=== PATIENT | female | born 1950 | race Caucasian/White ===

== ENCOUNTER → 2016-06-27 | Outpatient (CLI) | payer OTHER ==
[~2016-06-27] MED LIST: ACET1TAB84 PO; ALBU1AER9 INH; ALPR-411 PO; ASPITAB44 PO; BCTROWC TOP; BENA20TA14 PO; CHOL20005 PO; CLOB1OIN2 TOP; FLUT0.15 NAE; GLC/500 PO; GLUC1CAP35 PO; LEVO200T PO; LEVO200T6 PO; LEVO75TA5 PO; LORA5TAB3 PO; MENT4GEL TOP; NAPR1TAB9 PO; OXYC1TAB PO; OXYC20TA50 PO; SALI0.6517 NAE; TRAZ100T29 PO; [UNRECOGNIZED DRUG - REMARK] TOP
--- NOTE | 2016-06-27 09:12 | DIAGNOSTIC IMAGING REPORT ---
RIGHT FOOT MIN 3 VIEWS ROUTINE CLINICAL HISTORY: M76.61,F41.1, right foot and Achilles pain COMPARISON: None. DISCUSSION: No acute fractures are visualized. There is a tiny Achilles insertional spur and tiny plantar calcaneal spur. There is dorsal soft tissue swelling. There are minor degenerative changes present. IMPRESSION: Ankle and dorsal soft tissue swelling. No fractures identified. No evidence of erosive disease. Electronically signed by: Washington Aponte M.D. 06/27/2016 9:11 AM Dictated Date/Time: 06/27/2016 9:10 AM
--- NOTE | 2016-06-27 09:13 | DIAGNOSTIC IMAGING REPORT ---
RIGHT ANKLE 3 VIEWS HISTORY: Right ankle and foot pain. COMPARISON: None. FINDINGS: There is no fracture or dislocation. Thickening of the distal Achilles tendon. Small plantar and posterior calcaneal spurs. Diffuse soft tissue swelling. No radiopaque foreign bodies. IMPRESSION: 1. No fracture or dislocation within the right ankle. 2. Distal thickening of the Achilles tendon suggestive of tendinosis. Electronically signed by: Vinod Toro M.D. 06/27/2016 9:12 AM Dictated Date/Time: 06/27/2016 9:10 AM
== END | disposition home or self-care (01) ==
LOC: C.RAD1850 08:34 → MERGE 08:34
PROVIDERS: ATTEND Family Medicine
DX: M76.61 Achilles tendinitis, right leg (principal); F41.1 Generalized anxiety disorder

== ENCOUNTER → 2016-07-09 | Outpatient (CLI) | payer OTHER ==
[~2016-07-09] MED LIST changes: +ALBU18002 INH; +BCTROWC EXT; +SALI0.6510 NAE; +[UNRECOGNIZED DRUG - CODE] TOP
--- NOTE | 2016-07-09 10:44 | DIAGNOSTIC IMAGING REPORT ---
RIGHT LOWER EXT JOINT WITHOUT HISTORY: Right LEG ACHILLES TENDONITIS, RT ANKLE PAIN Right TECHNIQUE: Multiplanar multisequence MRI of the right ankle was performed without contrast. COMPARISON STUDY: Right ankle 06/27/2016. FINDINGS: Abnormal signal and thickening within the Achilles tendon most pronounced distally. This is consistent with acute tendinosis. Trace fluid within the retrocalcaneal bursa consistent with a bursitis. No acute fracture or dislocation. There is subcutaneous trace edema within the ankle. Cartilage spaces are maintained. The medial and lateral stabilizing ligaments are intact. The flexor and extensor tendons are normal in course, caliber, and signal intensity. Abnormal focal thickening and increased signal within the peroneus longus tendon as it crosses the lateral malleolus. This is consistent with a tendinopathy. There is also thinning of the peroneus brevis tendon consistent with a partial tear/tendinopathy. The plantar fascia appears intact. However, there is a focal area of susceptibility artifact at the proximal attachment of the plantar fascia best seen on sagittal image 13. This could represent a metallic foreign body. Mild degenerative changes within the midfoot. IMPRESSION: 1. Acute Achilles tendinosis with associated retrocalcaneal bursitis. 2. Tendinopathy/partial tear of the peroneus longus and brevis tendons. 3. Focal metallic artifact at the proximal attachment of the plantar fascia. This could represent a foreign body. Dedicated CT is recommended for further evaluation. 4. Subcutaneous edema within the ankle. Electronically signed by: Vinod Toor M.D. 07/09/2016 10:43 AM Dictated Date/Time: 07/09/2016 10:35 AM
== END | disposition home or self-care (01) ==
LOC: C.OPENMRI 08:50 → MERGE 08:50
PROVIDERS: ATTEND Physical Medicine & Rehabilitation
DX: M76.61 Achilles tendinitis, right leg (principal); M77.51 Other enthesopathy of right foot and ankle; R60.9 Edema, unspecified

== ENCOUNTER → 2016-07-25 | Outpatient (CLI) | payer OTHER ==
--- NOTE | 2016-07-25 14:17 | DIAGNOSTIC IMAGING REPORT ---
THYROID ULTRASOUND HISTORY: FATIGUE COMPARISON: None. FINDINGS: Right lobe: 5.9 x 2.6 x 2.0 cm. Diffusely hypoechoic. No nodules. Left lobe: 6.7 x 3.0 x 2.6 cm. Diffusely hypoechoic. No nodules. Isthmus: 1.2 cm. No nodules. Right cervical lymph node demonstrating a slightly thickened cortex measuring 1.6 x 1.0 x 0.9 cm. IMPRESSION: Mildly enlarged and diffusely hypoechoic thyroid gland. No nodules identified. A single borderline enlarged right cervical lymph node. Electronically signed by: Vinod Toro M.D. 07/25/2016 2:15 PM Dictated Date/Time: 07/25/2016 2:12 PM
== END | disposition home or self-care (01) ==
LOC: C.ULTR 13:04
PROVIDERS: ATTEND Family Medicine
DX: E07.9 Disorder of thyroid, unspecified (principal); R53.83 Other fatigue; R59.0 Localized enlarged lymph nodes

== ENCOUNTER → 2016-08-15 | Day surgery (SDC) | payer OTHER ==
[2016-07-30 09:46] VITALS: Ht 154.9 cm; Wt 131.8 kg
[~2016-08-15] VITALS: Ht 154.9 cm; Wt 131.8 kg
[~2016-08-15] MED LIST changes: +BUPIVACAINE 0.25% 2.5MG/ML PF 10 ML VIAL INFIL ONE; +IOPAMIDOL INJ 61% 15 ML VIAL ONE; +LIDOCAINE HCL 1% MPF 5 ML VIAL ONE; -OXYC1TAB PO
--- NOTE | 2016-08-15 11:56 | History & Physical Bridge - [place] ---
H&P Re-Evaluation Bridge Note: I have examined the patient, reviewed the History & Physical and in the interval since the performance of the History & Physical I have noted the following changes of clinical significance: No changes noted
--- NOTE | 2016-08-15 12:26 | Discharge Instructions ---
Discharge Instructions Date of Service August 15, 2016. Visit Reason for Visit: Saroiliitis Discharge Discharge Diagnosis / Problem: low back pain Discharge Goals Goal(s): Decrease discomfort, Improve function Medications Stopped Medications Name(s): Patient reports taking one aleve last evening Activity Recommendations Activity Limitations: resume your previous activity Anesthesia . Post Anesthesia Instructions: If you have had General Anesthesia or IV Sedation: * Do not drive today. * Resume driving when surgeon permits. * Do not make important decisions or sign legal documents today. * Call surgeon for: 1. Temperature elevations greater than 101 degrees F. 2. Uncontrollable pain. 3. Excessive bleeding. 4. Persistent nausea and vomiting. 5. Medication intolerance (nausea, vomiting or rash). * For nausea and vomiting use only clear liquids such as: tea, soda, bouillon until nausea subsides, then gradually increase diet as tolerated. * If you have any concerns or questions, call your surgeon's office. If physician is unavailable and it is an emergency, call 911 or go to the nearest emergency room. . Diet Recommendations Recommended Home Diet: resume previous diet Procedures Procedures Performed: Right Sacroiliac Joint Injection Pending Studies Studies pending at discharge: no Medical Emergencies . Who to Call and When: Medical Emergencies: If at any time you feel your situation is an emergency, please call 911 immediately. . Non-Emergent Contact Non-Emergency issues call your: Specialist . . "Provider Documentation" section prepared by Shakir Ogden. .
[2016-08-15 12:36] VITALS: BP 125/80; PULSE 79; O2SAT 96
--- NOTE | 2016-08-15 13:08 | OPERATIVE REPORT ---
DATE OF OPERATION: 08/15/2016 PREOPERATIVE DIAGNOSIS: Right sacroiliitis. POSTOPERATIVE DIAGNOSIS: Same. PROCEDURE: Right sacroiliac joint injection under fluoroscopic guidance. SURGEON: Dr. Shakir Ogden. INDICATIONS: The patient is a 66-year-old white female that presents today for a right SI joint injection for chronic longstanding right SI pain that has not responded to conservative measures. She is doing a little bit better now that she has been off of her walker boot for issues of peroneal and Achilles tendinopathy of the right lower extremity. PHYSICAL EXAMINATION: Pleasant female seated comfortably in no apparent distress. She has point tenderness to palpation of the right SI joint. It is exquisitely tender. This is worse with extension. She has no focal proximal weakness. CONSENT: Verbal and written consent was obtained from the patient. Risks and benefits were reviewed. Risks include but are not limited to abscess and allergic reaction. She wishes to proceed. PROCEDURE: The patient was taken back to the special procedures room of [facility]. She was unable to maintain a prone position, was maintained at a 30 degree angle. The fluoroscope was adjusted to try to capture the edge of the hip and sacral area. Overlying skin was anesthetized using 5 mL of Lidocaine 1% 25 gauge 1.5-inch needle a 22 gauge 5 inch needle was then used to contact bone at the junction between the hip and the sacrum which was presumed to be the joint. She then underwent injection after negative aspiration of 40 mg of Depo-Medrol, 1.5 mL of bupivacaine 0.25%. Injection was well tolerated. DISPOSITION: The patient is taken out into the discharge recovery area where she will be discharged home once discharge criteria have been met. Follow up in the [facility] office in 2-4 weeks. I attest to the content of the Intraoperative Record and any orders documented therein. Any exceptions are noted below. ONELIA
== END | disposition home or self-care (01) ==
LOC: X.SURG 11:13
PROVIDERS: ATTEND Physical Medicine & Rehabilitation
DX: M46.1 Sacroiliitis, not elsewhere classified (principal)

== ENCOUNTER → 2016-09-16 | Outpatient (CLI) | payer OTHER ==
[~2016-09-16] MED LIST changes: -BUPIVACAINE 0.25% 2.5MG/ML PF 10 ML VIAL INFIL ONE; -IOPAMIDOL INJ 61% 15 ML VIAL ONE; -LIDOCAINE HCL 1% MPF 5 ML VIAL ONE
--- NOTE | 2016-09-16 17:03 | DIAGNOSTIC IMAGING REPORT ---
ULTRASOUND RIGHT VENOUS DOPP LOWER EXT UNILAT CLINICAL HISTORY: Right leg pain and swelling COMPARISON STUDY: 10/17/2015 FINDINGS: Real-time and color flow Doppler imaging were performed. Flow was seen within the femoral, popliteal and calf veins with no intraluminal thrombus demonstrated. The saphenous vein is patent. The study was moderately limited from technical standpoint, as the patient would not allow optimal compression due to pain. IMPRESSION: No evidence of right lower extremity DVT. Electronically signed by: Washington Aponte M.D. 09/16/2016 5:02 PM Dictated Date/Time: 09/16/2016 5:01 PM
--- NOTE | 2016-09-22 13:07 | CODING QUERY MEDICAL NECESSITY ---
SUPPORTING DIAGNOSIS NEEDED Dr. Ogden, A supporting diagnosis is required for the test/procedure performed on this patient in order for us to be reimbursed by the patient's insurance. Please provide a supporting diagnosis for the following test/procedure listed below next to the test name along with your signature. *If there is no additional diagnosis for this patient that would support the following test/procedure please document that below next to the test/procedure. Test(s)/Procedure(s) that require a supporting diagnosis: * ([id number]) VENOUS DOPPLER LOWER EXT UNILA DIAGNOSIS: DATE OF SERVICE: 09/16/16 Provider Signature: Date: Thank you Earnest Nguyen [facility] Information Management Once completed, please kindly fax back to [phone] For questions please call [phone]
== END | disposition home or self-care (01) ==
LOC: C.ULTR 16:09
PROVIDERS: ATTEND Physical Medicine & Rehabilitation
DX: M79.89 Other specified soft tissue disorders (principal); M79.604 Pain in right leg

== ENCOUNTER → 2016-10-17 | Day surgery (SDC) | payer OTHER ==
[2016-09-24 08:35] VITALS: Ht 154.9 cm; Wt 131.8 kg
[~2016-10-17] VITALS: Ht 154.9 cm; Wt 131.8 kg
[~2016-10-17] MED LIST changes: -ALBU18002 INH; -BCTROWC EXT; +BUPIVACAINE 0.25% 2.5MG/ML PF 10 ML VIAL ONE; +IOPAMIDOL INJ 61% 15 ML VIAL ONE; +LACTATED RINGER'S 1000ML 1,000 ML IV SCH; -LEVO200T PO; +LIDOCAINE HCL 1% MPF 5 ML VIAL ONE; -SALI0.6510 NAE; -[UNRECOGNIZED DRUG - CODE] TOP
[2016-10-17 09:53] VITALS: BP 150/88; PULSE 88; TEMP 36.9; O2SAT 97
== END | disposition home or self-care (01) ==
LOC: X.SURG 09:35
PROVIDERS: ATTEND Physical Medicine & Rehabilitation
DX: M46.1 Sacroiliitis, not elsewhere classified (principal); Z53.9 Procedure and treatment not carried out, unspecified reason

== ENCOUNTER → 2016-12-17 | Day surgery (SDC) | payer OTHER ==
[2016-11-18 10:30] VITALS: BMI 55.0
[~2016-12-17] VITALS: Ht 154.9 cm; Wt 126.0 kg
[~2016-12-17] MED LIST changes: +ALBU18002 INH; +ATROPINE SULFATE 0.1 MG/ML 5ML SYR IV PRN; +BCTROWC EXT; +DEXTROSE 5% 100ML 100 ML IV ONE; +EpHEDrine SULFATE INJ 50 MG/ML AMP IV PRN; +FENTANYL CITRATE INJ 50 MCG/1 ML 2 ML VIAL IV PRN; +FENTANYL CITRATE INJ 50 MCG/1 ML 2 ML VIAL ONE; +FLUMAZENIL 0.1 MG/1 ML 10 ML VIAL IV PRN; +HYDROmorphone INJ 2 MG/ML SYR/VIAL IV PRN; -IOPAMIDOL INJ 61% 15 ML VIAL ONE; +LABETALOL HCL IV 5 MG/ML 20ML IV PRN; +LEVO200T PO; +LIDOCAINE 2% 20 MG/ML 5ML SYR ONE; +LIDOCAINE HCL 1% 20 ML VIAL ONE; -LIDOCAINE HCL 1% MPF 5 ML VIAL ONE; +NALOXONE HCL 0.4 MG/1 ML VIAL/CARP IV PRN; +NURSING VERBAL MED ORDER ONE; +ONDANSETRON INJ 2 MG/ML 2 ML VIAL IV PRN; +ONDANSETRON INJ 2 MG/ML 2 ML VIAL ONE; +PHENYLEPHRINE 100MCG/ML 5ML SYR IV PRN; +PROPOFOL IV EMULSION 10 MG/ML 20 ML VIAL IV ONE; +SALI0.6510 NAE
[2016-12-17 07:58] VITALS: Ht 154.9 cm; Wt 126.0 kg
--- NOTE | 2016-12-17 09:33 | Discharge Instructions ---
Discharge Instructions Date of Service Dec 17, 2016. Visit Reason for Visit: Sacroiliitis Discharge Discharge Diagnosis / Problem: low back pain Discharge Goals Goal(s): Decrease discomfort, Improve function Activity Recommendations Activity Limitations: resume your previous activity Anesthesia . Post Anesthesia Instructions: If you have had General Anesthesia or IV Sedation: * Do not drive today. * Resume driving when surgeon permits. * Do not make important decisions or sign legal documents today. * Call surgeon for: 1. Temperature elevations greater than 101 degrees F. 2. Uncontrollable pain. 3. Excessive bleeding. 4. Persistent nausea and vomiting. 5. Medication intolerance (nausea, vomiting or rash). * For nausea and vomiting use only clear liquids such as: tea, soda, bouillon until nausea subsides, then gradually increase diet as tolerated. * If you have any concerns or questions, call your surgeon's office. If physician is unavailable and it is an emergency, call 911 or go to the nearest emergency room. . Diet Recommendations Recommended Home Diet: no limitations Procedures Procedures Performed: Right Cooled SI Joint Denervation Pending Studies Studies pending at discharge: no Medical Emergencies . Who to Call and When: Medical Emergencies: If at any time you feel your situation is an emergency, please call 911 immediately. . Non-Emergent Contact Non-Emergency issues call your: Specialist . . "Provider Documentation" section prepared by Shakir Ogden. .
[2016-12-17 09:47] VITALS: TEMP 36.5
[2016-12-17 10:14] VITALS: BP 130/91; PULSE 79; O2SAT 96
--- NOTE | 2016-12-17 10:21 | Anesthesia Progress Nt - [facility] ---
Anesthesia Post Op Note Date & Time Dec 17, 2016 at 10:21 Vital Signs Pain Intensity: 10 Vital Signs Past 12 Hours Date Time Temp Pulse Resp B/P (MAP) Pulse Ox O2 Delivery O2 Flow Rate FiO2 12/17/16 10:14 79 18 130/91 (104) 96 Room Air 12/17/16 09:47 36.5 86 20 175/66 (102) 96 Room Air 12/17/16 07:38 36.5 84 16 139/68 (91) 96 Room Air Notes Mental Status: alert / awake / arousable, participated in evaluation Pt Amnestic to Procedure: Yes Nausea / Vomiting: adequately controlled Pain: adequately controlled Airway Patency, RR, SpO2: stable & adequate BP & HR: stable & adequate Hydration State: stable & adequate Anesthetic Complications: no major complications apparent
--- NOTE | 2016-12-17 10:26 | OPERATIVE REPORT ---
DATE OF OPERATION: 12/17/2016 PREOPERATIVE DIAGNOSIS: Chronic right sacroiliitis pain. POSTOPERATIVE DIAGNOSIS: Same. PROCEDURE: Right radiofrequency cooled SI joint denervation. INDICATIONS: The patient is a 66-year-old white female who has chronic right sacroiliac joint pain. She responded favorably to an SI joint injection for a diagnostic purposes. She presents today for a right SI joint denervation procedure as she is continuing to have problems of the right SI joint. PHYSICAL EXAMINATION: Pleasant female. She has point tenderness to palpation of her right SI joint. It is worse with extension. She has no focal weakness of lower extremities and has some chronic venous stasis changes of the right lower extremity. CONSENT: Verbal and written consent was obtained from the patient. Risks and benefits were reviewed. Risks include, but are not limited to abscess, allergic reaction and nerve denervation. The patient wishes to proceed. DESCRIPTION OF PROCEDURE: The patient was taken back into OR #4 of the [facility]. She was maintained in a prone position, which was slightly uncomfortable for her. Backside was cleansed with Betadine x3 and a dry sterile dressing was applied. Fluoroscope was used to identify the right sacroiliac joint. The overlying skin at S1 was anesthetized with total of 6 mL of lidocaine 1%. Initially with 1.5-inch needle and then with a 3-inch needle to get lower depth. She then underwent placement of the denervation needle. It was placed in 8 separate spots and after placement and confirmation fluoroscopically and contact of the sacrum, she underwent denervation for 2 minutes and 30 seconds at each of the 8 spots. The 8 spots that were done where the right sacral ala, the right superior lateral S1 foramen area, the right lateral S1 foramen area, the right inferior lateral S1 foramen area, the right S2 superior foramen area, the right lateral S2 foramen area, the right lateral inferior S2 foramen area and then lastly the right lateral S3 superior foramen region. Procedure was well tolerated. DISPOSITION: 1. She was taken to the discharge recovery area, where she will be discharged home once discharge criteria have been met. 2. Follow up in the [facility] office in 2-4 weeks. I attest to the content of the Intraoperative Record and any orders documented therein. Any exception s are noted below.
== END | disposition home or self-care (01) ==
LOC: X.SURG 06:35
PROVIDERS: ATTEND Physical Medicine & Rehabilitation
DX: M46.1 Sacroiliitis, not elsewhere classified (principal); M79.7 Fibromyalgia; G47.33 Obstructive sleep apnea (adult) (pediatric)

== ENCOUNTER → 2017-01-21 | Outpatient (CLI) | payer OTHER ==
[~2017-01-21] MED LIST changes: -ALBU1AER9 INH; -ATROPINE SULFATE 0.1 MG/ML 5ML SYR IV PRN; -BCTROWC TOP; -BUPIVACAINE 0.25% 2.5MG/ML PF 10 ML VIAL ONE; -DEXTROSE 5% 100ML 100 ML IV ONE; -EpHEDrine SULFATE INJ 50 MG/ML AMP IV PRN; -FENTANYL CITRATE INJ 50 MCG/1 ML 2 ML VIAL IV PRN; -FENTANYL CITRATE INJ 50 MCG/1 ML 2 ML VIAL ONE; -FLUMAZENIL 0.1 MG/1 ML 10 ML VIAL IV PRN; -GLC/500 PO; -HYDROmorphone INJ 2 MG/ML SYR/VIAL IV PRN; -LABETALOL HCL IV 5 MG/ML 20ML IV PRN; -LACTATED RINGER'S 1000ML 1,000 ML IV SCH; -LEVO200T6 PO; -LEVO75TA5 PO; -LIDOCAINE 2% 20 MG/ML 5ML SYR ONE; -LIDOCAINE HCL 1% 20 ML VIAL ONE; -NALOXONE HCL 0.4 MG/1 ML VIAL/CARP IV PRN; -NURSING VERBAL MED ORDER ONE; -ONDANSETRON INJ 2 MG/ML 2 ML VIAL IV PRN; -ONDANSETRON INJ 2 MG/ML 2 ML VIAL ONE; -PHENYLEPHRINE 100MCG/ML 5ML SYR IV PRN; -PROPOFOL IV EMULSION 10 MG/ML 20 ML VIAL IV ONE; -SALI0.6517 NAE
== END | disposition home or self-care (01) ==
LOC: C.RDSM 12:00
PROVIDERS: ATTEND Physical Medicine & Rehabilitation Sports Medicine
DX: G56.01 Carpal tunnel syndrome, right upper limb (principal)

== ENCOUNTER → 2017-01-29 | Day surgery (SDC) | payer OTHER ==
[2017-01-15 08:51] VITALS: Ht 154.9 cm; Wt 125.9 kg
[~2017-01-29] VITALS: Ht 154.9 cm; Wt 125.9 kg
[~2017-01-29] MED LIST changes: -BCTROWC EXT; +BUPIVACAINE 0.25% 2.5MG/ML PF 10 ML VIAL ONE; +IOPAMIDOL INJ 61% 15 ML VIAL ONE; +LIDOCAINE HCL 1% MPF 5 ML VIAL ONE; +[UNRECOGNIZED DRUG - CODE] TOP; -[UNRECOGNIZED DRUG - REMARK] TOP
[2017-01-29 13:10] VITALS: TEMP 36.6
--- NOTE | 2017-01-29 13:15 | Discharge Instructions ---
Discharge Instructions Date of Service Jan 29, 2017. Visit Reason for Visit: Sacroiliitis Discharge Discharge Diagnosis / Problem: low back pain Discharge Goals Goal(s): Decrease discomfort, Improve function Activity Recommendations Activity Limitations: resume your previous activity Anesthesia . Post Anesthesia Instructions: If you have had General Anesthesia or IV Sedation: * Do not drive today. * Resume driving when surgeon permits. * Do not make important decisions or sign legal documents today. * Call surgeon for: 1. Temperature elevations greater than 101 degrees F. 2. Uncontrollable pain. 3. Excessive bleeding. 4. Persistent nausea and vomiting. 5. Medication intolerance (nausea, vomiting or rash). * For nausea and vomiting use only clear liquids such as: tea, soda, bouillon until nausea subsides, then gradually increase diet as tolerated. * If you have any concerns or questions, call your surgeon's office. If physician is unavailable and it is an emergency, call 911 or go to the nearest emergency room. . Diet Recommendations Recommended Home Diet: resume previous diet Procedures Procedures Performed: LEFT SACROILIAC JOINT INJECTION Pending Studies Studies pending at discharge: no Medical Emergencies . Who to Call and When: Medical Emergencies: If at any time you feel your situation is an emergency, please call 911 immediately. . Non-Emergent Contact Non-Emergency issues call your: Specialist . . "Provider Documentation" section prepared by Shakir Ogden. .
[2017-01-29 13:24] VITALS: BP 119/79; PULSE 85; O2SAT 95
--- NOTE | 2017-01-29 13:25 | OPERATIVE REPORT ---
DATE OF OPERATION: 01/29/2017 PREOPERATIVE DIAGNOSIS: Left sacroiliitis. POSTOPERATIVE DIAGNOSIS: Left sacroiliitis. PROCEDURE: Left sacroiliac joint injection under fluoroscopic guidance. INDICATIONS: This patient is a 67-year-old white female who has done very well with denervation on the right sacroiliac joint. She reports that now she has a similar symptom or pain that fills and it is increased on the left SI joint and she presents today for an SI joint injection to provide her with relief. PHYSICAL EXAMINATION: Pleasant female seated comfortably. She has tenderness to palpation of her left SI joint. She has normal lower extremity strength with negative seated straight leg raises. She has some worsening with extension on the left SI region. CONSENT: Verbal and written consent was obtained from the patient. Risks and benefits were reviewed. Risks include but are not limited to abscess and allergic reaction. The patient wishes to proceed. DESCRIPTION OF PROCEDURE: The patient was taken back in the special procedures room of the [facility] where she was maintained in a prone position. Backside was cleansed with Betadine x3 and a dry sterile dressing was applied. Fluoroscope was used to identify the left SI joint. The overlying skin was anesthetized with 4 mL of lidocaine 1% with a 25 gauge 1.5-inch needle. A 22 gauge 5 inch spinal needle was then directed under fluoroscopic guidance into the joint. Isovue 300 contrast was avoided given her allergy and she was injected after negative aspiration of 40 mg of Depo-Medrol and 1.5 mL of bupivacaine 0.25%. Injection was well tolerated. DISPOSITION: 1. The patient was taken out into the discharge recovery area where she will be discharged home once discharge criteria have been met. 2. Follow up in the [facility] office in 2-4 weeks. I attest to the content of the Intraoperative Record and any orders documented therein. Any exception s are noted below.
== END | disposition home or self-care (01) ==
LOC: X.SURG 12:16
PROVIDERS: ATTEND Physical Medicine & Rehabilitation
DX: M46.1 Sacroiliitis, not elsewhere classified (principal)

== ENCOUNTER → 2017-08-14 | Day surgery (SDC) | payer OTHER ==
[2017-06-30 15:04] VITALS: BMI 53.0
[~2017-08-14] VITALS: Ht 154.9 cm; Wt 127.3 kg
[~2017-08-14] MED LIST changes: -BUPIVACAINE 0.25% 2.5MG/ML PF 10 ML VIAL ONE; +DexMEDEtomidine HCL IV 100 MCG/ML VIAL IV ONE; +FENTANYL CITRATE INJ 50 MCG/1 ML 2 ML VIAL ONE; -GLUC1CAP35 PO; -IOPAMIDOL INJ 61% 15 ML VIAL ONE; +KETAMINE HCL INJ 50 MG/ML 10 ML VIAL ONE; +LACTATED RINGER'S 1000ML 1,000 ML IV SCH; -LIDOCAINE HCL 1% MPF 5 ML VIAL ONE; -MENT4GEL TOP; +MIDAZOLAM HCL 1 MG/ML 2ML VIAL ONE; +SODIUM CHLORIDE 0.9% INJ 10 ML VIAL ONE; -TRAZ100T29 PO
[2017-08-14 10:57] VITALS: BP 146/89; PULSE 84; TEMP 36.6; O2SAT 95; Ht 154.9 cm; Wt 127.3 kg
--- NOTE | 2017-08-14 12:23 | Anesthesiology Progress Note ---
Anesthesia Progress Note Date of Service August 14, 2017. Progress Notes The patient is a 67 with a h/o multiple multiple medical problems including HTN , DVT, GERD, DM, hypothyroidism, anxiety, depression, chronic pain, fibromyalgia and morbid obesity scheduled for MRI of the lumbar spine. The patient has been quite argumentative with the staff preoperatively and has stated that her doctor is the past "are idiots" and that her PCP " doesn't do anything for me" and that "everyone is driving me crazy." She also stated that "Dr. Okeefe screwed up my hand." Several times I tried to reassure the patient that we would do our best to make sure she was as comfortable and as safe as possible during the procedure. At one point during the preoperative evaluation, the patient also mentioned that she was worried about having a DVT. She stated that at one point last night after walking around her L leg was red and she thought more swollen, but that today the redness was gone. She has chronic pain in both legs and complains of pain when either leg is touched. There is no erythema or swelling visible. The patient stated that since her leg is better that she doesn't think she has a DVT but is just always worried about one. I told the patient that if she was worried that she could go to the ED and get it evaluated first. She then reiterated that she does not believe she has one as she is better now but that she is always paranoid about it due to her prior history. I called Dr. Betts who stated that if it seems unlikely that the patient had a DVT, but if she was still worried about it that she could go to the ED for further evaluation after the procedure. I told this to the patient who then stated that she wasn't worried about it as her leg is now better and really wants her MRI done today.
[2017-08-14 13:19] VITALS: BP 136/83; PULSE 85; TEMP 36.6; O2SAT 99
--- NOTE | 2017-08-14 13:32 | DIAGNOSTIC IMAGING REPORT ---
LUMBAR SPINE W/O CONTRAST CLINICAL HISTORY: 67 years-old Female presenting with LUMBAR RADICULOPATHY with severe spinal pain, falls, right hip pain. TECHNIQUE: Multisequence, multiplanar MR imaging of the lumbar spine was performed without the use of intravenous contrast. IV contrast: None. COMPARISON: CT from 03/07/2016. FINDINGS: Diagnostic sensitivity is significantly limited by motion artifact and limited sequences acquired due to patient intolerance. 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 Allowing for severe scoliosis, normal lumbar lordosis. Minimal edema versus fatty change eccentrically at the L5-S1 endplates. Remaining vertebral bodies maintain normal signal intensity, height, and alignment. Diffuse intervertebral disc desiccation. Anterior osteophytosis noted at several levels. No significant disc bulges. Fluid noted in the L1-2 disc space. Allowing for active fat saturated T2-weighted imaging, no gross evidence of bony edema in the L1 or L2 vertebral bodies. Asymmetric facet arthropathy noted. This results in neural foraminal narrowing to varying degrees most significant at L3-4 and L4-5. IMPRESSION: 1. Limited acquisition with motion artifact degradation of the acquired sequences. This significantly limits diagnostic sensitivity the exam. Allowing for this, severe levoscoliotic curvature of the lumbar spine with facet arthropathy resulting in neural foraminal narrowing most significantly at L3-4 and L4-5. 2. Fluid in the L1-2 disc space without convincing evidence of bony edema. This may be degenerative in etiology. Correlate clinically to exclude infectious symptoms. Electronically signed by: Jose Combs M.D. 08/14/2017 1:31 PM Dictated Date/Time: 08/14/2017 1:25 PM
[2017-08-14 13:49] VITALS: BP 100/63; PULSE 90; O2SAT 99
[2017-08-14 14:19] VITALS: BP 111/82; PULSE 82; O2SAT 100
--- NOTE | 2017-08-14 14:19 | Discharge Instructions ---
Discharge Instructions Date of Service August 14, 2017. Visit Reason for Visit: Lumbar Radiculopathy Discharge Discharge Diagnosis / Problem: Lumbar Radiculopathy Discharge Goals Goal(s): Diagnostic testing Activity Recommendations Activity Limitations: per Instructions/Follow-up section Anesthesia . Post Anesthesia Instructions: If you have had General Anesthesia or IV Sedation: * Do not drive today. * Do not drink alcohol today. * Resume driving when surgeon permits. * Do not make important decisions or sign legal documents today. * Call surgeon for: 1. Temperature elevations greater than 101 degrees F. 2. Uncontrollable pain. 3. Excessive bleeding. 4. Persistent nausea and vomiting. 5. Medication intolerance (nausea, vomiting or rash). * For nausea and vomiting use only clear liquids such as: tea, soda, bouillon until nausea subsides, then gradually increase diet as tolerated. * If you have any concerns or questions, call your surgeon's office. If physician is unavailable and it is an emergency, call 911 or go to the nearest emergency room. . Diet Recommendations Recommended Home Diet: resume previous diet Pending Studies Studies pending at discharge: yes List of pending studies: MRI Results. Follow up with your ordering physician. Medical Emergencies . Who to Call and When: Medical Emergencies: If at any time you feel your situation is an emergency, please call 911 immediately. If you have any chest pain, shortness of breath, lightheaded or dizziness, or with any other concerns please call 911 or go to the ED. . Non-Emergent Contact Non-Emergency issues call your: Primary Care Provider Call Non-Emergent contact if: you have a fever, your pain is unusual for you, your pain is concerning you, you have any medication questions . . "Provider Documentation" section prepared by Eva Liu. .
--- NOTE | 2017-08-14 14:24 | Anesthesiology Progress Note ---
Anesthesia Post Op Note Date & Time August 14, 2017 at 14:23 Vital Signs Pain Intensity: 0 Vital Signs Past 12 Hours Date Time Temp Pulse Resp B/P (MAP) Pulse Ox O2 Delivery O2 Flow Rate FiO2 08/14/17 13:49 90 18 100/63 99 Room Air 08/14/17 13:19 36.6 85 18 136/83 99 Room Air 08/14/17 10:57 36.6 84 16 146/89 (108) 95 Room Air Notes Mental Status: alert / awake / arousable, participated in evaluation Pt Amnestic to Procedure: Yes Nausea / Vomiting: adequately controlled Pain: adequately controlled Airway Patency, RR, SpO2: stable & adequate BP & HR: stable & adequate Hydration State: stable & adequate Anesthetic Complications: no major complications apparent The patient was comfortable in Phase II recovery, sitting up in bed and eating a snack. She stated she felt well with no complaints.
== END ==
LOC: C.ACU 10:08
PROVIDERS: ATTEND Physical Medicine & Rehabilitation
DX: M46.1 Sacroiliitis, not elsewhere classified (principal); M54.16 Radiculopathy, lumbar region; F41.9 Anxiety disorder, unspecified; E03.9 Hypothyroidism, unspecified; E66.01 Morbid (severe) obesity due to excess calories; E11.9 Type 2 diabetes mellitus without complications; G47.33 Obstructive sleep apnea (adult) (pediatric); M19.90 Unspecified osteoarthritis, unspecified site; Z86.711 Personal history of pulmonary embolism; Z82.49 Family history of ischemic heart disease and other diseases of the circulatory system; Z82.3 Family history of stroke; Z83.3 Family history of diabetes mellitus; Z88.1 Allergy status to other antibiotic agents; Z91.040 Latex allergy status; Z91.041 Radiographic dye allergy status; Z88.5 Allergy status to narcotic agent; Z86.73 Personal history of transient ischemic attack (TIA), and cerebral infarction without residual deficits; Z79.899 Other long term (current) drug therapy; Z87.442 Personal history of urinary calculi; Z85.41 Personal history of malignant neoplasm of cervix uteri

== ENCOUNTER 2017-11-30 21:46 | Emergency (ER) | payer OTHER ==
[~2017-11-30 21:46] MED LIST changes: +BENA10TA10 PO; -DexMEDEtomidine HCL IV 100 MCG/ML VIAL IV ONE; -FENTANYL CITRATE INJ 50 MCG/1 ML 2 ML VIAL ONE; -FLUT0.15 NAE; -KETAMINE HCL INJ 50 MG/ML 10 ML VIAL ONE; -LACTATED RINGER'S 1000ML 1,000 ML IV SCH; +LEVO75TA PO; -MIDAZOLAM HCL 1 MG/ML 2ML VIAL ONE; +NYSCR30 EXT; -SODIUM CHLORIDE 0.9% INJ 10 ML VIAL ONE
[2017-11-30 22:02] VITALS: TEMP 36.9; Ht 154.9 cm
[2017-11-30] MEDS ORDERED: SODIUM CHLORIDE 0.9% 500ML 500 ML IV STA (22:21)
[2017-11-30] MEDS ORDERED: DiphenhydrAMINE HCL 50 MG/ML VIAL IV STA (22:21)
[2017-11-30] MEDS ORDERED: METHYLPREDNISOLONE 125 MG VIAL IV STA (22:21)
[2017-11-30] MEDS ORDERED: MoRPHine SULFATE 4 MG/ML 1 ML CARP\\VIAL IV STA (22:44)
[2017-11-30 22:47] LABS: ISTAT CREATININE 0.9 mg/dl (0.6-1.3); ISTAT IONIZED CALCIUM 1.18 mmol/l (1.12-1.32)
[2017-11-30] MEDS ORDERED: FENTANYL CITRATE INJ 50 MCG/1 ML 2 ML VIAL ONE (22:47)
[2017-11-30 22:50] LABS: BASO % 0.2 %; BASO ABS # 0.02 K/uL (0-0.2); EOS % 2.5 %; EOS ABS # 0.31 K/uL (0-0.5); IG# 0.02 K/uL (0.00-0.02); LYMPH % 24.6 %; MEAN CELL VOLUME 92.5 fL (80-100); MEAN CORPUSCULAR HEMOGLOBIN 29.5 pg (25-34); MEAN CORPUSCULAR HGB CONC 31.9 g/dl (32-36); MONO % 7.2 %; MONO ABS # 0.88 K/uL (0.11-0.59); NEUT % 65.3 %; NEUT ABS # 7.98 K/uL (1.4-6.5); PLATELET COUNT 300 K/uL (130-400); RED CELL DISTRIBUTION WIDTH CV 14.2 % (11.5-14.5); RED CELL DISTRIBUTION WIDTH SD 48.4 fL (36.4-46.3); WHITE BLOOD COUNT 12.21 K/uL (4.8-10.8)
--- NOTE | 2017-11-30 23:12 | EMERGENCY ROOM VISIT NOTE ---
History Report prepared by Fawn: Zoey Garcia Under the Supervision of: Dr. Caesar Bush M.D. First contact with patient: 22:18 Chief Complaint: ABNORMAL LABS Stated Complaint: REFERRED FOR ABNORMAL TESTING, R/O BLOOD CLOT History of Present Illness The patient is a 67 year old female who presents to the Emergency Room with complaints of constant chest pain and shortness of breath beginning a few weeks ago. She notes her PCP sent her for blood work due to SOB beginning a few months ago, and CP that has been worsening the past few weeks. The patient states she was referred to the ED for a positive D-dimer. She notes she has pain radiating from her R lung into her back. The patient states she is also extremely weak and shaky. Source of History: patient Onset: few weeks ago Position: chest Quality: other (SOB, chest pain) Timing: constant Associated Symptoms: + weakness Note: Associated symptom: pain radiating from R lung into back, shakiness Review of Systems See HPI for pertinent positives and negatives. A total of ten systems were reviewed and were otherwise negative. Past Medical & Surgical Medical Problems: (1) Anxiety (2) CPAP (continuous positive airway pressure) dependence (3) DVT (deep venous thrombosis) (4) Elevated d-dimer (5) Personal history of PE (pulmonary embolism) Family History Patient reports no known family medical history. Social History Smoking Status: Never Smoker Alcohol Use: none Drug Use: none Marital Status: Housing Status: lives alone Occupation Status: unemployed Current/Historical Medications Scheduled Acetaminophen (Tylenol Arthritis Ext Rel), 1,300 MG PO BID Benazepril (Lotensin), 20 MG PO QAM Benazepril (Lotensin), 10 MG PO QPM Cholecalciferol (Vitamin D3), 2,000 INTER.UNIT PO QPM Histamine Dihydrochloride-Ment (Activon Arthritis Ultra S 0.028-4.574 %), 1 DOSE TOP PRN Levothyroxine Sodium (Synthroid), 200 MCG PO QAM Levothyroxine Sodium (Synthroid), 75 MCG PO QAM Loratadine & Pseudoephedrine (Claritin-D 12 Hour), 1 TAB PO HS Naproxen (Aleve), 0.5 TAB PO PRN Nystatin (Nystatin Cream), 0 EXT DAILY Oxycodone Hcl (Oxycontin), 20 MG PO Q4H Scheduled PRN Albuterol Sulfate (Proair Respiclick), 2 PUFF INH Q4H PRN for Shortness of Breath Alprazolam (Xanax), 0.5 MG PO DAILY PRN for Anxiety Tefmess-Utnbspolhsmir-Uubrgylg (Migraine Relief), 1 TAB PO UD PRN for Headache Clobetasol Propionate (Temovate), 1 APPLN TOP BID PRN for Lichen Sclerosis Saline ([place] Nasal Almond), 1 SPRAY LIAM DAILY PRN for PRN Allergies Coded Allergies: Adhesives (Verified Allergy, Severe, SKIN BLISTERS/RED-AND WITH EKG STICKERS, 10/26/17) Latex1 -Allergic Contact Dermititis (Verified Allergy, Severe, BLISTERS/ RED SKIN, 10/26/17) Meperidine (Verified Allergy, Severe, CAN NOT FUNCTION, 10/26/17) Ciprofloxacin (Verified Allergy, Unknown, UNKNOWN REACTION, 10/26/17) PER RECORDS Iodinated Diagnostic Agents (Verified Allergy, Unknown, REDNESS AND SWELLING, 10/26/17) Iodine (Verified Allergy, Unknown, Swelling/Red Skin-TOPICAL OK, 10/26/17) Sulfamethoxazole w/Trimethoprim (Verified Allergy, Unknown, THROAT AND TONGUE SWELL, 10/26/17) Unclassified Drugs (Verified Allergy, Unknown, ANY MYCINS-ITCHY THROAT SWELLING, 10/26/17) Diazepam (Verified Adverse Reaction, Severe, CAN NOT FUNCTION, 10/26/17) Physical Exam Vital Signs Date Time Temp Pulse Resp B/P (MAP) Pulse Ox O2 Delivery O2 Flow Rate FiO2 11/30/17 23:39 81 16 110/55 97 Room Air 11/30/17 23:39 Room Air 11/30/17 22:02 36.9 103 18 111/70 95 Room Air Physical Exam GENERAL: Awake, alert, anxious-appearing, in no distress HENT: Normocephalic, atraumatic. Oropharynx unremarkable. Mucous membranes are dry. EYES: Normal conjunctiva. Sclera non-icteric. NECK: Supple. No nuchal rigidity. FROM. No JVD. RESPIRATORY: Clear to auscultation. CARDIAC: Regular rate, normal rhythm. Extremities warm and well perfused. Pulses equal. CHEST: Mild reproducible right anterior chest wall tenderness. ABDOMEN: Soft, non-distended. No tenderness to palpation. No rebound or guarding. No masses. RECTAL: Deferred. MUSCULOSKELETAL: Chest examination reveals no tenderness. The back is symmetrical on inspection without obvious abnormality. There is no CVA tenderness to palpation. No joint edema. LOWER EXTREMITIES: Calves are equal size bilaterally and non-tender. 3+ bilateral edema. No discoloration. NEURO: Normal sensorium. No sensory or motor deficits noted. SKIN: No rash or jaundice noted. Medical Decision & Procedures ER Provider Diagnostic Interpretation: Radiology results as stated below per my review and radiologist interpretation: CT CHEST With Contrast: FINDINGS: No mass lesion are seen. No adenopathy or effusions. The aorta is within normal limits, no aneurysm or dissection. The cardiomediastinal structures are normal. The lungs are clear. The osseous structures are unremarkable. IMPRESSION: No evidence for pulmonary embolus. No evidence for aortic abnormality. No evidence for infiltrates or effusions Radiologist: Marcial Morales MD Study ready at 23:21 and initial results transmitted at 23:29 Laboratory Results 11/30/17 22:30 Red Blood Count 5.08, Mean Corpuscular Volume 92.5, Mean Corpuscular Hemoglobin 29.5, Mean Corpuscular Hemoglobin Concent 31.9, Mean Platelet Volume 9.0, Neutrophils (%) (Auto) 65.3, Lymphocytes (%) (Auto) 24.6, Monocytes (%) (Auto) 7.2, Eosinophils (%) (Auto) 2.5, Basophils (%) (Auto) 0.2, Neutrophils # (Auto) 7.98, Lymphocytes # (Auto) 3.00, Monocytes # (Auto) 0.88, Eosinophils # (Auto) 0.31, Basophils # (Auto) 0.02 11/30/17 22:30 Test 11/30/17 22:30 11/30/17 22:34 White Blood Count 12.21 K/uL (4.8-10.8) Red Blood Count 5.08 M/uL (4.2-5.4) Hemoglobin 15.0 g/dL (12.0-16.0) Hematocrit 47.0 % (37-47) Mean Corpuscular Volume 92.5 fL (80-100) Mean Corpuscular Hemoglobin 29.5 pg (25-34) Mean Corpuscular Hemoglobin Concent 31.9 g/dl (32-36) Platelet Count 300 K/uL (130-400) Mean Platelet Volume 9.0 fL (7.4-10.4) Neutrophils (%) (Auto) 65.3 % Lymphocytes (%) (Auto) 24.6 % Monocytes (%) (Auto) 7.2 % Eosinophils (%) (Auto) 2.5 % Basophils (%) (Auto) 0.2 % Neutrophils # (Auto) 7.98 K/uL (1.4-6.5) Lymphocytes # (Auto) 3.00 K/uL (1.2-3.4) Monocytes # (Auto) 0.88 K/uL (0.11-0.59) Eosinophils # (Auto) 0.31 K/uL (0-0.5) Basophils # (Auto) 0.02 K/uL (0-0.2) RDW Standard Deviation 48.4 fL (36.4-46.3) RDW Coefficient of Variation 14.2 % (11.5-14.5) Immature Granulocyte % (Auto) 0.2 % Immature Granulocyte # (Auto) 0.02 K/uL (0.00-0.02) Prothrombin Time 10.0 SECONDS (9.0-12.0) Prothromb Time International Ratio 1.0 (0.9-1.1) Estimated GFR () 61.9 Estimated GFR (Non- 53.5 BUN/Creatinine Ratio 15.9 (10-20) Calcium Level 9.2 mg/dl (8.5-10.1) Magnesium Level 2.1 mg/dl (1.8-2.4) Total Bilirubin 0.3 mg/dl (0.2-1) Direct Bilirubin 0.1 mg/dl (0-0.2) Aspartate Amino Transf (AST/SGOT) 17 U/L (15-37) Alanine Aminotransferase (ALT/SGPT) 29 U/L (12-78) Alkaline Phosphatase 147 U/L (45-117) Troponin I < 0.015 ng/ml (0-0.045) Pro-B-Type Natriuretic Peptide 19 pg/ml (0-900) Total Protein 8.5 gm/dl (6.4-8.2) Albumin 3.0 gm/dl (3.4-5.0) Lipase 36 U/L (73-393) Bedside Hemoglobin 16.3 g/dl (12.0-16.0) Bedside Hematocrit 48 % (37-47) Bedside Sodium 140 mEq/L (135-144) Bedside Potassium 4.0 mEq/L (3.3-5.0) Bedside Chloride 100 mEq/L (101-112) Bedside Total CO2 29 mEq/l (24-31) Anion Gap 16.0 mmol/L (16-25) Bedside Blood Urea Nitrogen 19 mg/dl (7-18) Bedside Creatinine 0.9 mg/dl (0.6-1.3) Bedside Glucose (other) 122 mg/dl (70-99) Bedside Ionized Calcium (Dora) 1.18 mmol/l (1.12-1.32) Laboratory results reviewed by me Medications Administered Medications (Trade) Dose Ordered Sig/Miguel Route Start Time Stop Time Status Last Admin Dose Admin Sodium Chloride 500 ml @ 999 mls/hr Q31M STAT IV 11/30/17 22:21 11/30/17 22:51 DC 11/30/17 22:49 999 MLS/HR Methylprednisolone Sodium Succinate (Solu-Medrol IV) 125 mg NOW STAT IV 11/30/17 22:21 11/30/17 22:26 DC 11/30/17 22:48 125 MG Diphenhydramine HCl (Benadryl Inj) 25 mg NOW STAT IV 11/30/17 22:21 11/30/17 22:26 DC 11/30/17 22:48 25 MG Morphine Sulfate (MoRPHine SULFATE INJ) 2 mg NOW STAT IV 11/30/17 22:44 11/30/17 22:46 DC 11/30/17 22:55 2 MG ECG Per My Interpretation Indication: chest pain Rate (beats per minute): 89 Rhythm: normal sinus Findings: no acute ischemic change, other (normal axis) ED Course 2219: The patient was evaluated in room B6. A complete history and physical exam was performed. 2348: I reevaluated the patient. Discussed results and discharge instructions: she verbalized understanding and agreement. The patient is ready for discharge. Medical Decision I reviewed the patient's past medical history, medications, and the nursing notes as described above. Differential diagnosis: Etiologies such as infections, reactive airway disease, pneumonia, pneumothorax , COPD, CHF, cardiac ischemia, pulmonary embolism, musculoskeletal, gastrointestinal, as well as others were entertained. The patient is a 67 y/o woman with a pmhx of KEILY noncompliant with CPAP, DM2, Hypothyroidism, h/o PE, Fibromyalgia who presents to the emergency department for evaluation of elevated D-dimer that was performed 2/2 patient's complain of months of CP and SOB per HPI. On arrival the patient is in NAD, AFVSS. EKG unremarkable. Labs unremarkable including WBC 12, nonspecific. Troponin negative. CT-PE negative for PE per preliminary STATRAD read. Patient denies any new leg pain or swelling and prefers to defer Duplex at this time. Unclear etiology of the patient's longstanding sx however the patient reports she has KEILY and is supposed to wear a CPAP but cannot tolerate it. This certainly may contribute. Plan for pcp and pulm f/u. Findings and plan for follow-up reviewed with patient. Patient agreeable and d/c'd per discharge instructions. Medication Reconcilliation Current Medication List: was personally reviewed by me Blood Pressure Screening Patient's blood pressure: Normal blood pressure Blood pressure disposition: Did not require urgent referral Impression Primary Impression: Shortness of breath Scribe Attestation The scribe's documentation has been prepared under my direction and personally reviewed by me in its entirety. I confirm that the note above accurately reflects all work, treatment, procedures, and medical decision making performed by me. Departure Information Dispostion Home / Self-Care Referrals Aidan Ledbetter M.D. (PCP) Forms HOME CARE DOCUMENTATION FORM, IMPORTANT VISIT INFORMATION, WORK / SCHOOL INSTRUCTIONS Patient Instructions ED Chest Pain Atypical Unkn Cause, ED Dyspnea Shortness of Breath, My [facility] Additional Instructions Please follow up with your primary care physician in the next 1-3 days and your orthotics technician as scheduled for re-evaluation. The cause of your symptoms is unclear a this time, however, your sleep apnea may be contributing given that you have not been using a CPAP. Otherwise, your exam, EKG, chest xray, lab results, and CT scan with contrast did not show signs of an emergent condition at this time. Continue your current medications as prescribed. Return to the emergency department for worsening symptoms as described in the accompanying instructions.
[2017-11-30 23:13] LABS: ALKALINE PHOSPHATASE 147 U/L (45-117); ALT/SGPT 29 U/L (12-78); AST/SGOT 17 U/L (15-37); BLOOD UREA NITROGEN 17 mg/dl (7-18); CALCIUM 9.2 mg/dl (8.5-10.1); CARBON DIOXIDE 30 mmol/L (21-32); CREATININE 1.08 mg/dl (0.60-1.20); GLUCOSE 117 mg/dl (70-99); LIPASE 36 U/L (73-393); POTASSIUM 3.9 mmol/L (3.5-5.1); SODIUM 138 mmol/L (136-145); TOTAL PROTEIN 8.5 gm/dl (6.4-8.2)
[2017-11-30] MEDS ORDERED: OPTIRAY 320 IV PRN (23:30)
[2017-11-30 23:39] VITALS: BP 110/55; PULSE 81; O2SAT 97
--- NOTE | 2017-12-01 07:26 | DIAGNOSTIC IMAGING REPORT ---
(CHEST FOR PE) ANGIO WITH CT DOSE: 719.23 mGy.cm HISTORY: 67 years-old Female with . Presents with acute chest pain and shortness of breath TECHNIQUE: Multiple CTA images of the chest were obtained after the intravenous administration of 105 ml Optiray 320. Coronal and sagittal MIPS were obtained from the axial data set and were submitted for review. A dose lowering technique was utilized adhering to the principles of ALARA. COMPARISON: Chest radiograph of same day, CT chest 10/13/2017 FINDINGS: CTA: Heart is normal in size without pericardial effusion. The thoracic aorta is normal in both course and caliber without aneurysm or dissection. The imaged great vessels appear patent. The pulmonary arterial tree is opacified to the level of the segmental branches. The majority of the contrast bolus is still present within the SVC and brachiocephalic vein on the left at time of imaging. No filling defects are identified to suggest pulmonary thromboembolic disease. CT CHEST: Thyroid goiter without discrete nodule identified. Bilateral nonenlarged mildly prominent indeterminate axillary lymph nodes. No pathologically enlarged lymph nodes of the mediastinum or qing identified. No pneumothorax, pleural effusion or pulmonary edema identified. 2 mm solid nodule the lingula, image 161 series 4 appears unchanged and is likely benign. 4 mm solid nodule of the inferior segment lingula on image 146 series 4 is also unchanged. There are several solid nodule left lower lobe measuring up to 4 mm which are unchanged. Additionally, there are a few unchanged solid nodules about the right lung measuring up to 4 mm. Central airways appear patent. Mild marginal nodularity of the liver may reflect cirrhotic liver disease. No acute process of the imaged upper abdomen. Soft tissues are within normal limits. The bones appear to be intact. Degenerative changes of the shoulders and spine with dextroscoliosis of the thoracic spine. IMPRESSION: 1. No acute aortic pathology or evidence of pulmonary thromboembolic disease. 2. No lobar airspace consolidation to suggest pneumonia. No adenopathy. 3. Multiple solid nodules of the bilateral lungs measuring up to 4 mm appear unchanged from comparison suggesting benign etiology. 4. Thyroid goiter. The above report was generated using voice recognition software. It may contain grammatical, syntax or spelling errors. Electronically signed by: Steve Kendall M.D. 12/01/2017 7:24 AM Dictated Date/Time: 12/01/2017 7:09 AM
== END 2017-11-30 23:57 | disposition home or self-care (01) ==
LOC: C.EDB 21:47
DX: R06.02 Shortness of breath (principal); R07.9 Chest pain, unspecified; R53.1 Weakness; Z79.899 Other long term (current) drug therapy; Z88.1 Allergy status to other antibiotic agents; Z88.8 Allergy status to other drugs, medicaments and biological substances; Z91.040 Latex allergy status; Z91.041 Radiographic dye allergy status; Z86.711 Personal history of pulmonary embolism; Z86.718 Personal history of other venous thrombosis and embolism

== ENCOUNTER 2018-12-05 03:19 | Inpatient (IN) ==
[2018-12-05] MEDS ORDERED: ONDANSETRON 8MG OD TAB PO STA (04:00)
[2018-12-05] MEDS ORDERED: ONDANSETRON 4 MG OD TAB ONE (04:02)
[2018-12-05 04:28] LABS: Basophils # (auto) 0.02 K/uL (0-0.2); Basophils % (auto) 0.1 %; Eosinophils # (auto) 0.16 K/uL (0-0.5); Eosinophils % (auto) 1.1 %; Hematocrit (blood only) 45.9 % (37-47); Hemoglobin 15.2 g/dL (12.0-16.0); Immature Granulocytes # (auto) 0.03 K/uL (0.00-0.02); Immature Granulocytes % (auto) 0.2 %; Lymphocytes # (auto) 3.88 K/uL (1.2-3.4); Lymphocytes % (auto) 27.8 %; Mean Corpuscular Hemoglobin 30.7 pg (25-34); Mean Corpuscular Hgb Conc 33.1 g/dL (32-36); Mean Corpuscular Volume 92.7 fL (80-100); Mean Platelet Volume 8.9 fL (7.4-10.4); Monocytes # (auto) 0.74 K/uL (0.11-0.59); Monocytes % (auto) 5.3 %; Neutrophils # (auto) 9.13 K/uL (1.4-6.5); Neutrophils % (auto) 65.5 %; Platelet Count 250 K/uL (130-400); RDW Coefficient of Variation 14.8 % (11.5-14.5); RDW Standard Deviation 50.1 fL (36.4-46.3); Red Blood Count 4.95 M/uL (4.2-5.4); White Blood Count 13.96 K/uL (4.8-10.8)
[2018-12-05 04:47] LABS: Albumin Level 3.1 gm/dl (3.4-5.0); BUN Creatinine Ratio 17.7 (10-20); Calcium 9.1 mg/dl (8.5-10.1); Creatinine Clr Calc Pharmacy 79.4 ml/min; Est GFR (African American) 79.9; Est GFR (Non-African American) 68.9
[2018-12-05 04:50] LABS: Albumin Globulin Ratio 0.6 (0.9-2); Bilirubin,Total 0.3 mg/dl (0.2-1); Total Protein 8.1 gm/dl (6.4-8.2)
[2018-12-05] MEDS ORDERED: MoRPHine SULFATE 4 MG/ML 1 ML CARP\\VIAL IV STA (05:37)
[2018-12-05] MEDS ORDERED: ONDANSETRON INJ 2 MG/ML 2 ML VIAL IV STA (05:37)
--- NOTE | 2018-12-05 06:43 | History & Physical Report ---
Date of Service December 05, 2018 Assessment & Plan (1) Vomiting: Etiology uncertain. -Zofran as needed for nausea -CT abdomen ordered. Patient reports that she will have a difficult time obtaining this study due to inability to lay flat. We will try to medicate with pain medicines prior to study -KUB Present on Admission?: Yes (2) Abdominal pain, LLQ: CT abdomen as above. KUB. -Check lactate -Continue home morphine 30 mg p.o. every 12 hours -Morphine 1 mg IV every 4 hours as needed -Bentyl and simethicone as needed for abdominal/gas pain Present on Admission?: Yes (3) Palpitations: Patient reports frequent palpitations. EKG normal, electrolytes within normal limits -Continue to monitor -Patient may benefit from outpatient Holter monitor Present on Admission?: Yes (4) CAD (coronary artery disease): Chronic. Patient reports occasional chest pain -Check troponin -Uncertain why she is not on a daily aspirin or beta-hardik -Initiate aspirin 81 mg daily Present on Admission?: Yes (5) Hypertension: Blood pressure well controlled of 129/48 -Continue benazepril -Continue to monitor (6) Hypothyroid: Chronic. -Check TSH -Continue home Synthroid Present on Admission?: Yes (7) Anxiety: Chronic. Patient appears quite anxious presently -Continue home Xanax as needed Present on Admission?: Yes (8) Diabetes: Blood sugar elevated. I do not see any diabetes medications on her home list -Blood sugar checks and sliding scale insulin -Check A1c -Consistent carb diet as tolerated FENLR at 125 mL/h x 2 L, monitor electrolytes and replete as needed, check mag en face x1, heart healthy/consistent carb diet as tolerated Prophylaxis-heparin for DVT Code-full Disposition-admit to medical floor. PT/OT assessment with possible facility placement on discharge Present on Admission?: Yes History of Present Illness Chief Complaint: Abdominal pain, nausea Primary Care Provider: Aidan Ledbetter MD Patient is a 68-year-old female presenting with abdominal pain and vomiting. When asked when symptoms began patient states "I do not know". When asked how many episodes of vomiting she experienced patient states "I do not know". When asked about presence of blood, hematemesis/coffee-ground emesis patient responds "I have no idea". She is complaining of severe cramping abdominal pain. Had one episode of diarrhea prior to coming to the ER. Patient lives at home alone and has a mushroom laborer who is currently unavailable as she is taking care of her family emergency. ER course: Morphine, Zofran Allergies Allergy/AdvReac Type Severity Reaction Status Date / Time adhesive Allergy Severe SKIN Verified 12/05/18 03:54 BLISTERS/RED-AND WITH EKG STICKERS latex Allergy Severe BLISTERS/RED Verified 12/05/18 03:54 SKIN meperidine Allergy Severe CAN NOT Verified 12/05/18 03:54 FUNCTION Bactrim Allergy Unknown THROAT AND Verified 10/26/17 13:37 TONGUE SWELL Cipro Allergy Unknown UNKNOWN Verified 10/26/17 13:37 REACTION ciprofloxacin Allergy Unknown UNKNOWN Verified 12/05/18 03:54 REACTION Iodinated Contrast- Oral and Allergy Unknown REDNESS Verified 12/05/18 03:54 IV Dye AND SWELLING iodine Allergy Unknown Swelling/Red Verified 12/05/18 03:54 Skin-TOPICAL OK sulfamethoxazole Allergy Unknown THROAT AND Verified 10/04/18 18:20 TONGUE SWELL trimethoprim Allergy Unknown THROAT AND Verified 12/05/18 03:54 TONGUE SWELL diazepam AdvReac Severe CAN NOT Verified 10/04/18 18:20 FUNCTION Unclassified Drugs Allergy Unknown ANY Uncoded 10/04/18 18:20 MYCINS-ITCHY THROAT SWELLING Home Medications Home Medications Medication Instructions Recorded Confirmed Type albuterol sulfate [ProAir HFA] 1 puff INHALATION Q6H PRN 02/17/18 12/05/18 History alprazolam [Xanax] 0.5 mg PO DAILY PRN 02/17/18 12/05/18 History benazepril 20 mg PO QAM 02/17/18 12/05/18 History cholecalciferol (vitamin D3) 1,000 unit PO DAILY 02/17/18 12/05/18 History [Vitamin D3] fluticasone propionate [Flonase 1 spray INTRANASAL HS 02/17/18 12/05/18 History Allergy Relief] levothyroxine 200 mcg PO QAM 02/17/18 12/05/18 History acetaminophen [Tylenol 8 Hour] 1,300 mg PO BID 10/04/18 12/05/18 History benazepril 10 mg PO HS PRN 10/04/18 12/05/18 History loratadine-pseudoephedrine 1 tab PO HS 10/04/18 12/05/18 History [Claritin-D 24 Hour] morphine 30 mg PO Q12H 10/04/18 12/05/18 History levothyroxine 50 mcg PO DAILY 12/05/18 12/05/18 History turmeric 0 mg PO DAILY 12/05/18 12/05/18 History Past Med/Surg History Medical History Palpitations (Chronic) Anxiety Bronchitis CPAP (continuous positive airway pressure) dependence Diabetes mellitus, type 2 Elevated d-dimer Hepatitis C Hx of blood clots Hx of cancer of uterus Hx of hysterectomy Hx of sleep apnea Hypertension Hypothyroidism Lump/cyst? 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) don't know if the right twiested kideny functions Social History Preferred Language: Hungarian Communication Ability: Effective Bread Icer Required: No Beliefs That Will Affect Care: Latter-Day L[employer]-Day Beliefs: Mormon marital status: Single Current Living Situation: Alone Feels Safe at Home: Yes Smoking Status: Never smoker Second Hand Exposure: No ; Hx Substance Use: No Review of Systems Review of Systems: Other Patient reports abdominal cramping, diarrhea Also reports increase in palpitations, chest pain and shortness of breath Physical Exam Physical Exam: General: Morbidly obese female in moderate distress secondary to abdominal pain, somewhat uncooperative with questioning and exam Skin: warm, dry, intact, no rashes or lesions, ecchymotic area on posterior thigh HEENT: NC/AT, PERRL, EOMI, anicteric sclera, conjunctiva without injection, external ear normal to inspection and nontender, nares patent, dry mucus membranes, dentition intact, no oropharyngeal lesions, neck supple, trachea midline, no LAD, no thyromegaly, no JVD Heart: +S1/S2, regular, no m/r/g, exam limited secondary to body habitus Lungs: equal air entry bilaterally, no rales/rhonchi/wheezes, exam limited secondary to body habitus Abd: +BS, diminished, soft, diffusely tender with voluntary guarding, nondistended, no masses/organomegaly/ascites, exam limited secondary to body habitus Ext: warm, 2+ pulses in UE/LE bilaterally, no clubbing/cyanosis or edema, chronic venous stasis changes in bilateral lower extremities Neuro: Grossly nonfocal, patient moving all extremities, diffusely weak- requiring quite a bit of assistance to roll onto bedpan Results & Data Vital Signs (Past 12 Hours) Vital Signs Temp Pulse Pulse Resp BP BP Pulse Ox 12/05/18 06:27 78 18 129/48 L 97 12/05/18 04:52 71 18 160/83 H 98 12/05/18 04:08 95 12/05/18 03:28 36.5 C 78 16 149/82 H 96 Laboratory Results Lab Results 12/05/18 12/05/18 Range/Units 04:14 04:14 WBC 13.96 H (4.8-10.8) K/uL RBC 4.95 (4.2-5.4) M/uL Hgb 15.2 (12.0-16.0) g/dL Hct 45.9 (37-47) % MCV 92.7 (80-100) fL MCH 30.7 (25-34) pg MCHC 33.1 (32-36) g/dL RDW Std Deviation 50.1 H (36.4-46.3) fL RDW Coeff of Elizabeth 14.8 H (11.5-14.5) % Plt Count 250 (130-400) K/uL MPV 8.9 (7.4-10.4) fL Immature Gran % (Auto) 0.2 % Neut % (Auto) 65.5 % Lymph % (Auto) 27.8 % [place] % (Auto) 5.3 % Eos % (Auto) 1.1 % Baso % (Auto) 0.1 % Immature Gran # (Auto) 0.03 H (0.00-0.02) K/uL Neut # (Auto) 9.13 H (1.4-6.5) K/uL Lymph # (Auto) 3.88 H (1.2-3.4) K/uL [place] # (Auto) 0.74 H (0.11-0.59) K/uL Eos # (Auto) 0.16 (0-0.5) K/uL Baso # (Auto) 0.02 (0-0.2) K/uL Sodium 138 (136-145) mmol/L Potassium 4.0 (3.5-5.1) mmol/L Chloride 105 (98-107) mmol/L Carbon Dioxide 26 (21-32) mmol/L Anion Gap 7.0 (3-11) BUN 15 (7-18) mg/dl Creatinine 0.87 (0.6-1.2) mg/dl Est Cr Clr Drug Dosing 79.4 ml/min Est GFR ( Amer) 79.9 Est GFR (Non-Af Amer) 68.9 BUN/Creatinine Ratio 17.7 (10-20) Glucose 222 H (70-99) mg/dl Calcium 9.1 (8.5-10.1) mg/dl Total Bilirubin 0.3 (0.2-1) mg/dl AST 16 (15-37) U/L ALT 18 (12-78) U/L Alkaline Phosphatase 137 H (45-117) U/L Total Protein 8.1 (6.4-8.2) gm/dl Albumin 3.1 L (3.4-5.0) gm/dl Globulin 5.0 H (2.5-4.0) gm/dl Albumin/Globulin Ratio 0.6 L (0.9-2) Lipase 23 L (73-393) U/L ECG Additional Comments: Study shows normal sinus rhythm at 79 bpm leftward axis, RI = 168, QRS = 80, QTC = 479. No evidence of acute ischemia. QT lengthened from prior study Code Status & VTE Plan Code Status Full VTE Prophylaxis Plan VTE Prophylaxis will be ordered: Yes PG Care Time/CCT Total # of Minutes Spent Total Time Spent with Patient: Total time spent is greater than 50% in coordination of care (as documented) at patient's floor/unit and/or counseling patient: (1) Vomiting Nausea presence: with nausea Vomiting Intractability: intractable Vomiting type: unspecified Qualified Code(s): R11.2 - Nausea with vomiting, unspecified (2) CAD (coronary artery disease) Coronary Disease-Associated Artery/Lesion type: [place] artery [place] vs. transplanted heart: [place] heart Associated angina: without angina Qualified Code(s): I25.10 - Atherosclerotic heart disease of [place] coronary artery without angina pectoris (3) Hypertension Hypertension type: essential hypertension Qualified Code(s): I10 - Essential (primary) hypertension (4) Hypothyroid Hypothyroidism type: unspecified Qualified Code(s): E03.9 - Hypothyroidism, unspecified (5) Diabetes Diabetes mellitus type: type 2 Diabetes mellitus fpc insulin use: without fpc use Diabetes mellitus complication status: without complication Qualified Code(s): E11.9 - Type 2 diabetes mellitus without complications
[2018-12-05] MEDS ORDERED: GLUCOSE 40% GEL 15 GM TUBE PO PRN (08:11)
[2018-12-05] MEDS ORDERED: GLUCOSE 10 TABS/TUBE PO PRN (08:11)
[2018-12-05] MEDS ORDERED: CARBOHYDRATES FOR HYPOGLYCEMIA PO PRN (08:11)
[2018-12-05] MEDS ORDERED: GLUCAGON FOR INJ 1 MG VIAL SQ PRN (08:11)
[2018-12-05] MEDS ORDERED: DEXTROSE 50% 50 ML SYRINGE IV PRN (08:11)
[2018-12-05] MEDS ORDERED: DOCUSATE SODIUM 100 MG CAP PO PRN (08:11)
[2018-12-05] MEDS ORDERED: ALBUTEROL HFA 8 GM INHALER INH PRN (08:11)
[2018-12-05] MEDS: LACTATED RINGER'S 1,000 ML IV SCH ×2 (08:50→15:55)
[2018-12-05] MEDS: MoRPHine SULFATE CR 15 MG TABCR PO SCH ×2 (09:04→21:05)
[2018-12-05] MEDS: ACETAMINOPHEN 325 MG TAB PO PRN (09:07)
[2018-12-05 09:17] LABS: Magnesium 2.5 mg/dl (1.8-2.4); Phosphorus 3.9 mg/dl (2.5-4.9); Thyroid Stimulating Hormone 0.224 uIu/ml (0.300-4.500); Troponin I < 0.015 ng/ml (0-0.045)
[2018-12-05 09:27] LABS: Prothrombin Time 10.1 Seconds (9.0-12.0)
[2018-12-05] MEDS: ASPIRIN 81 MG ECTAB PO SCH (09:47)
[2018-12-05] MEDS: SIMETHICONE 80 MG CHEW PO PRN (09:47)
[2018-12-05] MEDS: DICYCLOMINE HCL 10 MG CAP PO SCH ×4 (09:48→21:10)
[2018-12-05] MEDS: LEVOTHYROXINE SODIUM 200 MCG TABLET PO SCH (09:48)
[2018-12-05] MEDS: ENALAPRIL MALEATE 10 MG TAB PO SCH (09:49)
[2018-12-05] MEDS: CHOLECALCIFEROL 1,000 UNITS TAB PO SCH (09:49)
[2018-12-05] MEDS: LEVOTHYROXINE SODIUM 50 MCG TABLET PO SCH (09:49)
[2018-12-05] MEDS: INSULIN ASPART 100 UNITS/ML 3 ML PEN SC SCH ×4 (09:50→21:40)
[2018-12-05] MEDS ORDERED: ACETAMINOPHEN 500 MG TAB PO SCH (11:00)
[2018-12-05] MEDS: MoRPHine SULFATE 2 MG/ML CARP IV PRN ×2 (11:56→16:02)
[2018-12-05] MEDS: HEPARIN SOD 5,000 UNIT/0.5 ML VIAL SQ SCH ×2 (13:09→21:12)
[2018-12-05] MEDS: ONDANSETRON INJ 2 MG/ML 2 ML VIAL IV PRN (15:48)
--- NOTE | 2018-12-05 15:52 | Emergency Department Note ---
Entered by Shell Person acting as a scribe for Corinne Mckeon DO History of Present Illness General Chief complaint: Illness Stated complaint: pain all over, nauseated Time Seen by Provider: 12/05/18 03:42 Source: patient History of Present Illness Onset (ago): hour(s) 2 Location: abdomen (illness) Severity: similar to prior episodes (food poisoning) Pain Consistency: + other (worsening) Maximum Pain Intensity: 7 Associated symptoms: + denies other symptoms (diarrhea), + chest pain, + nausea/vomiting (positive nausea, dry heaving), + weakness and + other (cold sweats, abdominal pain, back pain) The patient is a 68 year old F who presents to the Emergency Room with complai nts of a worsening illness that occurred 2 hours ago. The patient states that she had some chicken to eat tonight. She adds that the chicken was in the freezer and she cooked it in the microwave. She notes that the chicken may have given her food poisoning. She adds that she has had food poisoning in the past and her current symptoms feel similar to her prior episodes. She states that she is currently experiencing cold sweats, dry heaving, nausea, dizziness, abdominal pain, weakness, and back pain. She denies that she is currently experiencing diarrhea. She also denies a history of abdominal surgeries. She notes that she has a history of fibromyalgia, borderline diabetes, palpitations and HTN. She adds that she lives by herself and uses a walker to get around. She notes that she normally takes morphine for pain but today decided to take less than her prescribed dosage of 30 mg. She typically has a coal trimmer that works with her but states that that coal trimmer is not available at this time due to the of her own grandmother. She explains that the back pain is a chronic issue for her and that is which she takes the morphine for. Home Medications Home Medications Medication Instructions Recorded Confirmed Type albuterol sulfate [ProAir HFA] 1 puff INHALATION Q6H PRN 02/17/18 12/05/18 History alprazolam [Xanax] 0.5 mg PO DAILY PRN 02/17/18 12/05/18 History benazepril 20 mg PO QAM 02/17/18 12/05/18 History cholecalciferol (vitamin D3) 1,000 unit PO DAILY 02/17/18 12/05/18 History [Vitamin D3] fluticasone propionate [Flonase 1 spray INTRANASAL HS 02/17/18 12/05/18 History Allergy Relief] levothyroxine 200 mcg PO QAM 02/17/18 12/05/18 History acetaminophen [Tylenol 8 Hour] 1,300 mg PO BID 10/04/18 12/05/18 History benazepril 10 mg PO HS PRN 10/04/18 12/05/18 History loratadine-pseudoephedrine 1 tab PO HS 10/04/18 12/05/18 History [Claritin-D 24 Hour] morphine 30 mg PO Q12H 10/04/18 12/05/18 History levothyroxine 50 mcg PO DAILY 12/05/18 12/05/18 History turmeric 0 mg PO DAILY 12/05/18 12/05/18 History Allergies Allergy/AdvReac Type Severity Reaction Status Date / Time adhesive Allergy Severe SKIN Verified 12/05/18 03:54 BLISTERS/RED-AND WITH EKG STICKERS latex Allergy Severe BLISTERS/RED Verified 12/05/18 03:54 SKIN meperidine Allergy Severe CAN NOT Verified 12/05/18 03:54 FUNCTION Bactrim Allergy Unknown THROAT AND Verified 10/26/17 13:37 TONGUE SWELL Cipro Allergy Unknown UNKNOWN Verified 10/26/17 13:37 REACTION ciprofloxacin Allergy Unknown UNKNOWN Verified 12/05/18 03:54 REACTION Iodinated Contrast- Oral and Allergy Unknown REDNESS Verified 12/05/18 03:54 IV Dye AND SWELLING iodine Allergy Unknown Swelling/Red Verified 12/05/18 03:54 Skin-TOPICAL OK sulfamethoxazole Allergy Unknown THROAT AND Verified 10/04/18 18:20 TONGUE SWELL trimethoprim Allergy Unknown THROAT AND Verified 12/05/18 03:54 TONGUE SWELL diazepam AdvReac Severe CAN NOT Verified 10/04/18 18:20 FUNCTION Unclassified Drugs Allergy Unknown ANY Uncoded 10/04/18 18:20 MYCINS-ITCHY THROAT SWELLING Past Med/Surg History Medical History Palpitations (Chronic) Anxiety Bronchitis CPAP (continuous positive airway pressure) dependence Diabetes mellitus, type 2 Elevated d-dimer Hepatitis C Hx of blood clots Hx of cancer of uterus Hx of hysterectomy Hx of sleep apnea Hypertension Hypothyroidism Lump/cyst? 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 and A total of 10 systems reviewed and were otherwise negative Physical Exam Vital Signs Vital Signs - 24 hr 12/05/18 03:28 12/05/18 04:08 12/05/18 04:52 Temperature 36.5 C Temperature Source Oral Sepsis Recent Fever Within 48 Hours No Sepsis Action Taken by Nursing No Action Required Pulse Rate 78 Pulse Rate [Right Finger] 71 Pulse Rhythm Regular Pulse Rhythm [Right Finger] Regular Pulse Strength Normal Pulse Strength [Right Finger] Normal Respiratory Rate 16 18 Respiratory Effort / Characteristics Non-Labored Spontaneous Non-Labored Spontaneous Respiratory Depth Normal Normal Respiratory Pattern Regular Blood Pressure 149/82 H Blood Pressure [Right Arm] 160/83 H Blood Pressure Mean 104 Blood Pressure Mean [Right Arm] 108 Blood Pressure Position Sitting Pulse Oximetry 96 95 98 Oxygen Delivery Method Room Air Room Air Room Air 12/05/18 06:27 Temperature Temperature Source Sepsis Recent Fever Within 48 Hours Sepsis Action Taken by Nursing Pulse Rate Pulse Rate [Right Finger] 78 Pulse Rhythm Pulse Rhythm [Right Finger] Regular Pulse Strength Pulse Strength [Right Finger] Normal Respiratory Rate 18 Respiratory Effort / Characteristics Non-Labored Spontaneous Respiratory Depth Normal Respiratory Pattern Blood Pressure Blood Pressure [Right Arm] 129/48 L Blood Pressure Mean Blood Pressure Mean [Right Arm] 75 Blood Pressure Position Pulse Oximetry 97 Oxygen Delivery Method General: The patient is obese, appears uncomfortable, weak at times and unable to answer simple questions. HEENT: Head - normocephalic and atraumatic Pupils are equal, round, and reactive to light. Extraocular eye muscles are intact, and sclera are anicteric. Nose - moist nasal mucosa without discharge. Mouth - moist buccal mucosa. Oropharynx is nonerythematous and there is no tonsillar exudate or edema noted. Neck: Supple; no cervical lymphadenopathy Heart: Regular rate and rhythm. There is a normal S1 and S2 with no murmurs, clicks, or gallops appreciated. Lungs: Clear to auscultation bilaterally with no wheezes, rales, or rhonchi. Abdomen: Soft, pain with palpation of the LLQ, nondistended, with good bowel sounds. There are no palpable pulsatile masses or hepatosplenomegaly. There is no guarding, rigidity, or rebound noted. Extremities: No evidence of cyanosis, clubbing, or edema. There are easily palpable peripheral pulses. Skin: warm and dry with good turgor and no rashes. Course 0350: The patient was evaluated in room B4B. A complete history and physical exam was performed. This history taking and physical exam were quite difficult to perform as the patient was not willing to answer many questions because she described feeling so weak. Up to the point of my evaluation, the patient had only had dry heaving and nausea. After labs were obtained and IV was initiated, the patient did develop vomiting but never did have diarrhea. 0401: Ondansetron HCl (Zofran Odt) 8 mg PO administered until an IV could be obtained. 0530: I spent a great deal of time with the patient. I offered to give the patient pain medications to facilitate laying down for a CT scan of her abdomen and to get catheterized urine sample which the patient refuses. The patient states that there is no way that she can go home, because her caregiver is not available. The patient told me about an area of ecchymosis on the back of her left leg. The back of the patients left leg in appears engorged varicose veins, blanchable, and non-tender to palpation. The patient states that she has seen 4 different physicians about the black and blue stephanie on her leg but nobody could tell her what it was. The patient notes that she plans to drive herself to the ER located in [place], [place] and have it checked out by a vascular surgeon. The patient describes being cold, weak, dizzy, and unable to go home. She adds that she had further vomiting in the ED. The patient is requesting pain medication for her back and belly. When I asked the patient why she took half the dose of her morphine earlier today, she stated that she does not always have severe pain and will at times regulate her dosage. 0538: Morphine-4 mg IV and Zofran 4 mg IV 0548: The porter sample case and charge nurse were made aware of the situation and are going to talk with the patient to recommend and encourage her to comply with the recommended testing. Patient is still refusing a CT scan stating that she cannot lie flat even after having the IV morphine and that she will not have a catheterized urine specimen. The patient is willing to go to a detention for assistance. However because of her Medicare insurance, she cannot go directly there. I will talk to the inpatient doctors 0620: I reviewed the patient's case with Dr. Nikki Arevalo, [facility] Hospitalist. She will evaluate the patient for further management. Consultations Consultation #1: 0620: I reviewed the patient's case with Dr. Nikki Arevalo, [facility] Hospitalist. She will evaluate the patient for further management. Time: 06:20 Administered Medications Acetaminophen (Tylenol) 1,000 mg PO BID@1100,2200 [facility] Stop: 01/04/19 10:59 Last Admin: 12/05/18 11:57 Dose: 1,000 mg Documented by: [id number] Acetaminophen (Tylenol) 650 mg PO Q4H PRN PRN Reason: pain/fever Stop: 01/04/19 08:10 Last Admin: 12/05/18 09:07 Dose: 650 mg Documented by: [id number] Aspirin (Ecotrin Ectab) 81 mg PO DAILY [facility] Stop: 01/04/19 08:59 Last Admin: 12/05/18 09:47 Dose: 81 mg Documented by: [id number] Dicyclomine HCl (Bentyl) 10 mg PO QID [facility] Stop: 01/04/19 08:59 Last Admin: 12/05/18 13:00 Dose: Not Given Documented by: [id number] Admin: 12/05/18 09:48 Dose: 10 mg Documented by: [id number] Enalapril Maleate (Vasotec) 20 mg PO QAM [facility] Stop: 01/04/19 08:59 Last Admin: 12/05/18 09:49 Dose: 20 mg Documented by: [id number] Heparin Sodium (Porcine) (Heparin Sodium (Porcine)) 5,000 units SQ Q8 [facility] Stop: 01/04/19 13:59 Last Admin: 12/05/18 13:09 Dose: 5,000 units Documented by: [id number] Cosigned by: [id number] Lactated Ringer's (Lr) 1,000 mls @ 125 mls/hr IV .Q8H [facility] Stop: 12/06/18 00:44 Last Admin: 12/05/18 08:50 Dose: 125 mls/hr Documented by: [id number] Insulin Aspart (Novolog Flexpen) 0 units SC ACHS [facility] Stop: 01/04/19 08:10 Last Admin: 12/05/18 13:08 Dose: Not Given Documented by: [id number] Cosigned by: [id number] Admin: 12/05/18 09:50 Dose: Not Given Documented by: [id number] Cosigned by: [id number] Levothyroxine Sodium (Synthroid) 200 mcg PO DAILYBB [facility] Stop: 01/04/19 08:59 Last Admin: 12/05/18 09:48 Dose: 200 mcg Documented by: [id number] Levothyroxine Sodium (Synthroid) 50 mcg PO DAILYBB [facility] Stop: 01/04/19 08:59 Last Admin: 12/05/18 09:49 Dose: 50 mcg Documented by: [id number] Morphine Sulfate (Morphine Sulfate) 1 mg IV Q4H PRN PRN Reason: Pain Stop: 12/19/18 08:10 Last Admin: 12/05/18 11:56 Dose: 1 mg Documented by: [id number] Morphine Sulfate (Ms Contin) 30 mg PO Q12 [facility] Stop: 12/19/18 08:10 Last Admin: 12/05/18 09:04 Dose: 30 mg Documented by: [id number] Ondansetron HCl (Zofran) 4 mg IV Q6H PRN PRN Reason: Nausea Stop: 01/04/19 08:10 Last Admin: 12/05/18 15:48 Dose: 4 mg Documented by: [id number] Simethicone (Mylicon) 80 mg PO Q6H PRN PRN Reason: gas pain Stop: 01/04/19 08:10 Last Admin: 12/05/18 09:47 Dose: 80 mg Documented by: [id number] Vitamin D (Vitamin D3) 1,000 units PO DAILY [facility] Stop: 01/04/19 08:59 Last Admin: 12/05/18 09:49 Dose: 1,000 units Documented by: [id number] Discontinued Medications Morphine Sulfate (Morphine Sulfate) 4 mg IV NOW STA Stop: 12/05/18 05:38 Last Admin: 12/05/18 05:48 Dose: 4 mg Documented by: [id number] Ondansetron HCl (Zofran Odt) 8 mg PO NOW STA Stop: 12/05/18 04:01 Last Admin: 12/05/18 04:07 Dose: 8 mg Documented by: [id number] Ondansetron HCl (Zofran Odt) Confirm Administered Dose 8 mg .ROUTE .STK-MED ONE Stop: 12/05/18 04:03 Last Admin: 12/05/18 04:07 Dose: Not Given Documented by: [id number] Ondansetron HCl (Zofran) 4 mg IV NOW STA Stop: 12/05/18 05:38 Last Admin: 12/05/18 05:49 Dose: 4 mg Documented by: [id number] Medical Decision Making Differential Diagnosis Differential diagnosis includes: food borne illness, viral illness, diverticulitis, anxiety, opioid withdrawal Medical Records Attestation: I reviewed the patient's medical records. Home Medications Current Medication List: was personally reviewed by me Laboratory Data Attestation: I reviewed the patient's lab results. Result diagrams: 12/05/18 04:14 12/05/18 04:14 Lab Results 12/05/18 12/05/18 12/05/18 Range/Units 04:14 04:14 04:19 WBC 13.96 H (4.8-10.8) K/uL RBC 4.95 (4.2-5.4) M/uL Hgb 15.2 (12.0-16.0) g/dL Hct 45.9 (37-47) % MCV 92.7 (80-100) fL MCH 30.7 (25-34) pg MCHC 33.1 (32-36) g/dL RDW Std Deviation 50.1 H (36.4-46.3) fL RDW Coeff of Elizabeth 14.8 H (11.5-14.5) % Plt Count 250 (130-400) K/uL MPV 8.9 (7.4-10.4) fL Immature Gran % (Auto) 0.2 % Neut % (Auto) 65.5 % Lymph % (Auto) 27.8 % [place] % (Auto) 5.3 % Eos % (Auto) 1.1 % Baso % (Auto) 0.1 % Immature Gran # (Auto) 0.03 H (0.00-0.02) K/uL Neut # (Auto) 9.13 H (1.4-6.5) K/uL Lymph # (Auto) 3.88 H (1.2-3.4) K/uL [place] # (Auto) 0.74 H (0.11-0.59) K/uL Eos # (Auto) 0.16 (0-0.5) K/uL Baso # (Auto) 0.02 (0-0.2) K/uL PT 10.1 (9.0-12.0) Seconds INR 1.0 (0.9-1.1) Sodium 138 (136-145) mmol/L Potassium 4.0 (3.5-5.1) mmol/L Chloride 105 (98-107) mmol/L Carbon Dioxide 26 (21-32) mmol/L Anion Gap 7.0 (3-11) BUN 15 (7-18) mg/dl Creatinine 0.87 (0.6-1.2) mg/dl Est Cr Clr Drug Dosing 79.4 ml/min Est GFR ( Amer) 79.9 Est GFR (Non-Af Amer) 68.9 BUN/Creatinine Ratio 17.7 (10-20) Glucose 222 H (70-99) mg/dl Calcium 9.1 (8.5-10.1) mg/dl Total Bilirubin 0.3 (0.2-1) mg/dl AST 16 (15-37) U/L ALT 18 (12-78) U/L Alkaline Phosphatase 137 H (45-117) U/L Total Protein 8.1 (6.4-8.2) gm/dl Albumin 3.1 L (3.4-5.0) gm/dl Globulin 5.0 H (2.5-4.0) gm/dl Albumin/Globulin Ratio 0.6 L (0.9-2) Lipase 23 L (73-393) U/L Prescription Drug Monitoring [place] Drug Monitoring Program reviewed and findings noted below Blood Pressure Blood Pressure Findings: Elevated blood pressure Blood Pressure Disposition: further management by hospitalist KAM Narrative The patient is a 68 year old F who presents to the Emergency Room with complaints of a worsening illness that occurred 2 hours ago. The patient developed significant nausea, weakness dizziness and abdominal pain after eating some frozen chicken that was microwaved. The patient believes that she has food poisoning as she has had this in the past and presents with similar symptoms. On physical exam, the patient does appear to be weak and unable to hold herself up. She is also unwilling questions. On physical, she does have significant reproducible abdominal pain, specifically in the left lower quadrant of the abdomen. I recommended that we get a CT scan of the abdomen/pelvis to rule out diverticulitis or other etiologies of this abdominal pain. The patient adamantly refused to have the CT scan performed. She continued to request medication for the nausea as well as IV pain medication for her back and abdominal pain. The patient continued to vomit despite receiving antiemetics. An EKG was performed which was unremarkable. Laboratory studies revealed a mildly elevated white blood cell count and significant hyperglycemia. The patient had a negative troponin. I discussed the case with the [facility]ist they will evaluate for further management. Impression & Plan Vomiting, Hyperglycemia, Abdominal pain, LLQ Discharge Plan Visit Data *Final* Discharge Date/Time: 12/05/18 07:55 Chief Complaint: Illness Stated Complaint: pain all over, nauseated ED Provider: Corinne Mckeon Discharge Problem: Vomiting, Hyperglycemia, Abdominal pain, LLQ Patient Disposition: Admitted As Inpatient Discharge Instructions Interventions: ED Discharge Assessment Last Done: 12/05/18 07:55 Discharge Problem: Vomiting Qualifiers: Vomiting type: unspecified Vomiting Intractability: intractable Nausea presence: with nausea Qualified Code(s): R11.2 - Nausea with vomiting, unspecified The scribe's documentation has been prepared under my direction and personally reviewed by me in its entirety. I confirm that the note above accurately reflects all work, treatment, procedures, and medical decision making performed by me.
--- NOTE | 2018-12-05 16:43 | Family Medicine Progress Note ---
Date of Service December 05, 2018 Assessment & Plan (1) Diabetes: Ms. Jose is a 68 year old morbidly obese woman with baseline chronic back pain on morphine at home here for a several hour history of diarrhea and nausea/vomiting. N/V/D and abdominal pain Patient with N/V/D since yesterday. Had dorman double cheeseburger from [employer] for lunch developed generalized mild abdominal pain and severe nausea and diarrhea. She is feeling better from this standpoint today, not having any vomiting but still having profuse diarrhea of which she is incontinent Likely food poisoning, abdomen is soft and very mildly tender globally, no focal pain no severe pain vital signs and labwork stable with a mildly elevated white count. Will treat supportively with LR at 125 for rehydration and zofran for nausea. Back Pain Continuing morphine, not effective for ms. Jose at the moment Will try lidocaine patch over lumbo-sacral area where pain is concentrated. Failure to Thrive Patient tells me she lives alone and has difficulty getting around due to her back pain Will have PT/OT evaluate her and make sure she is safe to discharge home. F/E/N: LR 125 Diabetic diet DVT PPx: lovenox Dispo: Med surg (2) Anxiety: (3) Hypertension: (4) Vomiting: Supervising Physician Co-Signing Physician Notes I personally examined the patient and verified all jasmine points of history and exam, discussed case, and agree with decision making with Dr Puri. seen in f/u from early am admission. no further vomiting, does have nausea. ongoing diarrhea. no blood. Abdomen soft mild distention diffuse tenderness no guarding or rebound or rigidity. Nausea vomiting diarrheamost likely an infectious enteritis, possibly food poisoning mediated from her [employer] burger. No indication for antibiotics at this time. She declined imaging, but given her abdominal exam and overall presentation consistent with a food poisoning/infectious enteritis situation, serial exams and labs are reasonable. We discussed if she deteriorates/declines we may need to consider reimaging, but that we would try to medicate her to allow her to lay flat if that was necessary. Low back pain/fibromyalgia flarewe discussed that frequently with inflammatory/infectious illnesses processes such as fibromyalgia will often flareup. We will adjust her pain regimen to try to help her a better relief while she is here. Subjective Ms. Jose is very uncomfortable in bed today, requesting to sit up but also uncomfortable in her chair. No vomiting all day today, diarrhea every few hours. No kathryn blood, no melena Review of Systems Review of Systems: See today's H and P Physical Exam Physical Exam: See today's H and P Results & Data Vital Signs (Past 12 Hours) Vital Signs Temp Pulse Resp BP BP Pulse Ox 12/05/18 15:10 36.7 C 88 20 117/59 L 96 12/05/18 08:00 36.3 C L 78 18 161/80 H 96 12/05/18 07:33 76 20 146/74 H 96 12/05/18 06:27 78 18 129/48 L 97 12/05/18 04:52 71 18 160/83 H 98 PG Care Time/CCT Total # of Minutes Spent Total Time Spent with Patient: Total time spent is greater than 50% in coordination of care (as documented) at patient's floor/unit and/or counseling patient: Resident Activity Tracking Resident Involvement: Resident Care Provided Care Provided: Adult Hospital Medicine (1) Diabetes Diabetes mellitus complication status: without complication Diabetes mellitus exterminator helper insulin use: without care home use Diabetes mellitus type: type 2 Qualified Code(s): E11.9 - Type 2 diabetes mellitus without complications (2) Hypertension Hypertension type: essential hypertension Qualified Code(s): I10 - Essential (primary) hypertension (3) Vomiting Nausea presence: with nausea Vomiting Intractability: intractable Vomiting type: unspecified Qualified Code(s): R11.2 - Nausea with vomiting, unspecified
[2018-12-05] MEDS: ALPRAZolam 0.5 MG TABLET PO PRN (18:01)
[2018-12-05] MEDS: LORATADINE/PSEUDOEPHEDRINE 1 TABCR PO SCH (21:10)
[2018-12-05] MEDS: LIDOCAINE 5% 1 PATCH TD SCH (21:11)
[2018-12-05] MEDS: ACETAMINOPHEN 325 MG TAB PO SCH (21:11)
[2018-12-05] MEDS: FLUTICASONE PROPIONATE NA SPR 16 GM BTL SCH (21:11)
[2018-12-06] MEDS: MoRPHine SULFATE 2 MG/ML CARP IV PRN ×2 (00:25→04:28)
[2018-12-06] MEDS: HEPARIN SOD 5,000 UNIT/0.5 ML VIAL SQ SCH ×3 (05:44→21:19)
[2018-12-06] MEDS: LEVOTHYROXINE SODIUM 50 MCG TABLET PO SCH (05:44)
[2018-12-06] MEDS: LEVOTHYROXINE SODIUM 200 MCG TABLET PO SCH (05:44)
[2018-12-06 06:36] LABS: Hematocrit (blood only) 48.4 % (37-47); Hemoglobin 15.7 g/dL (12.0-16.0); Mean Corpuscular Hemoglobin 29.7 pg (25-34); Mean Corpuscular Hgb Conc 32.4 g/dL (32-36); Mean Corpuscular Volume 91.7 fL (80-100); Mean Platelet Volume 9.1 fL (7.4-10.4); Platelet Count 253 K/uL (130-400); RDW Standard Deviation 50.8 fL (36.4-46.3); Red Blood Count 5.28 M/uL (4.2-5.4); White Blood Count 25.04 K/uL (4.8-10.8)
[2018-12-06 06:48] LABS: BUN Creatinine Ratio 12.5 (10-20); Calcium 8.9 mg/dl (8.5-10.1); Creatinine Clr Calc Pharmacy 84.2 ml/min; Est GFR (African American) 85.8; Potassium 3.9 mmol/L (3.5-5.1)
[2018-12-06 07:21] LABS: Estimated Average Glucose 137 mg/dl; Hemoglobin A1C 6.4 % (4.5-5.6)
[2018-12-06] MEDS ORDERED: PNEUMOCOCCAL POLYSACCHARIDES 25 MCG/0.5 ML VIAL/SYR IM ONE (08:00)
[2018-12-06] MEDS ORDERED: PNEUMOCOCCAL ADMINISTRATION CHARGE ONE (08:00)
[2018-12-06] MEDS: CHOLECALCIFEROL 1,000 UNITS TAB PO SCH (08:09)
[2018-12-06] MEDS: DICYCLOMINE HCL 10 MG CAP PO SCH ×4 (08:10→21:07)
[2018-12-06] MEDS: ENALAPRIL MALEATE 10 MG TAB PO SCH (08:10)
[2018-12-06] MEDS: ASPIRIN 81 MG ECTAB PO SCH (08:10)
[2018-12-06] MEDS: LIDOCAINE 5% 1 PATCH TD SCH (08:11)
[2018-12-06] MEDS: ACETAMINOPHEN 325 MG TAB PO SCH ×3 (08:11→21:08)
[2018-12-06] MEDS: MoRPHine SULFATE CR 15 MG TABCR PO SCH ×2 (08:14→21:10)
[2018-12-06] MEDS: ALPRAZolam 0.5 MG TABLET PO PRN ×2 (08:21→21:18)
--- NOTE | 2018-12-06 09:04 | XRay Report ---
XR KUB/Abdomen 1 view CLINICAL HISTORY: 68 years-old Female presenting with abdominal pain, distention, leukocytosis. TECHNIQUE: Single supine view of the abdomen was obtained. COMPARISON: None. FINDINGS: Image quality is limited by portable technique and body habitus. This moderately limits diagnostic se nsitivity the exam. Nonobstructive bowel gas pattern. Paucity of small bowel gas, nonspecific. No gross pneumoperitoneum. Allowing for bowel gas and stool, no calcifications to suggest nephrolithiasis. Degenerative changes of the spine. Minimal basilar opacities. No pleural effusion or pneumothorax. IMPRESSION: Image quality is limited by portable technique and body habitus. This moderately limits diagnostic se nsitivity the exam. 1. Paucity of small bowel gas, nonspecific. No gross bowel obstruction. 2. Minimal bibasilar atelectasis. Electronically signed by: Jose Combs M.D. 12/06/2018 9:03 AM
[2018-12-06] MEDS: INSULIN ASPART 100 UNITS/ML 3 ML PEN SC SCH ×4 (09:16→21:20)
[2018-12-06] MEDS ORDERED: MoRPHine SULFATE 4 MG/ML 1 ML CARP\\VIAL IV ONE (12:55)
[2018-12-06] MEDS: SODIUM CHLORIDE 0.9% 1000ML 1,000 ML IV SCH ×2 (13:47→23:18)
--- NOTE | 2018-12-06 14:50 | Family Medicine Progress Note ---
Date of Service December 06, 2018 Assessment & Plan (1) Vomiting: Ms. Jose is a 68 year old morbidly obese woman with baseline chronic back pain on morphine at home with diffuse abdominal pain N/V/D and abdominal pain -Pt presented with gastroenteritis picture, N/V/D after having a cheeseburger. -Abdomen with tenderness and guarding, suprapubic included. -WBC elevated with tachycardia this AM -Decreased urinary output overnight; frank placed and UA done. -UA unremarkable -CT Abdomen ordered 12/06; pt given 4mg IV x2 to help with sedation to get it done. -will start on ceftriaxone and flagyl given inc WBC and tachycardia fo empiric GI bug coverage (pt allergic to ciprofloxacin). -cont NSS @ 125 for rehydration and zofran for nausea. Back Pain -Continuing morphine, lidocaine patch -will continue to monitor Failure to Thrive -Patient lives alone; limited ambulation due to back pain -PT/OT-appreciate recs F/E/N: LR 125 Diabetic diet DVT PPx: lovenox Dispo: Med surg Supervising Physician Co-Signing Physician Notes I personally examined the patient and verified all jasmine points of history and exam, discussed case, and agree with decision making with Dr Jimenez. Had a rough night, abdominal pain, back pain, and anxiety. Belly still hurts, some diarrhea. No nausea or vomiting. Back pain still hurts as well. Vitals noted, in general she is awake and alert, anxious somewhat fatigued appearing but brighter than yesterday. HEENT normocephalic atraumatic mucous membranes moist. Breathing unlabored no accessory muscle use good effort. Abdomen is more distended and more tender than yesterday, with a degree of what seems to be voluntary guarding, and no stiff rigidity, but definitely a more tender and more distended exam than before. Nausea vomiting diarrheamost likely an infectious enteritis, possibly food poisoning mediated from her [employer] burger. Given her worsening of abdominal findings, as well as white count, imaging was undertaken to rule out perforation. Fortunately there was no such findings, CT was consistent with expected, and given her worsening, she did meet criteria to initiate antibiotic sRocephin to cover gram negatives given her Cipro allergy, metronidazole to cover anaerobes. In regards to the distribution on CT scan that raises concern for ischemic colitis, she has had significant pain matched by her exam (rather than the classic pain out of proportion to exam that fits with ischemic colitis), and has not had any bloody diarrhea. Low back pain/fibromyalgia flarecontinue pain control and supportive care. I suspect as an outpatient she would likely benefit from a trial of OMT for her fibromyalgia pain. DVT prophylaxisheparin subcu Subjective Ms. Jose states she had an uncomfortable night. Is requesting more frequent administration of her Xanax today. States she has some 'fair " nausea, no vomitting, last bowel movement overnight. Has abd pain which she describes as including the lower quadrants. Denies CALDWELL, chest pain, SOB, palps, constipation, dysuria, hematuria. States she has not put out a lot of urine despite the IV fluids. Review of Systems Review of Systems: All systems reviewed & are unremarkable except as noted in HPI & below Physical Exam Physical Exam: General: Alert, oriented, morbidly obese pleasant woman laying in bed. HEENT: NC/AT, PERRLA, EOMI, oropharynx moist. Chest: Nontender to palpation. CV: RRR, Normal s1, s2. No murmurs appreciated Resp: Breath sounds clear bilaterally but decreased due to habitus, no increased effort of breathing. No crackles/rhonchi/rales. Abdomen: Soft, diffusely tender with guarding, some suprapubic tenderness. Extremities: Trace edema in lower extremities bilaterally. Results & Data Vital Signs (Past 12 Hours) Vital Signs Temp Pulse Resp BP Pulse Ox 12/06/18 07:00 36.4 C L 107 H 22 165/96 H 99 Laboratory Results Laboratory Results - last 24 hr 12/05/18 12/05/18 12/06/18 16:35 20:56 04:29 WBC RBC Hgb Hct MCV MCH MCHC RDW Std Deviation RDW Coeff of Elizabeth Plt Count MPV Sodium Potassium Chloride Carbon Dioxide Anion Gap BUN Creatinine Est Cr Clr Drug Dosing Est GFR ( Amer) Est GFR (Non-Af Amer) BUN/Creatinine Ratio Glucose POC Glucose 154 H 146 H 135 H Estimat Average Glucose Hemoglobin A1c Lactate Calcium C-Reactive Protein 12/06/18 12/06/18 12/06/18 05:48 05:48 05:48 WBC 25.04 H RBC 5.28 Hgb 15.7 Hct 48.4 H MCV 91.7 MCH 29.7 MCHC 32.4 RDW Std Deviation 50.8 H RDW Coeff of Elizabeth 15.0 H Plt Count 253 MPV 9.1 Sodium 139 Potassium 3.9 Chloride 103 Carbon Dioxide 31 Anion Gap 5.0 BUN 10 D Creatinine 0.82 Est Cr Clr Drug Dosing 84.2 Est GFR ( Amer) 85.8 Est GFR (Non-Af Amer) 74.0 BUN/Creatinine Ratio 12.5 Glucose 160 H POC Glucose Estimat Average Glucose 137 Hemoglobin A1c 6.4 H Lactate Calcium 8.9 C-Reactive Protein 12/06/18 12/06/18 12/06/18 07:56 08:58 08:58 WBC RBC Hgb Hct MCV MCH MCHC RDW Std Deviation RDW Coeff of Elizabeth Plt Count MPV Sodium Potassium Chloride Carbon Dioxide Anion Gap BUN Creatinine Est Cr Clr Drug Dosing Est GFR ( Amer) Est GFR (Non-Af Amer) BUN/Creatinine Ratio Glucose POC Glucose 136 H Estimat Average Glucose Hemoglobin A1c Lactate 1.7 Calcium C-Reactive Protein 17.80 H 12/06/18 11:39 WBC RBC Hgb Hct MCV MCH MCHC RDW Std Deviation RDW Coeff of Elizabeth Plt Count MPV Sodium Potassium Chloride Carbon Dioxide Anion Gap BUN Creatinine Est Cr Clr Drug Dosing Est GFR ( Amer) Est GFR (Non-Af Amer) BUN/Creatinine Ratio Glucose POC Glucose 124 H Estimat Average Glucose Hemoglobin A1c Lactate Calcium C-Reactive Protein Diagnostic Findings Laboratory Results - last 24 hr 12/05/18 12/05/18 12/06/18 16:35 20:56 04:29 WBC RBC Hgb Hct MCV MCH MCHC RDW Std Deviation RDW Coeff of Elizabeth Plt Count MPV Sodium Potassium Chloride Carbon Dioxide Anion Gap BUN Creatinine Est Cr Clr Drug Dosing Est GFR ( Amer) Est GFR (Non-Af Amer) BUN/Creatinine Ratio Glucose POC Glucose 154 H 146 H 135 H Estimat Average Glucose Hemoglobin A1c Lactate Calcium C-Reactive Protein 12/06/18 12/06/18 12/06/18 05:48 05:48 05:48 WBC 25.04 H RBC 5.28 Hgb 15.7 Hct 48.4 H MCV 91.7 MCH 29.7 MCHC 32.4 RDW Std Deviation 50.8 H RDW Coeff of Elizabeth 15.0 H Plt Count 253 MPV 9.1 Sodium 139 Potassium 3.9 Chloride 103 Carbon Dioxide 31 Anion Gap 5.0 BUN 10 D Creatinine 0.82 Est Cr Clr Drug Dosing 84.2 Est GFR ( Amer) 85.8 Est GFR (Non-Af Amer) 74.0 BUN/Creatinine Ratio 12.5 Glucose 160 H POC Glucose Estimat Average Glucose 137 Hemoglobin A1c 6.4 H Lactate Calcium 8.9 C-Reactive Protein 12/06/18 12/06/18 12/06/18 07:56 08:58 08:58 WBC RBC Hgb Hct MCV MCH MCHC RDW Std Deviation RDW Coeff of Elizabeth Plt Count MPV Sodium Potassium Chloride Carbon Dioxide Anion Gap BUN Creatinine Est Cr Clr Drug Dosing Est GFR ( Amer) Est GFR (Non-Af Amer) BUN/Creatinine Ratio Glucose POC Glucose 136 H Estimat Average Glucose Hemoglobin A1c Lactate 1.7 Calcium C-Reactive Protein 17.80 H 12/06/18 11:39 WBC RBC Hgb Hct MCV MCH MCHC RDW Std Deviation RDW Coeff of Elizabeth Plt Count MPV Sodium Potassium Chloride Carbon Dioxide Anion Gap BUN Creatinine Est Cr Clr Drug Dosing Est GFR ( Amer) Est GFR (Non-Af Amer) BUN/Creatinine Ratio Glucose POC Glucose 124 H Estimat Average Glucose Hemoglobin A1c Lactate Calcium C-Reactive Protein Medications Administered Home Medications albuterol sulfate [ProAir HFA] 1 puff INHALATION Q6H PRN 02/17/18 [History Confirmed 12/05/18] alprazolam [Xanax] 0.5 mg PO DAILY PRN 02/17/18 [History Confirmed 12/05/18] benazepril 20 mg PO QAM 02/17/18 [History Confirmed 12/05/18] cholecalciferol (vitamin D3) [Vitamin D3] 1,000 unit PO DAILY 02/17/18 [History Confirmed 12/05/18] fluticasone propionate [Flonase Allergy Relief] 1 spray INTRANASAL HS 02/17/18 [History Confirmed 12/05/18] levothyroxine 200 mcg PO QAM 02/17/18 [History Confirmed 12/05/18] acetaminophen [Tylenol 8 Hour] 1,300 mg PO BID 10/04/18 [History Confirmed 12/05/18] benazepril 10 mg PO HS PRN 10/04/18 [History Confirmed 12/05/18] loratadine-pseudoephedrine [Claritin-D 24 Hour] 1 tab PO HS 10/04/18 [History Confirmed 12/05/18] morphine 30 mg PO Q12H 10/04/18 [History Confirmed 12/05/18] levothyroxine 50 mcg PO DAILY 12/05/18 [History Confirmed 12/05/18] turmeric 0 mg PO DAILY 12/05/18 [History Confirmed 12/05/18] Active Medications Acetaminophen (Tylenol) 1,000 mg PO BID@1100,2200 [facility] Stop: 01/04/19 10:59 Last Admin: 12/05/18 11:57 Dose: 1,000 mg Documented by: Acetaminophen (Tylenol) 650 mg PO Q4H PRN PRN Reason: pain/fever Stop: 01/04/19 08:10 Last Admin: 12/05/18 09:07 Dose: 650 mg Documented by: Acetaminophen (Tylenol) 650 mg PO TID [facility] Stop: 01/04/19 20:59 Last Admin: 12/06/18 14:25 Dose: 650 mg Documented by: Albuterol (Ventolin Hfa) 1 puffs INH Q6H PRN PRN Reason: Shortness Of Breath Stop: 01/04/19 08:10 Alprazolam (Xanax) 0.5 mg PO Q12 PRN PRN Reason: Anxiety Stop: 01/04/19 08:10 Aspirin (Ecotrin Ectab) 81 mg PO DAILY [facility] Stop: 01/04/19 08:59 Last Admin: 12/06/18 08:10 Dose: 81 mg Documented by: Dextrose (Dextrose 50%) 25 - 50 ml IV UD PRN; Protocol PRN Reason: Hypoglycemia Protocol Stop: 01/04/19 08:10 Dicyclomine HCl (Bentyl) 10 mg PO QID [facility] Stop: 01/04/19 08:59 Last Admin: 12/06/18 12:26 Dose: 10 mg Documented by: Docusate Sodium (Colace) 100 mg PO BID PRN PRN Reason: Constipation Stop: 01/04/19 08:10 Enalapril Maleate (Vasotec) 20 mg PO QAM [facility] Stop: 01/04/19 08:59 Last Admin: 12/06/18 08:10 Dose: 20 mg Documented by: Fluticasone Propionate (Flonase) 1 sprays NA HS [facility] Stop: 01/04/19 20:59 Last Admin: 12/05/18 21:11 Dose: 1 sprays Documented by: Glucagon (Glucagen) 1 mg SQ UD PRN; Protocol PRN Reason: Hypoglycemia Protocol Stop: 01/04/19 08:10 Glucose (Dex4 Glucose) 4 - 8 tabs PO UD PRN; Protocol PRN Reason: Hypoglycemia Protocol Stop: 01/04/19 08:10 Glucose (Glucose 40%) 15 - 30 gm PO UD PRN; Protocol PRN Reason: Hypoglycemia Protocol Stop: 01/04/19 08:10 Heparin Sodium (Porcine) (Heparin Sodium (Porcine)) 5,000 units SQ Q8 [facility] Stop: 01/04/19 13:59 Last Admin: 12/06/18 14:25 Dose: 5,000 units Documented by: Sodium Chloride (Nss 1000ml) 1,000 mls @ 125 mls/hr IV .Q8H [facility] Stop: 01/05/19 13:14 Last Admin: 12/06/18 13:47 Dose: 125 mls/hr Documented by: Insulin Aspart (Novolog Flexpen) 0 units SC ACHS [facility] Stop: 01/04/19 08:10 Last Admin: 12/06/18 13:05 Dose: Not Given Documented by: Levothyroxine Sodium (Synthroid) 200 mcg PO DAILYBB [facility] Stop: 01/04/19 08:59 Last Admin: 12/06/18 05:44 Dose: 200 mcg Documented by: Levothyroxine Sodium (Synthroid) 50 mcg PO DAILYBB [facility] Stop: 01/04/19 08:59 Last Admin: 12/06/18 05:44 Dose: 50 mcg Documented by: Lidocaine (Lidoderm 5%) 1 patch TD QAM [facility] Stop: 01/04/19 20:59 Last Admin: 12/06/18 08:11 Dose: 1 patch Documented by: Loratadine/Pseudoephedrine Sulfate (Claritin-D 24 Hour) 1 tab PO HS [facility] Stop: 01/04/19 20:59 Last Admin: 12/05/18 21:10 Dose: 1 tab Documented by: Miscellaneous (Carbohydrates For Hypoglycemia) 15 - 30 gm PO UD PRN PRN Reason: Hypoglycemia Treatment Stop: 01/04/19 08:10 Miscellaneous (Remove Lidoderm Patch) 1 ea N/A DAILY@2100 [facility] Stop: 01/05/19 05:59 Last Admin: 12/06/18 05:45 Dose: 1 ea Documented by: Morphine Sulfate (Ms Contin) 30 mg PO Q12 [facility] Stop: 12/19/18 08:10 Last Admin: 12/06/18 08:14 Dose: 30 mg Documented by: Morphine Sulfate (Morphine Sulfate) 2 mg IV Q4H PRN PRN Reason: Pain Stop: 12/19/18 08:10 Last Admin: 12/06/18 04:28 Dose: 2 mg Documented by: Ondansetron HCl (Zofran) 4 mg IV Q6H PRN PRN Reason: Nausea Stop: 01/04/19 08:10 Last Admin: 12/05/18 15:48 Dose: 4 mg Documented by: Simethicone (Mylicon) 80 mg PO Q6H PRN PRN Reason: gas pain Stop: 01/04/19 08:10 Last Admin: 12/05/18 09:47 Dose: 80 mg Documented by: Vitamin D (Vitamin D3) 1,000 units PO DAILY [facility] Stop: 01/04/19 08:59 Last Admin: 12/06/18 08:09 Dose: 1,000 units Documented by: PG Care Time/CCT Total # of Minutes Spent Total Time Spent with Patient: Total time spent is greater than 50% in coordination of care (as documented) at patient's floor/unit and/or counseling patient: Resident Activity Tracking Resident Involvement: Resident Care Provided Care Provided: Adult Hospital Medicine (1) Vomiting Nausea presence: with nausea Vomiting Intractability: intractable Vomiting type: unspecified Qualified Code(s): R11.2 - Nausea with vomiting, unspecified
[2018-12-06] MEDS ORDERED: MoRPHine SULFATE 4 MG/ML 1 ML CARP\\VIAL IV STA (15:30)
--- NOTE | 2018-12-06 16:49 | CT Scan Report ---
CT abd pelvis wo con CLINICAL HISTORY: 68 years-old Female presenting with abd tenderness. TECHNIQUE: Multidetector CT of the abdomen and pelvis was performed without the use of intravenous co ntrast. IV contrast: None. One or more dose lowering techniques were used consistent with the princip les of ALA (as low as reasonably achievable), including automatic exposure control, mA or kV adjust ment to individual patient size, and/or use of iterative reconstruction. COMPARISON: CT pelvis from 12/10/2017. CT DOSE (mGy.cm): The estimated cumulative dose is 1552.50 mGy.cm. FINDINGS: Staging Technician topogram: Unremarkable. Lung bases: Normal heart size. No pericardial or pleural effusion. Minimal dependent changes likely a telectasis. Liver: Normal morphology. Normal density. Biliary: No gross biliary ductal dilatation allowing for noncontrast technique. Normal gallbladder. Pancreas: Moderate parenchymal atrophy. Spleen: Normal noncontrast appearance. Splenule noted. Adrenal glands: Normal noncontrast appearance. Kidneys and ureters: Anteriorly oriented right renal pelvis consistent with malrotation. No hydroneph rosis or distention of the right ureter. No nephrolithiasis. Left kidney normal apart from a suspecte d cyst at the lower pole. Bladder: Decompressed with a Vasquez catheter. Foci of gas within the lumen relate to the presence of t he catheter. Pelvic organs: Uterus surgically absent. No adnexal masses. Bowel: Focal wall thickening of the distal transverse colon. No convincing evidence of pneumatosis in this region. Lesser degree of wall thickening more diffusely in the transverse colon. The ascending colon is uninvolved. The appendix is normal. No bowel obstruction. Peritoneal cavity: Small free fluid in the pelvis and lower abdomen. No free intraperitoneal gas. Lymph nodes: No gross lymphadenopathy allowing for noncontrast technique. Vasculature: Atherosclerosis of the normal caliber abdominal aorta. Abdominal wall: Normal. Musculoskeletal: Degenerative changes of the spine. IMPRESSION: 1. Colonic wall thickening involving the transverse colon most severely the distal transverse colon. An infectious etiology is considered most likely, however, the distribution makes an ischemic coliti s difficult to exclude. If the patient cannot receive intravenous contrast, a mesenteric Doppler ultr asound could at least confirm patency of the origins and proximal portions of the major branch vessel s of the abdominal aorta including the superior mesenteric artery. 2. Small free fluid in the pelvis and lower abdomen, likely reactive. 3. No appendicitis. The report will be called/faxed according to standard departmental protocol. Electronically signed by: Jose Combs M.D. 12/06/2018 4:48 PM
[2018-12-06] MEDS: ONDANSETRON INJ 2 MG/ML 2 ML VIAL IV PRN (17:00)
[2018-12-06] MEDS: cefTRIAXone SODIUM 2,000 MG in DEXTROSE 5% 50 ML IV SCH (17:01)
[2018-12-06] MEDS: metroNIDAZOLE 500 MG/100 ML BAG IV SCH ×2 (17:07→23:17)
[2018-12-06] MEDS: ACETAMINOPHEN 325 MG TAB PO PRN (18:30)
[2018-12-06] MEDS: SIMETHICONE 80 MG CHEW PO PRN (19:54)
[2018-12-06] MEDS: LORATADINE/PSEUDOEPHEDRINE 1 TABCR PO SCH (20:34)
[2018-12-06] MEDS: FLUTICASONE PROPIONATE NA SPR 16 GM BTL SCH (21:07)
[2018-12-06 21:49] LABS: Appearance Urine Clear (Clear); Bacteria Urine Automated Negative (Negative); Bilirubin Urine Negative (Negative); Blood Urine 3+ (Negative); Color Urine Yellow; Epithelial Cell Urine Auto 20-30 /lpf (0-5); Glucose Urine UA Negative (Negative); Ketones Urine Negative (Negative); Leukocyte Esterase Urine 2+ (Negative); Nitrite Urine Negative (Negative); Protein Urine Trace (Negative); RBC Urine Automated >30 /hpf (0-4); Specific Gravity Urine 1.013 (1.000-1.030); Urobilinogen Urine Negative (Negative); pH Urine 6.5 (4.5-7.5)
[2018-12-07] MEDS: ACETAMINOPHEN 325 MG TAB PO PRN (01:17)
[2018-12-07] MEDS: LEVOTHYROXINE SODIUM 50 MCG TABLET PO SCH (05:33)
[2018-12-07] MEDS: HEPARIN SOD 5,000 UNIT/0.5 ML VIAL SQ SCH ×3 (05:33→21:13)
[2018-12-07] MEDS: LEVOTHYROXINE SODIUM 200 MCG TABLET PO SCH (05:33)
[2018-12-07 05:52] LABS: Basophils # (auto) 0.02 K/uL (0-0.2); Basophils % (auto) 0.1 %; Eosinophils # (auto) 0.07 K/uL (0-0.5); Eosinophils % (auto) 0.3 %; Hematocrit (blood only) 43.8 % (37-47); Hemoglobin 14.2 g/dL (12.0-16.0); Immature Granulocytes # (auto) 0.12 K/uL (0.00-0.02); Immature Granulocytes % (auto) 0.5 %; Lymphocytes # (auto) 3.68 K/uL (1.2-3.4); Lymphocytes % (auto) 14.4 %; Mean Corpuscular Hemoglobin 29.6 pg (25-34); Mean Corpuscular Hgb Conc 32.4 g/dL (32-36); Mean Corpuscular Volume 91.4 fL (80-100); Mean Platelet Volume 9.3 fL (7.4-10.4); Monocytes # (auto) 2.02 K/uL (0.11-0.59); Monocytes % (auto) 7.9 %; Neutrophils % (auto) 76.8 %; Platelet Count 236 K/uL (130-400); RDW Coefficient of Variation 15.1 % (11.5-14.5); Red Blood Count 4.79 M/uL (4.2-5.4); White Blood Count 25.61 K/uL (4.8-10.8)
[2018-12-07] MEDS: MoRPHine SULFATE 2 MG/ML CARP IV PRN ×4 (06:22→23:30)
[2018-12-07] MEDS: SODIUM CHLORIDE 0.9% 1000ML 1,000 ML IV SCH ×3 (06:22→21:51)
[2018-12-07 06:27] LABS: Albumin Level 2.4 gm/dl (3.4-5.0); BUN Creatinine Ratio 14.8 (10-20); Calcium 8.3 mg/dl (8.5-10.1); Creatinine Clr Calc Pharmacy 119.1 ml/min; Est GFR (African American) 110.5; Est GFR (Non-African American) 95.4; Potassium 3.6 mmol/L (3.5-5.1)
[2018-12-07 06:30] LABS: Albumin Globulin Ratio 0.5 (0.9-2); Bilirubin,Total 0.7 mg/dl (0.2-1); Globulin 4.4 gm/dl (2.5-4.0); Total Protein 6.8 gm/dl (6.4-8.2)
[2018-12-07] MEDS: CHOLECALCIFEROL 1,000 UNITS TAB PO SCH (07:53)
[2018-12-07] MEDS: DICYCLOMINE HCL 10 MG CAP PO SCH ×4 (07:53→20:06)
[2018-12-07] MEDS: MoRPHine SULFATE CR 15 MG TABCR PO SCH ×2 (07:53→20:06)
[2018-12-07] MEDS: ASPIRIN 81 MG ECTAB PO SCH (07:54)
[2018-12-07] MEDS: LIDOCAINE 5% 1 PATCH TD SCH (07:54)
[2018-12-07] MEDS: ENALAPRIL MALEATE 10 MG TAB PO SCH (07:55)
[2018-12-07] MEDS: metroNIDAZOLE 500 MG/100 ML BAG IV SCH ×3 (07:55→23:29)
[2018-12-07] MEDS: ACETAMINOPHEN 325 MG TAB PO SCH ×3 (08:01→20:11)
[2018-12-07] MEDS: INSULIN ASPART 100 UNITS/ML 3 ML PEN SC SCH ×4 (09:53→20:07)
--- NOTE | 2018-12-07 10:01 | Family Medicine Progress Note ---
Date of Service December 07, 2018 Assessment & Plan (1) Vomiting: Ms. Jose is a 68 year old morbidly obese woman with baseline chronic back pain on morphine at home who presented with a likely gastroenteritis. N/V/D and abdominal pain -Pt presented with gastroenteritis picture, N/V/D after having a cheeseburger. -Abdomen with tenderness and guarding. -CT withOUT contrast 12/06-with colitis picture; less likely mesenteric ischemia given presenting symptoms -WBC stabilized currently, but still elevated -continue ceftriaxone and flagyl (pt allergic to cipro) -cont NSS at 125 for dehydration given the hx of diarhhea, zofran for nausea -Decreased urinary output Hx; frank placed. -UA unremarkable, urine culture pending Hand swelling -hand swelling this AM -likely due to fluids -continue NSS at 125 due to denhdration from gastroenteritis above Back Pain -Continuing morphine, lidocaine patch -will continue to monitor Failure to Thrive -Patient lives alone; limited ambulation due to back pain -PT/OT-appreciate recs- referral to [facility] placed F/E/N: NSS@80. Diabetic diet DVT PPx: lovenox Dispo: [facility]. Supervising Physician Co-Signing Physician Notes I personally examined the patient and verified all jasmine points of history and exam, discussed case, and agree with decision making with Dr Jimenez. Feeling better. Ate a little. No vomiting, no diarrhea. Vitals noted, in general she is awake and alert, anxious somewhat fatigued appearing but brighter than yesterday. HEENT normocephalic atraumatic mucous membranes moist. Breathing unlabored no accessory muscle use good effort. Abdomen less distended than yesterday, less tender, still is fairly distended and diffusely tender, but no guarding/rebound/rigidity. Nausea vomiting diarrheamost likely an infectious enteritis, possibly food poisoning mediated from her [employer] burger. Fortunately seems to be improving. Continue ceftriaxone and Flagyl Low back pain/fibromyalgia flarecontinue current pain control and supportive care, try to increase mobility. I suspect as an outpatient she would likely benefit from a trial of OMT for her fibromyalgia pain. DVT prophylaxisheparin subcu Subjective Ms. Jose states she had an uncomfortable night. Concerned about hand swelling, and dark urine this AM. States her nausea and vomitting as well as diarrhea has resolved. States she has some abd growling after eating, however she has been eating some toast, eggs and drank some coffee. Denies CALDWELL, chest pain, SOB, palps, constipation, dysuria, hematuria. Review of Systems Review of Systems: All systems reviewed & are unremarkable except as noted in HPI & below Physical Exam Physical Exam: General: Alert, oriented, morbidly obese pleasant woman laying in bed. HEENT: NC/AT, PERRLA, EOMI, oropharynx moist. Chest: Nontender to palpation. CV: RRR, Normal s1, s2. No murmurs appreciated Resp: Breath sounds clear bilaterally but decreased due to habitus, no increased effort of breathing. No crackles/rhonchi/rales. Abdomen: Soft, diffusely tender with guarding, some suprapubic tenderness. Extremities: Trace edema in lower extremities bilaterally. Results & Data Vital Signs (Past 12 Hours) Vital Signs Temp Pulse Resp BP BP Pulse Ox 12/07/18 07:35 36.9 C 82 20 188/70 H 99 12/06/18 23:02 36.7 C 104 H 18 157/67 H 98 Laboratory Results Laboratory Results - last 24 hr 12/06/18 12/06/18 12/06/18 11:39 16:49 19:10 WBC RBC Hgb Hct MCV MCH MCHC RDW Std Deviation RDW Coeff of Elizabeth Plt Count MPV Immature Gran % (Auto) Neut % (Auto) Lymph % (Auto) [place] % (Auto) Eos % (Auto) Baso % (Auto) Immature Gran # (Auto) Neut # (Auto) Lymph # (Auto) [place] # (Auto) Eos # (Auto) Baso # (Auto) Sodium Potassium Chloride Carbon Dioxide Anion Gap BUN Creatinine Est Cr Clr Drug Dosing Est GFR ( Amer) Est GFR (Non-Af Amer) BUN/Creatinine Ratio Glucose POC Glucose 124 H 141 H Calcium Total Bilirubin AST ALT Alkaline Phosphatase Total Creatine Kinase Total Protein Albumin Globulin Albumin/Globulin Ratio Urine Color Yellow Urine Appearance Clear Urine pH 6.5 Ur Specific [place] 1.013 Urine Protein Trace H Urine Glucose (UA) Negative Urine Ketones Negative Urine Blood 3+ H Urine Nitrite Negative Urine Bilirubin Negative Urine Urobilinogen Negative Ur Leukocyte Esterase 2+ H Urine WBC (Auto) 10-30 H Urine RBC (Auto) >30 H U Hyaline Cast (Auto) 1-5 U Epithel Cells (Auto) 20-30 H Urine Bacteria (Auto) Negative 12/06/18 12/07/18 12/07/18 20:43 05:26 05:26 WBC 25.61 H RBC 4.79 Hgb 14.2 Hct 43.8 MCV 91.4 MCH 29.6 MCHC 32.4 RDW Std Deviation 51.0 H RDW Coeff of Elizabeth 15.1 H Plt Count 236 MPV 9.3 Immature Gran % (Auto) 0.5 Neut % (Auto) 76.8 Lymph % (Auto) 14.4 [place] % (Auto) 7.9 Eos % (Auto) 0.3 Baso % (Auto) 0.1 Immature Gran # (Auto) 0.12 H Neut # (Auto) 19.70 H Lymph # (Auto) 3.68 H [place] # (Auto) 2.02 H Eos # (Auto) 0.07 Baso # (Auto) 0.02 Sodium 139 Potassium 3.6 Chloride 105 Carbon Dioxide 31 Anion Gap 3.0 BUN 9 Creatinine 0.58 L Est Cr Clr Drug Dosing 119.1 Est GFR ( Amer) 110.5 Est GFR (Non-Af Amer) 95.4 BUN/Creatinine Ratio 14.8 Glucose 108 H POC Glucose 153 H Calcium 8.3 L Total Bilirubin 0.7 AST 8 L ALT 12 Alkaline Phosphatase 108 Total Creatine Kinase Total Protein 6.8 Albumin 2.4 L Globulin 4.4 H Albumin/Globulin Ratio 0.5 L Urine Color Urine Appearance Urine pH Ur Specific [place] Urine Protein Urine Glucose (UA) Urine Ketones Urine Blood Urine Nitrite Urine Bilirubin Urine Urobilinogen Ur Leukocyte Esterase Urine WBC (Auto) Urine RBC (Auto) U Hyaline Cast (Auto) U Epithel Cells (Auto) Urine Bacteria (Auto) 12/07/18 12/07/18 05:26 08:04 WBC RBC Hgb Hct MCV MCH MCHC RDW Std Deviation RDW Coeff of Elizabeth Plt Count MPV Immature Gran % (Auto) Neut % (Auto) Lymph % (Auto) [place] % (Auto) Eos % (Auto) Baso % (Auto) Immature Gran # (Auto) Neut # (Auto) Lymph # (Auto) [place] # (Auto) Eos # (Auto) Baso # (Auto) Sodium Potassium Chloride Carbon Dioxide Anion Gap BUN Creatinine Est Cr Clr Drug Dosing Est GFR ( Amer) Est GFR (Non-Af Amer) BUN/Creatinine Ratio Glucose POC Glucose 99 Calcium Total Bilirubin AST ALT Alkaline Phosphatase Total Creatine Kinase 28 Total Protein Albumin Globulin Albumin/Globulin Ratio Urine Color Urine Appearance Urine pH Ur Specific [place] Urine Protein Urine Glucose (UA) Urine Ketones Urine Blood Urine Nitrite Urine Bilirubin Urine Urobilinogen Ur Leukocyte Esterase Urine WBC (Auto) Urine RBC (Auto) U Hyaline Cast (Auto) U Epithel Cells (Auto) Urine Bacteria (Auto) Medications Administered Home Medications albuterol sulfate [ProAir HFA] 1 puff INHALATION Q6H PRN 02/17/18 [History Confirmed 12/05/18] alprazolam [Xanax] 0.5 mg PO DAILY PRN 02/17/18 [History Confirmed 12/05/18] benazepril 20 mg PO QAM 02/17/18 [History Confirmed 12/05/18] cholecalciferol (vitamin D3) [Vitamin D3] 1,000 unit PO DAILY 02/17/18 [History Confirmed 12/05/18] fluticasone propionate [Flonase Allergy Relief] 1 spray INTRANASAL HS 02/17/18 [History Confirmed 12/05/18] levothyroxine 200 mcg PO QAM 02/17/18 [History Confirmed 12/05/18] acetaminophen [Tylenol 8 Hour] 1,300 mg PO BID 10/04/18 [History Confirmed 12/05/18] benazepril 10 mg PO HS PRN 10/04/18 [History Confirmed 12/05/18] loratadine-pseudoephedrine [Claritin-D 24 Hour] 1 tab PO HS 10/04/18 [History Confirmed 12/05/18] morphine 30 mg PO Q12H 10/04/18 [History Confirmed 12/05/18] levothyroxine 50 mcg PO DAILY 12/05/18 [History Confirmed 12/05/18] turmeric 0 mg PO DAILY 12/05/18 [History Confirmed 12/05/18] Active Medications Acetaminophen (Tylenol) 1,000 mg PO BID@1100,2200 LITTLE Stop: 01/04/19 10:59 Last Admin: 12/05/18 11:57 Dose: 1,000 mg Documented by: Acetaminophen (Tylenol) 650 mg PO Q4H PRN PRN Reason: pain/fever Stop: 01/04/19 08:10 Last Admin: 12/07/18 01:17 Dose: 650 mg Documented by: Acetaminophen (Tylenol) 650 mg PO TID [facility] Stop: 01/04/19 20:59 Last Admin: 12/07/18 08:01 Dose: 650 mg Documented by: Albuterol (Ventolin Hfa) 1 puffs INH Q6H PRN PRN Reason: Shortness Of Breath Stop: 01/04/19 08:10 Alprazolam (Xanax) 0.5 mg PO Q12 PRN PRN Reason: Anxiety Stop: 01/04/19 08:10 Last Admin: 12/06/18 21:18 Dose: 0.5 mg Documented by: Aspirin (Ecotrin Ectab) 81 mg PO DAILY [facility] Stop: 01/04/19 08:59 Last Admin: 12/07/18 07:54 Dose: 81 mg Documented by: Dextrose (Dextrose 50%) 25 - 50 ml IV UD PRN; Protocol PRN Reason: Hypoglycemia Protocol Stop: 01/04/19 08:10 Dicyclomine HCl (Bentyl) 10 mg PO QID [facility] Stop: 01/04/19 08:59 Last Admin: 12/07/18 07:53 Dose: 10 mg Documented by: Docusate Sodium (Colace) 100 mg PO BID PRN PRN Reason: Constipation Stop: 01/04/19 08:10 Enalapril Maleate (Vasotec) 20 mg PO QAM [facility] Stop: 01/04/19 08:59 Last Admin: 12/07/18 07:55 Dose: 20 mg Documented by: Fluticasone Propionate (Flonase) 1 sprays NA HS [facility] Stop: 01/04/19 20:59 Last Admin: 12/06/18 21:07 Dose: 1 sprays Documented by: Glucagon (Glucagen) 1 mg SQ UD PRN; Protocol PRN Reason: Hypoglycemia Protocol Stop: 01/04/19 08:10 Glucose (Dex4 Glucose) 4 - 8 tabs PO UD PRN; Protocol PRN Reason: Hypoglycemia Protocol Stop: 01/04/19 08:10 Glucose (Glucose 40%) 15 - 30 gm PO UD PRN; Protocol PRN Reason: Hypoglycemia Protocol Stop: 01/04/19 08:10 Heparin Sodium (Porcine) (Heparin Sodium (Porcine)) 5,000 units SQ Q8 LITTLE Stop: 01/04/19 13:59 Last Admin: 12/07/18 05:33 Dose: Not Given Documented by: Sodium Chloride (Nss 1000ml) 1,000 mls @ 80 mls/hr IV .[id number] [facility] Stop: 01/05/19 13:14 Last Admin: 12/07/18 06:22 Dose: 125 mls/hr Documented by: Metronidazole (Flagyl) 500 mg in 100 mls @ 100 mls/hr IV Q8H [facility] Stop: 12/08/18 15:59 Last Infusion: 12/07/18 09:35 Dose: Infused Documented by: Ceftriaxone Sodium 2,000 mg/ (Dextrose) 70 mls @ 100 mls/hr IV Q24H [facility]; Protocol Stop: 12/08/18 15:59 Last Infusion: 12/06/18 17:43 Dose: Infused Documented by: Insulin Aspart (Novolog Flexpen) 0 units SC ACHS [facility] Stop: 01/04/19 08:10 Last Admin: 12/07/18 09:53 Dose: Not Given Documented by: Levothyroxine Sodium (Synthroid) 200 mcg PO DAILYBB [facility] Stop: 01/04/19 08:59 Last Admin: 12/07/18 05:33 Dose: 200 mcg Documented by: Levothyroxine Sodium (Synthroid) 50 mcg PO DAILYBB [facility] Stop: 01/04/19 08:59 Last Admin: 12/07/18 05:33 Dose: 50 mcg Documented by: Lidocaine (Lidoderm 5%) 1 patch TD QAM [facility] Stop: 01/04/19 20:59 Last Admin: 12/07/18 07:54 Dose: 1 patch Documented by: Loratadine/Pseudoephedrine Sulfate (Claritin-D 24 Hour) 1 tab PO HS [facility] Stop: 01/04/19 20:59 Last Admin: 12/06/18 20:34 Dose: 1 tab Documented by: Miscellaneous (Carbohydrates For Hypoglycemia) 15 - 30 gm PO UD PRN PRN Reason: Hypoglycemia Treatment Stop: 01/04/19 08:10 Miscellaneous (Remove Lidoderm Patch) 1 ea N/A DAILY@2100 [facility] Stop: 01/05/19 05:59 Last Admin: 12/06/18 21:11 Dose: 1 ea Documented by: Morphine Sulfate (Ms Contin) 30 mg PO Q12 [facility] Stop: 12/19/18 08:10 Last Admin: 12/07/18 07:53 Dose: 30 mg Documented by: Morphine Sulfate (Morphine Sulfate) 2 mg IV Q4H PRN PRN Reason: Pain Stop: 12/19/18 08:10 Last Admin: 12/07/18 06:22 Dose: 2 mg Documented by: Ondansetron HCl (Zofran) 4 mg IV Q6H PRN PRN Reason: Nausea Stop: 01/04/19 08:10 Last Admin: 12/06/18 17:00 Dose: 4 mg Documented by: Simethicone (Mylicon) 80 mg PO Q6H PRN PRN Reason: gas pain Stop: 01/04/19 08:10 Last Admin: 12/06/18 19:54 Dose: 80 mg Documented by: Vitamin D (Vitamin D3) 1,000 units PO DAILY [facility] Stop: 01/04/19 08:59 Last Admin: 12/07/18 07:53 Dose: 1,000 units Documented by: PG Care Time/CCT Total # of Minutes Spent Total Time Spent with Patient: Total time spent is greater than 50% in coordination of care (as documented) at patient's floor/unit and/or counseling patient: Resident Activity Tracking Resident Involvement: Resident Care Provided Care Provided: Adult Hospital Medicine (1) Vomiting Nausea presence: with nausea Vomiting Intractability: intractable Vomiting type: unspecified Qualified Code(s): R11.2 - Nausea with vomiting, unspecified
[2018-12-07] MEDS: SIMETHICONE 80 MG CHEW PO PRN ×2 (14:28→21:16)
[2018-12-07] MEDS: ALPRAZolam 0.5 MG TABLET PO PRN (14:32)
[2018-12-07] MEDS: cefTRIAXone SODIUM 2,000 MG in DEXTROSE 5% 50 ML IV SCH (16:48)
[2018-12-07] MEDS: ONDANSETRON INJ 2 MG/ML 2 ML VIAL IV PRN (19:44)
[2018-12-07] MEDS: FLUTICASONE PROPIONATE NA SPR 16 GM BTL SCH (20:07)
[2018-12-07] MEDS: LORATADINE/PSEUDOEPHEDRINE 1 TABCR PO SCH (20:07)
[2018-12-08] MEDS: ACETAMINOPHEN 325 MG TAB PO PRN ×3 (03:24→23:43)
[2018-12-08] MEDS: MoRPHine SULFATE 2 MG/ML CARP IV PRN ×4 (04:39→21:11)
[2018-12-08] MEDS: SODIUM CHLORIDE 0.9% 1000ML 1,000 ML IV SCH ×3 (05:34→23:44)
[2018-12-08] MEDS: LEVOTHYROXINE SODIUM 200 MCG TABLET PO SCH (05:35)
[2018-12-08] MEDS: LEVOTHYROXINE SODIUM 50 MCG TABLET PO SCH (05:35)
[2018-12-08] MEDS: HEPARIN SOD 5,000 UNIT/0.5 ML VIAL SQ SCH ×3 (05:39→21:15)
[2018-12-08] MEDS: ALPRAZolam 0.5 MG TABLET PO PRN ×2 (06:04→18:49)
[2018-12-08 07:02] LABS: Basophils # (auto) 0.02 K/uL (0-0.2); Basophils % (auto) 0.1 %; Eosinophils # (auto) 0.15 K/uL (0-0.5); Eosinophils % (auto) 0.9 %; Hemoglobin 13.2 g/dL (12.0-16.0); Immature Granulocytes # (auto) 0.05 K/uL (0.00-0.02); Immature Granulocytes % (auto) 0.3 %; Lymphocytes # (auto) 2.81 K/uL (1.2-3.4); Lymphocytes % (auto) 17.7 %; Mean Corpuscular Hemoglobin 29.6 pg (25-34); Mean Corpuscular Hgb Conc 32.2 g/dL (32-36); Mean Corpuscular Volume 91.9 fL (80-100); Mean Platelet Volume 9.1 fL (7.4-10.4); Monocytes # (auto) 1.16 K/uL (0.11-0.59); Monocytes % (auto) 7.3 %; Neutrophils # (auto) 11.72 K/uL (1.4-6.5); Neutrophils % (auto) 73.7 %; Platelet Count 206 K/uL (130-400); RDW Standard Deviation 50.7 fL (36.4-46.3); Red Blood Count 4.46 M/uL (4.2-5.4); White Blood Count 15.91 K/uL (4.8-10.8)
[2018-12-08 07:16] LABS: Partial Thromboplastin Ratio 1.1; Partial Thromboplastin Time 29.9 Seconds (21.0-31.0)
[2018-12-08] MEDS: DICYCLOMINE HCL 10 MG CAP PO SCH ×4 (07:32→21:05)
[2018-12-08] MEDS: ASPIRIN 81 MG ECTAB PO SCH (07:33)
[2018-12-08] MEDS: CHOLECALCIFEROL 1,000 UNITS TAB PO SCH (07:33)
[2018-12-08] MEDS: LIDOCAINE 5% 1 PATCH TD SCH (07:33)
[2018-12-08] MEDS: ENALAPRIL MALEATE 10 MG TAB PO SCH (07:33)
[2018-12-08] MEDS: metroNIDAZOLE 500 MG/100 ML BAG IV SCH (07:35)
[2018-12-08 07:38] LABS: Albumin Level 2.2 gm/dl (3.4-5.0); BUN Creatinine Ratio 10.9 (10-20); Calcium 7.9 mg/dl (8.5-10.1); Creatinine Clr Calc Pharmacy 106.3 ml/min; Est GFR (African American) 106.5; Est GFR (Non-African American) 91.9; Potassium 3.4 mmol/L (3.5-5.1)
[2018-12-08 07:40] LABS: Albumin Globulin Ratio 0.5 (0.9-2); Bilirubin,Total 0.5 mg/dl (0.2-1); Globulin 4.3 gm/dl (2.5-4.0); Total Protein 6.5 gm/dl (6.4-8.2)
[2018-12-08] MEDS: INSULIN ASPART 100 UNITS/ML 3 ML PEN SC SCH ×4 (08:52→21:14)
[2018-12-08] MEDS: ACETAMINOPHEN 325 MG TAB PO SCH ×3 (08:57→21:20)
[2018-12-08] MEDS: MoRPHine SULFATE CR 15 MG TABCR PO SCH ×2 (08:57→21:13)
[2018-12-08] MEDS: ONDANSETRON INJ 2 MG/ML 2 ML VIAL IV PRN (11:32)
[2018-12-08] MEDS ORDERED: ALUMINUM/MAGNESIUM SUSP 30 ML UDC PO STA (12:51)
[2018-12-08] MEDS ORDERED: LIDOCAINE HCL VISCOUS SOLN 2% 15 ML UDC PO ONE (12:51)
[2018-12-08] MEDS: FAMOTIDINE 20 MG TAB PO SCH ×2 (14:14→21:05)
--- NOTE | 2018-12-08 15:07 | Discharge Summary ---
Date of Service December 09, 2018 Admission HPI Per Admitting Provider Patient is a 68-year-old female presenting with abdominal pain and vomiting. When asked when symptoms began patient states "I do not know". When asked how many episodes of vomiting she experienced patient states "I do not know". When asked about presence of blood, hematemesis/coffee-ground emesis patient responds "I have no idea". She is complaining of severe cramping abdominal pain. Had one episode of diarrhea prior to coming to the ER. 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 ER course: Morphine, Zofran Admission Exam Per Admitting Provider General: Morbidly obese female in moderate distress secondary to abdominal pain, somewhat uncooperative with questioning and exam Skin: warm, dry, intact, no rashes or lesions, ecchymotic area on posterior thigh HEENT: NC/AT, PERRL, EOMI, anicteric sclera, conjunctiva without injection, external ear normal to inspection and nontender, nares patent, dry mucus membranes, dentition intact, no oropharyngeal lesions, neck supple, trachea midline, no LAD, no thyromegaly, no JVD Heart: +S1/S2, regular, no m/r/g, exam limited secondary to body habitus Lungs: equal air entry bilaterally, no rales/rhonchi/wheezes, exam limited secondary to body habitus Abd: +BS, diminished, soft, diffusely tender with voluntary guarding, nondistended, no masses/organomegaly/ascites, exam limited secondary to body habitus Ext: warm, 2+ pulses in UE/LE bilaterally, no clubbing/cyanosis or edema, chronic venous stasis changes in bilateral lower extremities Neuro: Grossly nonfocal, patient moving all extremities, diffusely weak- requiring quite a bit of assistance to roll onto bedpan Principal Diagnosis Colitis Discharge Exam General: Alert, oriented, morbidly obese pleasant woman laying in bed. HEENT: NC/AT, PERRLA, EOMI, oropharynx moist. Chest: Nontender to palpation. CV: RRR, Normal s1, s2. No murmurs appreciated Resp: Breath sounds clear bilaterally but decreased due to habitus, no increased effort of breathing. No crackles/rhonchi/rales. Abdomen: Soft, diffusely tender with guarding, some suprapubic tenderness. Extremities: Edema noted in lower extremities bilaterally. Discharge Data Allergies Allergy/AdvReac Type Severity Reaction Status Date / Time adhesive Allergy Severe SKIN Verified 12/05/18 03:54 BLISTERS/RED-AND WITH EKG STICKERS latex Allergy Severe BLISTERS/RED Verified 12/05/18 03:54 SKIN meperidine Allergy Severe CAN NOT Verified 12/05/18 03:54 FUNCTION Bactrim Allergy Unknown THROAT AND Verified 10/26/17 13:37 TONGUE SWELL Cipro Allergy Unknown UNKNOWN Verified 10/26/17 13:37 REACTION ciprofloxacin Allergy Unknown UNKNOWN Verified 12/05/18 03:54 REACTION Iodinated Contrast- Oral and Allergy Unknown REDNESS Verified 12/05/18 03:54 IV Dye AND SWELLING iodine Allergy Unknown Swelling/Red Verified 12/05/18 03:54 Skin-TOPICAL OK sulfamethoxazole Allergy Unknown THROAT AND Verified 10/04/18 18:20 TONGUE SWELL trimethoprim Allergy Unknown THROAT AND Verified 12/05/18 03:54 TONGUE SWELL diazepam AdvReac Severe CAN NOT Verified 10/04/18 18:20 FUNCTION Unclassified Drugs Allergy Unknown ANY Uncoded 10/04/18 18:20 MYCINS-ITCHY THROAT SWELLING Consultations 12/05/18 06:12 ED Decision to Admit Stat 12/05/18 08:11 Consult Case Management - Discharge Planning Routine Ordered Studies 12/06/18 16:25 CT abd pelvis wo con Stat Hospital Course (1) Vomiting: Ms. Jose is a 68 year old morbidly obese woman with baseline chronic back pain on morphine at home who presented with a likely gastroenteritis. Admitted on Dec 05 and discharged on Dec 09, 2018. N/V/D and abdominal pain -Pt presented with gastroenteritis picture, N/V/D after having a cheeseburger. -Abdomen with tenderness and guarding. -Declined imaging initially with complaint of severe back pain. -CT withOUT contrast eventually on 12/06 after IV morphine 4mg x2-showed colitis picture; less likely mesenteric ischemia given presenting symptoms -WBC downtrending on discharge, but still elevated >14, 000. -ceftriaxone and flagyl (pt allergic to cipro) while hospitalized for 2 days and discharged with 3 days of Flagyl and cefdinir -NSS at 125 for dehydration given the hx of diarrhea, zofran for nausea -Decreased urinary output Hx; frank placed. -UA unremarkable, urine culture with no growth on discharge. -Close PCP followup strongly recommended. Hand swelling -hand swelling after IV fluid administration. -likely due to fluids -continued NSS at 125 due to dehydration from gastroenteritis above -stable on discharge; advised hand swelling should resolve in a few days. Back Pain -Continuing morphine, lidocaine patch -close PCP followup strongly recommended. Failure to Thrive -Patient lives alone; limited ambulation due to back pain -PT/OT-with recs for home health help at home. -Discharged with home health services. Total Time Total Time Spent Total Time Spent (In Minutes): <30 Discharge Plan Discharge Items Patient Disposition: Home - Home Health Services Reason For Visit: abd pain Discharge Diagnosis: Colitis Discharge Goals: Decrease discomfort and Improve disease control Activity: Per 'Additional Instructions' section Non-emergency contact: Primary Care Provider Call non-emergency contact if: your symptoms worsen and you have a fever Follow-up/Referrals: Aidan Ledbetter MD [Primary Care Provider] - 12/13/18 9:50 am (Please, follow up at [facility] with Dr. Ledbetter's associate, Dr. Steven, on ThursdayDecember 13 at 9:[address] Ledbetter is out of the office next week. *PLEASE, TAKE NOTE OF THE LOCATION* THIS APPOINTMENT WILL BE AT THE OFFICE LOCATED IN [address] OF [facility]. THIS IS THE BIG BUILDING LOCATED NEXT TO THIS HOSPITAL. If you need to change this appointment, call the office at [phone].) Diet: Regular Addtl Provider Instructions: Ms. Jose, you were admitted because you had a severe form of gastroenteritis that resulted in inflammation of your bowels and likely contributed to your abdominal pain, nausea and vomitting you presented with. You were treated with antibiotics and fluids and you seemed to get better. -Please continue taking the oral versions of your antibiotics at home. Take your Flagyl medication every 8 hours for the next 3 days (starting TODAY when you get home). Take your cefdinir 300mg twice a day for the next 3 days starting TODAY when you get home. -We are also discharging you with pepcid which you can take every night for the next week. Follow up with your primary doctor within the next week. -We ask that you continue to stay hydrated; you can tell how hydrated you are by the color of your urine. If your urine looks cola/apple cider colored, then it means you need to drink more water. -Continue taking your home pain medications for your chronic back pain and fibromyalgia; we also ask that you follow up with your primary care provider and specialist for these problems, you mentioned Dr. Ogden. -Please have an appointment set up with your primary care doctor within the next week after discharge. -We have also set you up with home health services. Please continue to use them for your health services at home. -Should your symptoms worsen, please seek emergent medical care. Prescriptions: New metronidazole 500 mg tablet 500 mg PO TID 3 Days Qty: 9 RF: 0 cefdinir 300 mg capsule 300 mg PO BID 3 Days Qty: 6 RF: 0 famotidine [Pepcid] 40 mg tablet 40 mg PO HS 7 Days Qty: 7 RF: 0 Continued alprazolam [Xanax] 0.5 mg Tablet 0.5 mg PO DAILY PRN (Reason: Anxiety) RF: 0 benazepril 20 mg Tablet 20 mg PO QAM RF: 0 levothyroxine 200 mcg Tablet 200 mcg PO QAM RF: 0 albuterol sulfate [ProAir HFA] 90 mcg/actuation Hfa Aerosol Inhaler 1 puff INHALATION Q6H PRN (Reason: Shortness Of Breath) RF: 0 fluticasone propionate [Flonase Allergy Relief] 50 mcg/actuation [place],Suspension 1 spray INTRANASAL HS RF: 0 cholecalciferol (vitamin D3) [Vitamin D3] 2,000 unit Capsule 1,000 unit PO DAILY RF: 0 loratadine-pseudoephedrine [Claritin-D 24 Hour] 10-240 mg tablet extended release 24 hr 1 tab PO HS RF: 0 benazepril 10 mg tablet 10 mg PO HS PRN (Reason: Blood Pressure) RF: 0 morphine 30 mg tablet extended release 30 mg PO Q12H RF: 0 acetaminophen [Tylenol 8 Hour] 650 mg Tablet Extended Release 1,300 mg PO BID RF: 0 levothyroxine 50 mcg Tablet 50 mcg PO DAILY RF: 0 turmeric 400 mg Capsule PO DAILY RF: 0 Stand-Alone Forms: [employer]/Other Patient Handouts: Diabetes Type 2 Coping, Diabetes Meal Planning Discharge Orders: Discharge Order (Routine); Ordered 12/09/18 Ordered By: Lucía Jimenez Admission Data Admit Date/Time: 12/05/18 06:41 Attending Provider: Angelo Jack Admit Provider: Nikki Arevalo Primary Care Provider: Aidan Ledbetter Other Providers: Nikki Arevalo Service: Medical Other [place] Date/Time DO NOT enter until pt leaves facility: 12/09/18 12:20 Supervising Physician Co-Signing Physician Notes I personally examined the patient and verified all jasmine points of history and exam, discussed case, and agree with decision making with Dr Jimenez. Feeling better. Stomach not yet perfect, but feels like she is up to going home. Vitals noted, in general she is awake and alert, anxious somewhat fatigued appearing but brighter than yesterday. HEENT normocephalic atraumatic mucous membranes moist. Breathing unlabored no accessory muscle use good effort. Nausea vomiting diarrheamost likely an infectious enteritis, possibly food poisoning mediated from her Burger Tong burger. Improving. Stable for home to finish out a course of p.o. antibiotics. Outpatient follow-up. Postprandial pain/nauseaappears to be a postinfectious gastritis. Slowly improving. Low back pain/fibromyalgia flarecontinue current pain control and supportive care, hopefully home soon will help in increasing mobility. On 12 08, had extensive discussion on the rationale and probable efficacy (based on my prior experiences) of a trial of OMT. DVT prophylaxisheparin subcu utilized during her stay Stable for discharge to home Resident Activity Tracking Resident Involvement: Resident Care Provided Care Provided: Adult Hospital Medicine
--- NOTE | 2018-12-08 18:50 | Family Medicine Progress Note ---
Date of Service December 08, 2018 Assessment & Plan (1) Vomiting: Ms. Jose is a 68 year old morbidly obese woman with baseline chronic back pain on morphine at home who presented with a likely gastroenteritis. N/V/D and abdominal pain -Pt presented with gastroenteritis picture, N/V/D after having a cheeseburger. -Abdomen with tenderness and guarding. -CT withOUT contrast 12/06-with colitis picture; less likely mesenteric ischemia given presenting symptoms -WBC stabilized currently, but still elevated -continue ceftriaxone and flagyl (pt allergic to cipro) -cont NSS at 125 for dehydration given the hx of diarhhea, zofran for nausea -Decreased urinary output Hx; frank placed. -UA unremarkable, urine culture pending Hand swelling -hand swelling this AM -likely due to fluids -continue NSS at 125 due to denhdration from gastroenteritis above Back Pain -Continuing morphine, lidocaine patch -will continue to monitor Failure to Thrive -Patient lives alone; limited ambulation due to back pain -PT/OT-appreciate recs- referral to [facility] placed F/E/N: NSS@80. Diabetic diet DVT PPx: lovenox Dispo: [facility]. Supervising Physician Co-Signing Physician Notes I personally examined the patient and verified all jasmine points of history and exam, discussed case, and agree with decision making with Dr Jimenez. Main complaints today are postprandial nausea little bit of postprandial pain and cramping. Vitals noted, in general she is awake and alert, anxious somewhat fatigued appearing but brighter than yesterday. HEENT normocephalic atraumatic mucous membranes moist. Breathing unlabored no accessory muscle use good effort. Abdomen less distended. Epigastric tenderness without guarding or rebound. Nausea vomiting diarrheamost likely an infectious enteritis, possibly food poisoning mediated from her [employer] burger. Improving. Continue Rocephin and Flagyl. Postprandial pain/nauseaappears to be a postinfectious gastritis. PPI/H2/GI cocktail/supportive care Low back pain/fibromyalgia flarecontinue current pain control and supportive care, hopefully home soon will help in increasing mobility. Extensive discussion on the rationale and probable efficacy (based on my prior experiences) of a trial of OMT. DVT prophylaxisheparin subcu Subjective Ms. Jose states she had an uncomfortable night. However nausea, abd pain and diarrhea have improved. Denies CALDWELL, chest pain, SOB, palps, constipation, dysuria, hematuria. Review of Systems Review of Systems: All systems reviewed & are unremarkable except as noted in HPI & below Physical Exam Physical Exam: General: Alert, oriented, morbidly obese pleasant woman laying in bed. HEENT: NC/AT, PERRLA, EOMI, oropharynx moist. Chest: Nontender to palpation. CV: RRR, Normal s1, s2. No murmurs appreciated Resp: Breath sounds clear bilaterally but decreased due to habitus, no increased effort of breathing. No crackles/rhonchi/rales. Abdomen: Soft, diffusely tender with guarding, some suprapubic tenderness. Extremities: Edema noted in lower extremities bilaterally. Results & Data Vital Signs (Past 12 Hours) Vital Signs Temp Pulse Resp BP BP Pulse Ox 12/08/18 16:14 36.6 C 98 H 20 153/71 H 157/67 H 95 12/08/18 15:02 36.6 C 20 153/71 H 95 Laboratory Results Laboratory Results - last 24 hr 12/07/18 12/08/18 12/08/18 20:06 06:43 06:43 WBC 15.91 H RBC 4.46 Hgb 13.2 Hct 41.0 MCV 91.9 MCH 29.6 MCHC 32.2 RDW Std Deviation 50.7 H RDW Coeff of Elizabeth 15.0 H Plt Count 206 MPV 9.1 Immature Gran % (Auto) 0.3 Neut % (Auto) 73.7 Lymph % (Auto) 17.7 Deuel % (Auto) 7.3 Eos % (Auto) 0.9 Baso % (Auto) 0.1 Immature Gran # (Auto) 0.05 H Neut # (Auto) 11.72 H Lymph # (Auto) 2.81 Deuel # (Auto) 1.16 H Eos # (Auto) 0.15 Baso # (Auto) 0.02 APTT 29.9 PTT Ratio 1.1 Sodium Potassium Chloride Carbon Dioxide Anion Gap BUN Creatinine Est Cr Clr Drug Dosing Est GFR ( Amer) Est GFR (Non-Af Amer) BUN/Creatinine Ratio Glucose POC Glucose 158 H Calcium Total Bilirubin AST ALT Alkaline Phosphatase Total Protein Albumin Globulin Albumin/Globulin Ratio 12/08/18 12/08/18 12/08/18 06:43 07:57 11:57 WBC RBC Hgb Hct MCV MCH MCHC RDW Std Deviation RDW Coeff of Elizabeth Plt Count MPV Immature Gran % (Auto) Neut % (Auto) Lymph % (Auto) Deuel % (Auto) Eos % (Auto) Baso % (Auto) Immature Gran # (Auto) Neut # (Auto) Lymph # (Auto) Deuel # (Auto) Eos # (Auto) Baso # (Auto) APTT PTT Ratio Sodium 140 Potassium 3.4 L Chloride 106 Carbon Dioxide 29 Anion Gap 5.0 BUN 7 Creatinine 0.65 Est Cr Clr Drug Dosing 106.3 Est GFR ( Amer) 106.5 Est GFR (Non-Af Amer) 91.9 BUN/Creatinine Ratio 10.9 Glucose 122 H POC Glucose 97 105 H Calcium 7.9 L Total Bilirubin 0.5 AST 9 L ALT 12 Alkaline Phosphatase 108 Total Protein 6.5 Albumin 2.2 L Globulin 4.3 H Albumin/Globulin Ratio 0.5 L 12/08/18 16:50 WBC RBC Hgb Hct MCV MCH MCHC RDW Std Deviation RDW Coeff of Elizabeth Plt Count MPV Immature Gran % (Auto) Neut % (Auto) Lymph % (Auto) Deuel % (Auto) Eos % (Auto) Baso % (Auto) Immature Gran # (Auto) Neut # (Auto) Lymph # (Auto) Deuel # (Auto) Eos # (Auto) Baso # (Auto) APTT PTT Ratio Sodium Potassium Chloride Carbon Dioxide Anion Gap BUN Creatinine Est Cr Clr Drug Dosing Est GFR ( Amer) Est GFR (Non-Af Amer) BUN/Creatinine Ratio Glucose POC Glucose 95 Calcium Total Bilirubin AST ALT Alkaline Phosphatase Total Protein Albumin Globulin Albumin/Globulin Ratio Medications Administered Home Medications albuterol sulfate [ProAir HFA] 1 puff INHALATION Q6H PRN 02/17/18 [History Confirmed 12/05/18] alprazolam [Xanax] 0.5 mg PO DAILY PRN 02/17/18 [History Confirmed 12/05/18] benazepril 20 mg PO QAM 02/17/18 [History Confirmed 12/05/18] cholecalciferol (vitamin D3) [Vitamin D3] 1,000 unit PO DAILY 02/17/18 [History Confirmed 12/05/18] fluticasone propionate [Flonase Allergy Relief] 1 spray INTRANASAL HS 02/17/18 [History Confirmed 12/05/18] levothyroxine 200 mcg PO QAM 02/17/18 [History Confirmed 12/05/18] acetaminophen [Tylenol 8 Hour] 1,300 mg PO BID 10/04/18 [History Confirmed 12/05/18] benazepril 10 mg PO HS PRN 10/04/18 [History Confirmed 12/05/18] loratadine-pseudoephedrine [Claritin-D 24 Hour] 1 tab PO HS 10/04/18 [History Confirmed 12/05/18] morphine 30 mg PO Q12H 10/04/18 [History Confirmed 12/05/18] levothyroxine 50 mcg PO DAILY 12/05/18 [History Confirmed 12/05/18] turmeric 0 mg PO DAILY 12/05/18 [History Confirmed 12/05/18] cefdinir 300 mg PO BID 3 Days #6 cap 12/08/18 [Rx] famotidine [Pepcid] 40 mg PO HS 7 Days #7 tab 12/08/18 [Rx] metronidazole 500 mg PO TID 3 Days #9 tab 12/08/18 [Rx] Active Medications Acetaminophen (Tylenol) 1,000 mg PO BID@1100,2200 [facility] Stop: 01/04/19 10:59 Last Admin: 12/05/18 11:57 Dose: 1,000 mg Documented by: Acetaminophen (Tylenol) 650 mg PO Q4H PRN PRN Reason: pain/fever Stop: 01/04/19 08:10 Last Admin: 12/08/18 18:49 Dose: 650 mg Documented by: Acetaminophen (Tylenol) 650 mg PO TID [facility] Stop: 01/04/19 20:59 Last Admin: 12/08/18 14:57 Dose: 650 mg Documented by: Albuterol (Ventolin Hfa) 1 puffs INH Q6H PRN PRN Reason: Shortness Of Breath Stop: 01/04/19 08:10 Alprazolam (Xanax) 0.5 mg PO Q12 PRN PRN Reason: Anxiety Stop: 01/04/19 08:10 Last Admin: 12/08/18 18:49 Dose: 0.5 mg Documented by: Aspirin (Ecotrin Ectab) 81 mg PO DAILY [facility] Stop: 01/04/19 08:59 Last Admin: 12/08/18 07:33 Dose: 81 mg Documented by: Dextrose (Dextrose 50%) 25 - 50 ml IV UD PRN; Protocol PRN Reason: Hypoglycemia Protocol Stop: 01/04/19 08:10 Dicyclomine HCl (Bentyl) 10 mg PO QID [facility] Stop: 01/04/19 08:59 Last Admin: 12/08/18 16:55 Dose: 10 mg Documented by: Docusate Sodium (Colace) 100 mg PO BID PRN PRN Reason: Constipation Stop: 01/04/19 08:10 Last Admin: 12/07/18 21:12 Dose: 100 mg Documented by: Enalapril Maleate (Vasotec) 20 mg PO QAM [facility] Stop: 01/04/19 08:59 Last Admin: 12/08/18 07:33 Dose: 20 mg Documented by: Famotidine (Pepcid) 20 mg PO BID [facility] Stop: 01/07/19 13:29 Last Admin: 12/08/18 14:14 Dose: 20 mg Documented by: Fluticasone Propionate (Flonase) 1 sprays NA HS [facility] Stop: 01/04/19 20:59 Last Admin: 12/07/18 20:07 Dose: 1 sprays Documented by: Glucagon (Glucagen) 1 mg SQ UD PRN; Protocol PRN Reason: Hypoglycemia Protocol Stop: 01/04/19 08:10 Glucose (Dex4 Glucose) 4 - 8 tabs PO UD PRN; Protocol PRN Reason: Hypoglycemia Protocol Stop: 01/04/19 08:10 Glucose (Glucose 40%) 15 - 30 gm PO UD PRN; Protocol PRN Reason: Hypoglycemia Protocol Stop: 01/04/19 08:10 Heparin Sodium (Porcine) (Heparin Sodium (Porcine)) 5,000 units SQ Q8 [facility] Stop: 01/04/19 13:59 Last Admin: 12/08/18 14:55 Dose: 5,000 units Documented by: Sodium Chloride (Nss 1000ml) 1,000 mls @ 125 mls/hr IV .Q8H [facility] Stop: 01/05/19 13:14 Last Admin: 12/08/18 14:54 Dose: 125 mls/hr Documented by: Insulin Aspart (Novolog Flexpen) 0 units SC ACHS [facility] Stop: 01/04/19 08:10 Last Admin: 12/08/18 18:44 Dose: 1 units Documented by: Levothyroxine Sodium (Synthroid) 200 mcg PO DAILYBB [facility] Stop: 01/04/19 08:59 Last Admin: 12/08/18 05:35 Dose: 200 mcg Documented by: Levothyroxine Sodium (Synthroid) 50 mcg PO DAILYBB [facility] Stop: 01/04/19 08:59 Last Admin: 12/08/18 05:35 Dose: 50 mcg Documented by: Lidocaine (Lidoderm 5%) 1 patch TD QAM LITTLE Stop: 01/04/19 20:59 Last Admin: 12/08/18 07:33 Dose: 1 patch Documented by: Loratadine/Pseudoephedrine Sulfate (Claritin-D 24 Hour) 1 tab PO HS LITTLE Stop: 01/04/19 20:59 Last Admin: 12/07/18 20:07 Dose: 1 tab Documented by: Miscellaneous (Carbohydrates For Hypoglycemia) 15 - 30 gm PO UD PRN PRN Reason: Hypoglycemia Treatment Stop: 01/04/19 08:10 Miscellaneous (Remove Lidoderm Patch) 1 ea N/A DAILY@2100 LITTLE Stop: 01/05/19 05:59 Last Admin: 12/07/18 20:08 Dose: 1 ea Documented by: Morphine Sulfate (Ms Contin) 30 mg PO Q12 LITTLE Stop: 12/19/18 08:10 Last Admin: 12/08/18 08:57 Dose: 30 mg Documented by: Morphine Sulfate (Morphine Sulfate) 2 mg IV Q4H PRN PRN Reason: Pain Stop: 12/19/18 08:10 Last Admin: 12/08/18 17:06 Dose: 2 mg Documented by: Ondansetron HCl (Zofran) 4 mg IV Q6H PRN PRN Reason: Nausea Stop: 01/04/19 08:10 Last Admin: 12/08/18 11:32 Dose: 4 mg Documented by: Pantoprazole Sodium (Protonix) 40 mg PO BID LITTLE Stop: 12/12/18 09:01 Simethicone (Mylicon) 80 mg PO Q6H PRN PRN Reason: gas pain Stop: 01/04/19 08:10 Last Admin: 12/07/18 21:16 Dose: 80 mg Documented by: Vitamin D (Vitamin D3) 1,000 units PO DAILY LITTLE Stop: 01/04/19 08:59 Last Admin: 12/08/18 07:33 Dose: 1,000 units Documented by: PG Care Time/CCT Total # of Minutes Spent Total Time Spent with Patient: Total time spent is greater than 50% in coordination of care (as documented) at patient's floor/unit and/or counseling patient: Resident Activity Tracking Resident Involvement: Resident Care Provided Care Provided: Adult Hospital Medicine (1) Vomiting Nausea presence: with nausea Vomiting Intractability: intractable Vomiting type: unspecified Qualified Code(s): R11.2 - Nausea with vomiting, unspecified
[2018-12-08] MEDS: PANTOprazole 40 MG TAB PO SCH (21:05)
[2018-12-08] MEDS: FLUTICASONE PROPIONATE NA SPR 16 GM BTL SCH (21:14)
[2018-12-08] MEDS: LORATADINE/PSEUDOEPHEDRINE 1 TABCR PO SCH (21:14)
[2018-12-08] MEDS: SIMETHICONE 80 MG CHEW PO PRN (21:20)
[2018-12-09] MEDS ORDERED: CALCIUM CARBONATE 500 MG CHEWABLE TAB PO STA ×2 (00:06→00:36)
[2018-12-09] MEDS: MoRPHine SULFATE 2 MG/ML CARP IV PRN ×3 (01:21→09:14)
[2018-12-09] MEDS: ACETAMINOPHEN 325 MG TAB PO PRN (03:57)
[2018-12-09 06:18] LABS: Basophils # (auto) 0.03 K/uL (0-0.2); Basophils % (auto) 0.2 %; Eosinophils # (auto) 0.27 K/uL (0-0.5); Eosinophils % (auto) 1.9 %; Hematocrit (blood only) 40.5 % (37-47); Hemoglobin 13.3 g/dL (12.0-16.0); Immature Granulocytes # (auto) 0.05 K/uL (0.00-0.02); Immature Granulocytes % (auto) 0.4 %; Lymphocytes % (auto) 24.9 %; Mean Corpuscular Hemoglobin 30.2 pg (25-34); Mean Corpuscular Hgb Conc 32.8 g/dL (32-36); Mean Corpuscular Volume 91.8 fL (80-100); Monocytes # (auto) 0.93 K/uL (0.11-0.59); Monocytes % (auto) 6.6 %; Neutrophils # (auto) 9.29 K/uL (1.4-6.5); Platelet Count 238 K/uL (130-400); RDW Coefficient of Variation 14.9 % (11.5-14.5); RDW Standard Deviation 50.4 fL (36.4-46.3); Red Blood Count 4.41 M/uL (4.2-5.4); White Blood Count 14.07 K/uL (4.8-10.8)
[2018-12-09] MEDS: HEPARIN SOD 5,000 UNIT/0.5 ML VIAL SQ SCH (06:19)
[2018-12-09] MEDS: LEVOTHYROXINE SODIUM 200 MCG TABLET PO SCH (06:20)
[2018-12-09] MEDS: LEVOTHYROXINE SODIUM 50 MCG TABLET PO SCH (06:20)
[2018-12-09 06:45] LABS: Albumin Level 2.4 gm/dl (3.4-5.0); BUN Creatinine Ratio 9.3 (10-20); Calcium 8.1 mg/dl (8.5-10.1); Creatinine Clr Calc Pharmacy 117.1 ml/min; Est GFR (African American) 109.9; Est GFR (Non-African American) 94.8; Potassium 3.5 mmol/L (3.5-5.1)
[2018-12-09 06:48] LABS: Albumin Globulin Ratio 0.6 (0.9-2); Bilirubin,Total 0.5 mg/dl (0.2-1); Total Protein 6.4 gm/dl (6.4-8.2)
[2018-12-09] MEDS: SODIUM CHLORIDE 0.9% 1000ML 1,000 ML IV SCH (08:30)
[2018-12-09] MEDS: LIDOCAINE 5% 1 PATCH TD SCH (08:34)
[2018-12-09] MEDS: ASPIRIN 81 MG ECTAB PO SCH (08:35)
[2018-12-09] MEDS: INSULIN ASPART 100 UNITS/ML 3 ML PEN SC SCH (08:35)
[2018-12-09] MEDS: MoRPHine SULFATE CR 15 MG TABCR PO SCH (08:35)
[2018-12-09] MEDS: PANTOprazole 40 MG TAB PO SCH (08:35)
[2018-12-09] MEDS: FAMOTIDINE 20 MG TAB PO SCH (08:35)
[2018-12-09] MEDS: CHOLECALCIFEROL 1,000 UNITS TAB PO SCH (08:35)
[2018-12-09] MEDS: DICYCLOMINE HCL 10 MG CAP PO SCH (08:35)
[2018-12-09] MEDS: ENALAPRIL MALEATE 10 MG TAB PO SCH (08:35)
[2018-12-09] MEDS: ACETAMINOPHEN 325 MG TAB PO SCH (09:14)
--- NOTE | 2019-02-23 06:45 | Coding Query ---
CODING QUERY To promote full compliance with coding requirements relating to patient care, provider participation is requested in all cases of manager speech uncertainty. Please assist us with the question(s) below: Coding Question(s): Patient presents to hospital with nausea,vomiting and diarrhea after eating a cheeseburger. CT Abdomen results showed thickening of the colon, mesenteric ischemia ruled out. 12/08 progress note stated infectious gastroenteritis possibly mediated by food. DS stated " Colitis". Seeking to clarify the etiology of the Colitis. Please check below any and all phrases that apply. Thanks for your help! Jesse Douglas LAMINA SEARCHER [facility] Physician's Response(s): ___x Patient has infectious colitis x___ Patient has possible food mediated poisoning please see my attending physician attestation to dr nascimento's notes. appears to have been infectious/food poisoning most likely related to liudmila truong. Cannot Clinically correlate if patient has infectious colitis and/or food poisoning Other: Please document: Principal Diagnosis: "that condition established after study, to be chiefly responsible for occasioning the admission of the patient to the hospital for care." Co-Existing Principal Diagnosis: "when two or more diagnoses equally meet the criteria for principal diagnosis as determined by the circumstances of admission, diagnostic work up, and/or therapy provided, and the Alphabetic Index, Tabular List, or another coding guideline does not provide sequencing direction, any one of the diagnoses may be sequenced first." "When the physician has documented what appears to be a current diagnosis in the body of the record, but has not included the diagnosis in the final diagnostic statement, the physician should be asked whether the diagnosis should be added." (Source [facility]oding [facility] 2 QTR90. p3-4) ONELIA
== END 2018-12-09 12:20 | disposition home health service (06) | DRG 918 ==
LOC: ED 03:19 → SUATTDRO 06:41 → 2N 06:41 → 4W 22:35

== ENCOUNTER 2020-11-10 21:57 | Inpatient (IN) ==
--- NOTE | 2020-11-10 22:22 | Emergency Department Note ---
Impression & Plan Chest pain ED Provider Note NAME: MARIZA PRINCE AGE: 70 SEX: F : 1950 ARRIVES VIA: Ambulance INFORMANT: Patient, ED PROVIDER(S): Aidan Andrea DO CHIEF COMPLAINT: Chest pain HPI: The patient is a 70-year-old female who presented to the emergency department for an evaluation of chest pain. The patient describes anterior chest pain which radiates to both shoulders. She states that this began acutely this evening. The patient has a history of venous pulmonary embolism as well as fibromyalgia. The patient states that she has significant trouble breathing because of the pain. She denies having any worsening lower extremity swelling. She denies having any fevers or cough. The patient called 911. She was treated with nitroglycerin prior to arrival with no improvement of her symptoms. She denies having any cough or fever. She has had no abdominal pain. She denies having any back pain. She states the pain is more of a burning sensation. The patient has not seen her provider recently. The patient states she is been compliant with all of her outpatient medications. ROS: See above HPI for pertinent positives & negatives. A total of 10 systems reviewed and were otherwise negative. PAST MEDICAL HISTORY: See Below PAST SURGICAL HISTORY: See Below FAMILY HISTORY: See Below SOCIAL HISTORY: See Below HOME MEDICATIONS: See Below ALLERGIES: See Below VITALS: See Below PHYSICAL EXAMINATION: GENERAL: The patient is awake and alert. She is somewhat anxious appearing. EYES: The conjunctivae are clear. The pupils are round and reactive. EARS, NOSE, MOUTH AND THROAT: The nose is without any evidence of any deformity. Mucous membranes are moist. Tongue is midline. NECK: The neck is nontender and supple. RESPIRATORY: Normal respiratory effort is noted there is no evidence of wheezing rhonchi or rales CARDIOVASCULAR: Regular rate and rhythm noted there no murmurs rubs or gallops normal S1 normal S2. GASTROINTESTINAL: The abdomen is soft. Abdomen is nontender. MUSCULOSKELETAL/EXTREMITIES: There is no evidence of gross deformity full range of motion is noted in the hips and shoulders. SKIN: Skin is warm and dry. Trace pedal edema was noted bilaterally. NEUROLOGIC: Patient is awake alert and oriented x3. MEDICAL DECISION MAKING: The patient is a 70-year-old female who presented to the emergency department for an evaluation of chest pain. The patient describes anterior chest pain which radiates to both shoulders. Patient has a history of pulmonary embolism in the past. She does have some difficulty breathing. I discussed the patient's laboratory and radiographic studies with her. I discussed the limitations of the emergency department work-up for chest pain with her as well. The patient was treated with nitroglycerin prior to arrival. She did not want to have aspirin. She had a normal D-dimer. At this time EKG shows no acute change from previous and troponin was not elevated. Given the patient's risk factors I do feel she may require further inpatient work-up for this chest pain. This reason her case was referred to the [facility]. They were notified about the patient in the emergency department. Triage Nursing notes reviewed. Prior medical records reviewed Vital Signs: reviewed and remarkable for elevated blood pressure. Differential diagnosis: Cardiac ischemia, aortic dissection, pulmonary embolism, pneumothorax, pneumonia, pericarditis, myocarditis, esophageal rupture, GERD, cholecystitis, pancreatitis, musculoskeletal, as well as other pathologies. ER treatment provided: See below Diagnostics interpreted by me: ECG: EKG was obtained in the emergency department. My interpretation is sinus tachycardia at 111 bpm. There was no ectopy. There was no acute ST segment abnormalities. Poor R wave progression was noted. This was compared to a t racing from April 052018. No significant changes were noted. Cardiac Monitoring: An order was placed for continuous cardiac monitoring. The monitor shows a rate of 102 bpm with sinus tachycardia rhythm. Laboratory studies: As stated above and show below. Imaging studies: See below Consultation(s): Dr. Jamison was notified about the patient. He will evaluate the patient in the emergency department. Past Med/Surg History Medical History (Updated 11/11/20 @ 00:22 by Aidan Andrea DO) Anxiety Bronchitis CPAP (continuous positive airway pressure) dependence Diabetes mellitus, type 2 Elevated d-dimer Hepatitis C Hx of blood clots Hx of cancer of uterus Hx of sleep apnea Hypertension Hypothyroidism Lump/cyst? 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 Attendant Required: No Beliefs That Will Affect Care: None marital status: Single Current Living Situation: Alone Current Living Situation Comment: caregiver comes in 16 hours a week current occupational status: retired How many Children do You have: 1 Feels Safe at Home: Yes Childhood Exposure to Second-Hand Smoke: Yes (father smoked) caffeine: Yes (tea in morning ) Dental Care, Regularly: No Physical Activity Frequency: Does not Exercise Physical Activity Frequency Comment: states she wants to try to be more active Seatbelt Use: always Sunscreen Use: No (doesn't go in sun ) Assistive Devices: Walker Allergies Allergies Allergy/AdvReac Type Severity Reaction Status Date / Time adhesive Allergy Severe SKIN Verified 07/02/20 14:49 BLISTERS/RED-AND WITH EKG STICKERS latex Allergy Severe BLISTERS/RED Verified 07/02/20 14:49 SKIN meperidine Allergy Severe CAN NOT Verified 07/02/20 14:49 FUNCTION Bactrim Allergy Unknown THROAT AND Verified 10/26/17 13:37 TONGUE SWELL Cipro Allergy Unknown UNKNOWN Verified 10/26/17 13:37 REACTION ciprofloxacin Allergy Unknown UNKNOWN Verified 07/02/20 14:49 REACTION Iodinated Contrast Media Allergy Unknown REDNESS Verified 07/02/20 14:49 AND SWELLING iodine Allergy Unknown Swelling/Red Verified 07/02/20 14:49 Skin-TOPICAL OK sulfamethoxazole Allergy Unknown THROAT AND Verified 07/02/20 14:49 TONGUE SWELL trimethoprim Allergy Unknown THROAT AND Verified 07/02/20 14:49 TONGUE SWELL diazepam AdvReac Severe CAN NOT Verified 07/02/20 14:49 FUNCTION Unclassified Drugs Allergy Unknown ANY Uncoded 07/02/20 14:49 MYCINS-ITCHY THROAT SWELLING Home Meds Home Medications Medication Instructions Recorded Confirmed albuterol sulfate 90 mcg/actuation 1 puff INHALATION Q6H PRN 02/17/18 07/02/20 aerosol inhaler (ProAir HFA) alprazolam 0.5 mg tablet (Xanax) 0.5 mg PO DAILY PRN 02/17/18 07/02/20 benazepril 20 mg tablet 20 mg PO QAM 02/17/18 07/02/20 cholecalciferol (vitamin D3) 50 1,000 unit PO DAILY 02/17/18 07/02/20 mcg (2,000 unit) capsule (Vitamin D3) fluticasone propionate 50 1 spray INTRANASAL HS PRN 02/17/18 07/02/20 mcg/actuation nasal spray,suspension (Flonase Allergy Relief) levothyroxine 200 mcg tablet 200 mcg PO QAM 02/17/18 07/02/20 acetaminophen 650 mg 1,300 mg PO BID 10/04/18 07/02/20 tablet,extended release (Tylenol 8 Hour) benazepril 10 mg tablet 10 mg PO HS PRN 10/04/18 07/02/20 loratadine-pseudoephedrine ER 10 1 tab PO HS 10/04/18 07/02/20 mg-240 mg tablet,extended [id number] (Claritin-D 24 Hour) morphine 30 mg tablet,extended 30 mg PO Q4 10/04/18 07/02/20 release levothyroxine 50 mcg tablet 50 mcg PO DAILY 12/05/18 07/02/20 sodium chloride 0.65 % nasal spray 2 spray INTRANASAL QID PRN 04/05/19 07/02/20 aerosol (Saline Mist) apixaban 5 mg tablet (Eliquis) 5 mg PO BID 07/02/20 07/02/20 nystatin-triamcinolone 100,000 1 applic TOPICAL DAILY PRN 07/02/20 07/02/20 unit/gram-0.1 % topical ointment turmeric 400 mg capsule 400 mg PO DAILY cap 07/02/20 07/02/20 vitamin B complex (B 1 tab PO DAILY 07/02/20 07/02/20 Complex-Vitamin B12) Results & Data (ED) Vital Signs Vital Signs - 24 hr 11/10/20 22:22 11/10/20 23:03 Temperature 36.8 C Temperature Source Oral Pulse Rate 109 H Pulse Rate [Finger] 102 H Respiratory Rate 16 Blood Pressure 130/68 Blood Pressure [Right Arm] 146/74 H Blood Pressure Mean 88 Blood Pressure Mean [Right Arm] 98 Pulse Oximetry 97 99 Oxygen Delivery Method Room Air Sepsis Recent Fever Within 48 Hours No Sepsis New/Unexplained Change in Mental Status No Sepsis Action Taken by Nursing No Action Required Home Medications Current Medication List: was personally reviewed by me Laboratory Data Attestation: I reviewed the patient's lab results. Result diagrams: 11/10/20 22:05 11/10/20 22:05 Lab Results 11/10/20 11/10/20 11/10/20 Range/Units 22:05 22:05 22:05 WBC 13.72 H (4.8-10.8) K/uL RBC 5.01 (4.2-5.4) M/uL Hgb 14.5 (12.0-16.0) g/dL Hct 45.3 (37-47) % MCV 90.4 (80-100) fL MCH 28.9 (25-34) pg MCHC 32.0 (32-36) g/dL RDW Std Deviation 48.9 H (36.4-46.3) fL RDW Coeff of Elizabeth 14.8 H (11.5-14.5) % Plt Count 294 (130-400) K/uL MPV 8.9 (7.4-10.4) fL Immature Gran % (Auto) 0.2 % Neut % (Auto) 72.3 % Lymph % (Auto) 18.6 % [place] % (Auto) 7.3 % Eos % (Auto) 1.5 % Baso % (Auto) 0.1 % Neut # (Auto) 9.91 H (1.4-6.5) K/uL Lymph # (Auto) 2.55 (1.2-3.4) K/uL [place] # (Auto) 1.00 H (0.11-0.59) K/uL Eos # (Auto) 0.21 (0-0.5) K/uL Baso # (Auto) 0.02 (0-0.2) K/uL Immature Gran # (Auto) 0.03 H (0.00-0.02) K/uL PT 10.9 (9.0-12.0) Seconds INR 1.1 (0.9-1.1) APTT 32.1 H (21.0-31.0) Seconds PTT Ratio 1.2 D-Dimer 350 (0-500) ug/L FEU Sodium 136 (136-145) mmol/L Potassium 3.5 (3.5-5.1) mmol/L Chloride 97 L (98-107) mmol/L Carbon Dioxide 34 H (21-32) mmol/L Anion Gap 5.0 (3-11) BUN 13 (7-18) mg/dl Creatinine 0.91 (0.6-1.2) mg/dl Est Cr Clr Drug Dosing 72.9 ml/min Est GFR ( Amer) 74.6 ml/min Est GFR (Non-Af Amer) 64.4 ml/min BUN/Creatinine Ratio 13.9 (10-20) Glucose 172 H (70-99) mg/dl Calcium 9.1 (8.5-10.1) mg/dl Total Bilirubin 0.5 (0.2-1) mg/dl AST 11 L (15-37) U/L ALT 18 (12-78) U/L Alkaline Phosphatase 132 H (45-117) U/L Troponin I < 0.015 (0-0.045) ng/ml Total Protein 8.1 (6.4-8.2) gm/dl Albumin 3.0 L (3.4-5.0) gm/dl Globulin 5.1 H (2.5-4.0) gm/dl Albumin/Globulin Ratio 0.6 L (0.9-2) Lipase 29 L (73-393) U/L COVID-19 Eval Order 11/11/20 Range/Units 00:13 WBC (4.8-10.8) K/uL RBC (4.2-5.4) M/uL Hgb (12.0-16.0) g/dL Hct (37-47) % MCV (80-100) fL MCH (25-34) pg MCHC (32-36) g/dL RDW Std Deviation (36.4-46.3) fL RDW Coeff of Elizabeth (11.5-14.5) % Plt Count (130-400) K/uL MPV (7.4-10.4) fL Immature Gran % (Auto) % Neut % (Auto) % Lymph % (Auto) % [place] % (Auto) % Eos % (Auto) % Baso % (Auto) % Neut # (Auto) (1.4-6.5) K/uL Lymph # (Auto) (1.2-3.4) K/uL [place] # (Auto) (0.11-0.59) K/uL Eos # (Auto) (0-0.5) K/uL Baso # (Auto) (0-0.2) K/uL Immature Gran # (Auto) (0.00-0.02) K/uL PT (9.0-12.0) Seconds INR (0.9-1.1) APTT (21.0-31.0) Seconds PTT Ratio D-Dimer (0-500) ug/L FEU Sodium (136-145) mmol/L Potassium (3.5-5.1) mmol/L Chloride (98-107) mmol/L Carbon Dioxide (21-32) mmol/L Anion Gap (3-11) BUN (7-18) mg/dl Creatinine (0.6-1.2) mg/dl Est Cr Clr Drug Dosing ml/min Est GFR ( Amer) ml/min Est GFR (Non-Af Amer) ml/min BUN/Creatinine Ratio (10-20) Glucose (70-99) mg/dl Calcium (8.5-10.1) mg/dl Total Bilirubin (0.2-1) mg/dl AST (15-37) U/L ALT (12-78) U/L Alkaline Phosphatase (45-117) U/L Troponin I (0-0.045) ng/ml Total Protein (6.4-8.2) gm/dl Albumin (3.4-5.0) gm/dl Globulin (2.5-4.0) gm/dl Albumin/Globulin Ratio (0.9-2) Lipase (73-393) U/L COVID-19 Eval Order Covid19 at [facility] Administered Medications Discontinued Medications Morphine Sulfate (Morphine Sulfate 4 Mg/Ml 1 Ml Carp\Vial) 4 mg IV NOW STA Stop: 11/10/20 23:17 Last Admin: 11/10/20 23:30 Dose: 4 mg Documented by: [id number] Ondansetron HCl (Ondansetron Inj 2 Mg/Ml 2 Ml Vial) 4 mg IV NOW STA Stop: 11/10/20 23:17 Last Admin: 11/10/20 23:30 Dose: Not Given Documented by: [id number] Imaging Data Attestation: I personally reviewed and interpreted this imaging study as follows: My Impression: 1 view chest x-ray was obtained in the emergency department. My interpretation is elevation of the left hemidiaphragm. Tortuous aorta was noted. No definite infiltrate was noted. There was no free air. This was compared to a chest x-ray from March 212019. No significant changes were noted. Discharge Plan Visit Data Chief Complaint: Chest Pain Stated Complaint: CHEST PAIN/SHORT OF BREATH ED Provider: Aidan Andrea Discharge Problem: Chest pain Patient Disposition: Being Evaluated by Hospitalist Condition: Good Forms Stand Alone Forms: My [facility] Prescriptions Prescriptions: No Action vitamin B complex [B Complex-Vitamin B12] Tablet 1 tab PO DAILY RF: 0 Eliquis 5 mg tablet 5 mg PO BID RF: 0 nystatin-triamcinolone 100,000-0.1 unit/gram-% ointment 1 applic topical DAILY PRN (Reason: blisters on vaginal area ) RF: 0 alprazolam [Xanax] 0.5 mg Tablet 0.5 mg PO DAILY PRN (Reason: Anxiety) RF: 0 benazepril 20 mg Tablet 20 mg PO QAM RF: 0 levothyroxine 200 mcg Tablet 200 mcg PO QAM RF: 0 albuterol sulfate [ProAir HFA] 90 mcg/actuation Hfa Aerosol Inhaler 1 puff INHALATION Q6H PRN (Reason: Shortness Of Breath) RF: 0 fluticasone propionate [Flonase Allergy Relief] 50 mcg/actuation [place],Suspension 1 spray INTRANASAL HS PRN (Reason: Nasal Congestion) RF: 0 cholecalciferol (vitamin D3) [Vitamin D3] 2,000 unit Capsule 1,000 unit PO DAILY RF: 0 loratadine-pseudoephedrine [Claritin-D 24 Hour] 10-240 mg tablet extended release 24 hr 1 tab PO HS RF: 0 benazepril 10 mg tablet 10 mg PO HS PRN (Reason: Blood Pressure) RF: 0 morphine 30 mg tablet extended release 30 mg PO Q4 RF: 0 acetaminophen [Tylenol 8 Hour] 650 mg Tablet Extended Release 1,300 mg PO BID RF: 0 levothyroxine 50 mcg Tablet 50 mcg PO DAILY RF: 0 turmeric 400 mg capsule 400 mg PO DAILY RF: 0 sodium chloride [Saline Mist] 0.65 % Aerosol,[place] 2 spray INTRANASAL QID PRN (Reason: NASAL DRYNESS) RF: 0 Referrals Referrals: PCP,NO [Primary Care Provider] -
[2020-11-10 22:23] LABS: Basophils # (auto) 0.02 K/uL (0-0.2); Basophils % (auto) 0.1 %; Eosinophils # (auto) 0.21 K/uL (0-0.5); Eosinophils % (auto) 1.5 %; Hematocrit (blood only) 45.3 % (37-47); Hemoglobin 14.5 g/dL (12.0-16.0); Immature Granulocytes # (auto) 0.03 K/uL (0.00-0.02); Immature Granulocytes % (auto) 0.2 %; Lymphocytes # (auto) 2.55 K/uL (1.2-3.4); Lymphocytes % (auto) 18.6 %; Mean Corpuscular Hemoglobin 28.9 pg (25-34); Mean Corpuscular Volume 90.4 fL (80-100); Mean Platelet Volume 8.9 fL (7.4-10.4); Monocytes % (auto) 7.3 %; Neutrophils # (auto) 9.91 K/uL (1.4-6.5); Neutrophils % (auto) 72.3 %; Platelet Count 294 K/uL (130-400); RDW Coefficient of Variation 14.8 % (11.5-14.5); RDW Standard Deviation 48.9 fL (36.4-46.3); Red Blood Count 5.01 M/uL (4.2-5.4); White Blood Count 13.72 K/uL (4.8-10.8)
[2020-11-10 22:40] LABS: Alanine Aminotransferase 18 U/L (12-78); Aspartate Aminotransferase 11 U/L (15-37); BUN Creatinine Ratio 13.9 (10-20); Blood Urea Nitrogen 13 mg/dl (7-18); Calcium 9.1 mg/dl (8.5-10.1); Carbon Dioxide 34 mmol/L (21-32); Chloride 97 mmol/L (98-107); Creatinine Clr Calc Pharmacy 72.9 ml/min; Est GFR (African American) 74.6 ml/min; Est GFR (Non-African American) 64.4 ml/min; Glucose 172 mg/dl (70-99); Lipase 29 U/L (73-393); Potassium 3.5 mmol/L (3.5-5.1); Sodium 136 mmol/L (136-145)
[2020-11-10 22:42] LABS: D Dimer 350 ug/L FEU (0-500); INR 1.1 (0.9-1.1); Partial Thromboplastin Ratio 1.2; Partial Thromboplastin Time 32.1 Seconds (21.0-31.0); Prothrombin Time 10.9 Seconds (9.0-12.0)
[2020-11-10 22:44] LABS: Albumin Globulin Ratio 0.6 (0.9-2); Alkaline Phosphatase 132 U/L (45-117); Bilirubin,Total 0.5 mg/dl (0.2-1); Globulin 5.1 gm/dl (2.5-4.0); Total Protein 8.1 gm/dl (6.4-8.2); Troponin I < 0.015 ng/ml (0-0.045)
[2020-11-10] MEDS ORDERED: ONDANSETRON INJ 2 MG/ML 2 ML VIAL IV STA (23:16)
[2020-11-10] MEDS ORDERED: MoRPHine SULFATE 4 MG/ML 1 ML CARP\\VIAL IV STA (23:16)
[2020-11-11] MEDS ORDERED: HYDROmorphone INJ 0.5 MG/0.5 ML SYR IV STA ×4 (00:49→07:37)
--- NOTE | 2020-11-11 00:57 | History & Physical Report ---
Date of Service November 11, 2020 Assessment & Plan (1) Chest pain: Plan: Mrs. Jose is a 70 yo woman who presented for evaluation of sudden onset central chest pain, admitted for ACS rule out. - Etiology uncertain: cardiac vs. gastrointestinal vs. musculoskeletal - Heart Score of 4, moderate risk. Initial trop undetectable. trend serial trops. EKG without acute ST segment changes. Will hold off on Echo/cards consult on admission - add if patient bumps a trop or has ST segment changes. - I will order a chest CT (cannot order a CTA as patient as iodinated contrast allergy) to assess for possible recurrent pulmonary embolism given history of multiple PEs in the past and ongoing tachycardia (although on anticoagulation, it is possible patient has failure of eliquis). - famotidine 20mg IV ordered in the event acid reflux/peptic ulcer disease is origin - it is also possible pain represents a 'flare' of her underlying fibromyalgia. (2) Dyslipidemia: Plan: - am lipid panel ordered - not currently on a cholestrol lowering agent (3) Type 2 diabetes mellitus: Plan: - most recent HbA1c was at goal at 7.2 in 07/2020 (per [facility] records). Goal < 7.5. - repeat HbA1c in am - continue home regimen of metformin 500mg BID - diabetic diet - continue ayden inhibitor - patient is not on a statin (4) Pulmonary embolism: Plan: - history of x 2 - on chronic anticoagulation with eliquis - non-contrast chest CT as above - may consider b/l venous duplex and VQ scan in am if suspion remains high (5) Metabolic alkalosis: Plan: - serum bicarb mildly elevated to 34 - suspect this is due to chronic loop diuretic therapy (on Bumex) vs. compensatory to a possible respiratory acidosis prior to admission (patient reported shallow breathing due to worsening pain on inspiration). No history of diarrhea. BUN not elevated, contraction alkalosis unlikely. - trend BMP (6) Fibromyalgia: Plan: - chronic - continue home morphine regimen - dilaudid prn for breaththrough pain (7) Hypothyroid: Plan: - continue home dose levothyroxine (8) Sleep apnea: Plan: - CPAP qhs DVT ppx: On eliqus Diet: Heart Healthy, Carb Consistent DM2 Dispo: Med/tele Code: Full, I discussed with patient History of Present Illness Primary Care Provider: NO PCP Ms. Jose is a 70 yo woman with a PMHx of type II diabetes mellitus, HLD, and morbid obesity who presents today for evaluation of sudden onset central chest pain. The pain came on ~ 5pm last night, about a half hour after eating dinner, when she was sitting in a chair crocheting. She describes it as substernal, radiating to the back between her shoulder blades. Does not travel up to the jaw or down the arm. She states that ambulating and attempting to take a deep breath make the pain worse. For this reason, she has been intentionally trying to take shallow breaths. She was given nitroglycerin on her way to the hospital, but it did not result in any improvement. She was in her usual state of health prior to the onset of the pain - ie no fevers/chills, cold symptoms. She has been seen by Dr. Coronel at [facility] in [place]. She states she has "fluid around her heart." She has a planned cardiac catheterization on 11/27/20 with him. She does have a history of pulmonary emboli x 2 - she is anticoagulated on Eliquis. She denies any history of acid reflux/gastric ulcers. She is on chronic morphine therapy for her history of fibromyalgia. Social Hx: No etoh, lifetime non-smoker. Family Hx: sister had a heart attack, she is unsure of at what age In the ED, she was afebrile with a tachycardic rate; BP 157/80 Breathing well on room air. Her WBC was mildly elevated to 13. Her CBC was otherwise WNL. Her kidney function was normal. Bicarb was mildly increased to 34. Trop was undetectable. D-Dimer not elevated. Lipase not elevated. COVID 19 neg. EKG showing sinus tachycardia, poor R wave progression, but no acute ST segment changes. CXR showing no pneumothorax, no consolidation. She was given 4mg IV morphine and a dose of Zofran, without improvement in her pain. Allergies Allergy/AdvReac Type Severity Reaction Status Date / Time adhesive Allergy Severe SKIN Verified 11/11/20 00:38 BLISTERS/RED-AND WITH EKG STICKERS latex Allergy Severe BLISTERS/RED Verified 11/11/20 00:38 SKIN meperidine Allergy Severe CAN NOT Verified 11/11/20 00:38 FUNCTION Bactrim Allergy Unknown THROAT AND Verified 10/26/17 13:37 TONGUE SWELL Cipro Allergy Unknown UNKNOWN Verified 10/26/17 13:37 REACTION ciprofloxacin Allergy Unknown UNKNOWN Verified 11/11/20 00:38 REACTION Iodinated Contrast Media Allergy Unknown REDNESS Verified 11/11/20 00:38 AND SWELLING iodine Allergy Unknown Swelling/Red Verified 11/11/20 00:38 Skin-TOPICAL OK sulfamethoxazole Allergy Unknown THROAT AND Verified 07/02/20 14:49 TONGUE SWELL trimethoprim Allergy Unknown THROAT AND Verified 07/02/20 14:49 TONGUE SWELL clindamycin Allergy Unknown Verified 11/12/20 09:23 erythromycin base Allergy MEDS Verified 11/12/20 09:24 ENDING IN "MYCIN" diazepam AdvReac Severe CAN NOT Verified 07/02/20 14:49 FUNCTION MEDS ENDING IN MYCIN Allergy Severe ITCHING, Uncoded 11/11/20 00:37 SWELLING Unclassified Drugs Allergy Unknown ANY Uncoded 07/02/20 14:49 MYCINS-ITCHY THROAT SWELLING Home Medications Medication Instructions Recorded Confirmed Type albuterol sulfate 90 mcg/actuation 1 - 2 puff INHALATION Q6H PRN 02/17/18 11/11/20 History aerosol inhaler (ProAir HFA) alprazolam 0.5 mg tablet (Xanax) 0.5 mg PO QID PRN 02/17/18 11/11/20 History cholecalciferol (vitamin D3) 50 3,000 unit PO DAILY 02/17/18 11/11/20 History mcg (2,000 unit) capsule (Vitamin D3) fluticasone propionate 50 1 spray INTRANASAL HS PRN 02/17/18 11/11/20 History mcg/actuation nasal spray,suspension (Flonase Allergy Relief) acetaminophen 650 mg 1,300 mg PO BID 10/04/18 11/11/20 History tablet,extended release (Tylenol 8 Hour) loratadine-pseudoephedrine ER 10 1 tab PO HS 10/04/18 11/11/20 History mg-240 mg tablet,extended [id number] (Claritin-D 24 Hour) apixaban 5 mg tablet (Eliquis) 5 mg PO BID 07/02/20 11/11/20 History vitamin B complex (B 1 tab PO DAILY 07/02/20 11/11/20 History Complex-Vitamin B12) bumetanide 1 mg tablet 1 mg PO BID 11/11/20 11/11/20 History clobetasol 0.05 % topical cream 1 applic TOPICAL UD 11/11/20 11/11/20 History cyanocobalamin (vitamin B-12) 0 mcg PO DAILY 11/11/20 11/11/20 History 1,000 mcg tablet (Vitamin B-12) ipratropium 20 mcg-albuterol 100 1 puff INHALATION QID PRN 11/11/20 11/11/20 History mcg/actuation mist for inhalation (Combivent Respimat) ketoconazole 2 % topical cream 1 applic TOPICAL BID PRN 11/11/20 11/11/20 History levothyroxine 300 mcg tablet 300 mcg PO DAILY 11/11/20 11/11/20 History metformin 500 mg tablet 500 mg PO BIDM 11/11/20 11/11/20 History morphine 30 mg immediate release 30 mg PO Q4 11/11/20 11/11/20 History tablet sodium chloride 0.65 % nasal spray 2 spray INTRANASAL Q24W PRN 11/11/20 11/11/20 History aerosol (Saline Mist) triamcinolone acetonide 0.1 % 1 applic TOPICAL UD PRN 11/11/20 11/11/20 History topical ointment Past Med/Surg History Medical History (Updated 11/12/20 @ 15:04 by Faith Sanchez PA-C) Anxiety Bronchitis CPAP (continuous positive airway pressure) dependence Diabetes mellitus, type 2 Elevated d-dimer Hepatitis C Hx of blood clots Hx of cancer of uterus Hx of sleep apnea Hypertension Hypothyroidism Lump/cyst? 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) don't know if the right twiested kideny functions Surgical History Hx of hysterectomy Family History Other Family history non-contributory Social History Smoking Status: Never smoker Second Hand Exposure: No; Hx Alcohol Use: No Hx Substance Use: No Preferred Language: Kenyan Communication Ability: Effective Visual Impairment: Limited Hearing Ability: Normal Event Sales Manager Required: No Beliefs That Will Affect Care: None marital status: Current Living Situation: Alone Current Living Situation Comment: louisaver comes 3 times a week for a couple of hours current occupational status: retired How many Children do You have: 1 Feels Safe at Home: Yes Childhood Exposure to Second-Hand Smoke: Yes (father smoked) caffeine: Yes (tea in morning ) Dental Care, Regularly: No Physical Activity Frequency: Does not Exercise Physical Activity Frequency Comment: states she wants to try to be more active Seatbelt Use: always Sunscreen Use: No (doesn't go in sun ) Assistive Devices: Cane, Glasses and Oxygen - Continuous Review of Systems Cardiovascular: + chest pain at rest Physical Exam Constitutional: WD/WN, vitals as above + acute distress (secondary to pain), + obese and cooperative Eyes: + anicteric sclerae ENMT: external ear and nose normal, oropharynx normal Neck: trachea midline Respiratory: normal respiratory effort, lungs clear to auscultation no cough Cardiovascular: Rate/Rhythm: regular rhythm and + tachycardic Heart Sounds: normal S1 and normal S2 Extremities: + pedal edema (1+ b/l) Chest (Breasts): Additional Comments: + chest wall tender to palpation Gastrointestinal (Abdomen): normal bowel sounds, soft, nontender, no hepatosplenomegaly Musculoskeletal: Head/Neck/Chest: normocephalic and head atraumatic Skin: no rashes, warm and dry Neurologic: moves all extremities Psychiatric: A+Ox3, euthymic affect Results & Data Results & Data ([facility]) Vital Signs (Past 12 Hours) Vital Signs Temp Pulse Pulse Resp BP BP Pulse Ox 11/10/20 23:03 102 H 146/74 H 99 11/10/20 22:22 36.8 C 109 H 16 130/68 97 Code Status & VTE Plan VTE Prophylaxis Plan VTE Prophylaxis will be ordered: No Supervising Physician Co-Signing Physician Notes Attending addendum: I have physically seen this patient, have supervised the medical residents activities, and agree with the H&P unless as otherwise noted. Assessment and Plan: Chest pain- The patient will be admitted to telemetry for serial cardiac enzymes, serial EKG's, cardiac rhythm monitoring and a 2-D echocardiogram with Dopplers. Chest CT to be ordered Famotidine 20 mg IV every 12 hours to address possible GI component May be secondary to fibromyalgia flareup Diabetes mellitus type 2- Placed on Accu-Cheks before meals and at bedtime with NovoLog coverage per scale check hemoglobin A1c Pulmonary embolism- Continue Eliquis Remaining orders and notations as noted Resident Activity Tracking Resident Involvement: Resident Care Provided Care Provided: Adult Hospital Medicine (1) Hypothyroid Hypothyroidism type: unspecified Qualified Code(s): E03.9 - Hypothyroidism, unspecified (2) Chest pain Chest pain type: unspecified Qualified Code(s): R07.9 - Chest pain, unspecified
[2020-11-11] MEDS ORDERED: SODIUM CHLORIDE 0.65% NA SOLN 45 ML (OCEAN) ONE (01:11)
[2020-11-11] MEDS ORDERED: FAMOTIDINE 20MG/5ML IV PUSH IV STA (01:25)
[2020-11-11] MEDS ORDERED: ONDANSETRON INJ 2 MG/ML 2 ML VIAL IV PRN (02:54)
[2020-11-11] MEDS ORDERED: IPRATROPIUM BROMIDE/ALBUTEROL respimat INH INH PRN (02:54)
[2020-11-11] MEDS ORDERED: Albuterol HFA 8 GM Inhaler (Combivent Respimat P&T Subs) INH PRN (03:06)
[2020-11-11] MEDS ORDERED: Ipratropium HFA Inhaler (Combivent Respimat P&T Subs) INH PRN (03:07)
[2020-11-11] MEDS ORDERED: diphenhydrAMINE 50 MG/ML VIAL IV STA (03:22)
[2020-11-11 03:27] LABS: NT Pro B Type Natriuretic Pept 17 pg/ml (0-900)
[2020-11-11] MEDS: MoRPHine SULFATE IR 15 MG TAB (IMMEDIATE RELEASE) PO PRN ×3 (03:32→18:19)
[2020-11-11] MEDS: ACETAMINOPHEN 325 MG TAB PO PRN ×2 (03:48→20:05)
[2020-11-11 06:14] LABS: Basophils # (auto) 0.02 K/uL (0-0.2); Basophils % (auto) 0.1 %; Eosinophils # (auto) 0.17 K/uL (0-0.5); Eosinophils % (auto) 1.2 %; Hematocrit (blood only) 44.1 % (37-47); Hemoglobin 13.9 g/dL (12.0-16.0); Immature Granulocytes # (auto) 0.02 K/uL (0.00-0.02); Immature Granulocytes % (auto) 0.1 %; Lymphocytes # (auto) 3.15 K/uL (1.2-3.4); Lymphocytes % (auto) 22.8 %; Mean Corpuscular Hemoglobin 28.3 pg (25-34); Mean Corpuscular Hgb Conc 31.5 g/dL (32-36); Mean Corpuscular Volume 89.8 fL (80-100); Monocytes # (auto) 1.03 K/uL (0.11-0.59); Monocytes % (auto) 7.4 %; Neutrophils # (auto) 9.45 K/uL (1.4-6.5); Neutrophils % (auto) 68.4 %; Platelet Count 262 K/uL (130-400); RDW Coefficient of Variation 14.8 % (11.5-14.5); RDW Standard Deviation 48.8 fL (36.4-46.3); Red Blood Count 4.91 M/uL (4.2-5.4); White Blood Count 13.84 K/uL (4.8-10.8)
[2020-11-11 06:39] LABS: BUN Creatinine Ratio 16.7 (10-20); Calcium 9.2 mg/dl (8.5-10.1); Creatinine Clr Calc Pharmacy 80.8 ml/min; Est GFR (African American) 94.3 ml/min; Est GFR (Non-African American) 81.3 ml/min; Potassium 3.5 mmol/L (3.5-5.1)
[2020-11-11] MEDS: LEVOTHYROXINE SODIUM 150 MCG TABLET PO SCH (07:21)
--- NOTE | 2020-11-11 07:32 | Electrocardiogram Report ---
Test Reason : Blood Pressure : / mmHG Vent. Rate : 111 BPM Atrial Rate : 111 BPM P-R Int : 150 ms QRS Dur : 074 ms QT Int : 324 ms P-R-T Axes : 064 -18 066 degrees QTc Int : 440 ms Sinus tachycardia Poor R wave progression, consider anterior ID vs. lead placement vs. LVH Abnormal ECG Confirmed by Chano Toledo ([id number]) on 11/11/2020 7:31:57 AM Also confirmed by Chano Toledo ([id number]), news video editor Herman Romero ([id number]) on 11/13/2020 3:12:06 PM Referred By: REFERRED SELF Confirmed By:Uvaldo Toledo
--- NOTE | 2020-11-11 07:34 | Hospitalist Progress Note ---
Date of Service November 11, 2020 Assessment & Plan (1) Chest pain: Plan: Mrs. Jose is a 70 yo woman who presented for evaluation of sudden onset central chest pain, admitted for ACS rule out. 2 troponin are negative, pt refuses CTA due to dye allergy and back pain. . 2EKG without acute ST segment changes. - given history of multiple PEs in the past and ongoing tachycardia, lower risk as pt is on eliquis for anticoagulation, ordered a V/Q and LE dopplers - famotidine 20mg IV ordered in the event acid reflux/peptic ulcer disease is origin, GI cocktail offered -This began about 30 minutes after eating. The patient frequently sits up and she is obese my concern is that this still could be reflux related event (2) Diastolic heart failure: Plan: Patient fits the profile for having some right-sided diastolic heart failure given the fact that she is got peripheral edema she is obese and likely has some nocturnal hypoventilation and she states she recently had a prolonged hospital course in [facility] for diuresis of significant edema. She reportedly sees a physician in [place] and was considered for heart catheterization. She did not describe this resulting from any chest pain events. I still do believe her initial event is noncardiac in nature however we will get an echocardiogram continue to diurese her and get old records from [place] to better understand her heart condition. We may also even enroll her locally in a heart failure program as she states that she was unaware of existed and it would be a more convenient drive (3) Dyslipidemia: Plan: - am lipid panel ordered - not currently on a cholestrol lowering agent (4) Type 2 diabetes mellitus: Plan: - most recent HbA1c was at goal at 7.2 in 07/2020 (per [facility] records). Goal < 7.5. - repeat HbA1c in am - stopping metformin with ssi to cover - diabetic diet - continue ayden inhibitor - patient is not on a statin (5) Pulmonary embolism: Plan: - history of x 2 - on chronic anticoagulation with eliquis - non-contrast chest CT as above - pending b/l venous duplex and VQ scan in am if suspion remains high (6) Metabolic alkalosis: Plan: - serum bicarb mildly elevated to 34 - suspect this is due to chronic loop diuretic therapy (on Bumex) vs. compensatory to a possible respiratory acidosis prior to admission (patient reported shallow breathing due to worsening pain on inspiration). No history of diarrhea. BUN not elevated, contraction alkalosis unlikely. - trend BMP (7) Fibromyalgia: Plan: - chronic - continue home morphine regimen - dilaudid prn for breaththrough pain (8) Hypothyroid: Plan: - continue home dose levothyroxine, last tsh high in 03/25 will recheck (9) Sleep apnea: Plan: - CPAP qhs DVT ppx: On eliqus Diet: Heart Healthy, Carb Consistent DM2 Dispo: Med/tele Code: Full, I discussed with patient Admission and Anticipated Discharge Date Admission Date: November 11, 2020 Review of Systems Review of Systems: Moderate distress and fatigue no headache, no visual changes no speech or swallowing issues Scribe central chest pain, pleuritic in nature, not a pressure or palpitation no shortness of breath, does have some dyspnea on exertion cough or wheezes Perhaps epigastric abdominal pain, but no nausea or vomiting, diarrhea or constipation no dysuria, hematuria or frequency no focal joint pain or swelling no back pain, CVA tenderness or radicular pain no bruising, bleeding or rashes no focal signs of weakness or numbness or altered sensation complaints of anxiety & depression.. Physical Exam Physical Exam: The patient appeared morbidly obese with right-sided heart failure and tearful Vital signs as documented. Head exam is normocephalic atraumatic Neck is with 2 cm JVD, thyromegaly although she states she has a goiter, or carotid bruits. Lungs are clear to auscultation, no focal loss of breath sounds no pleural rub is heard Cardiac exam, Rhythm is regular.. No murmurs, rubs or gallops. Reproducible pain on examination Abdominal exam reveals normal bowel sounds, soft non tender, no masses Extremities are 2+ edematous and painful and both pedal pulses are present Neurologic exam is alert and oriented, no focal loss of strength or sensation Skin is with deep venous varicosities to the left buttocks and upper thigh Psychologically is with concerns for anxiety and depression Results & Data Results & Data ([facility]) Vital Signs (Past 12 Hours) Vital Signs Temp Pulse Pulse Resp BP BP Pulse Ox 11/11/20 05:20 96 H 11/11/20 04:50 97.5 F L 99 H 20 120/71 97 11/11/20 02:07 96 H 148/75 H 98 11/11/20 01:10 97 11/11/20 01:08 103 H 157/80 H 99 11/10/20 23:03 102 H 146/74 H 99 11/10/20 22:22 98.2 F 109 H 16 130/68 97 PG Care Time/CCT Total # of Minutes Spent Total Time Spent with Patient: Total time spent is greater than 50% in coordination of care (as documented) at patient's floor/unit and/or counseling patient: Coding Level of Care Code 72975 Subseq Hosp Care Lvl 3 Diagnoses Chest pain R07.9 Chest pain type: unspecified Dyslipidemia E78.5 Type 2 diabetes mellitus E11.9 Pulmonary embolism I26.99 Metabolic alkalosis E87.3 Fibromyalgia M79.7 Hypothyroid E03.9 Hypothyroidism type: unspecified Sleep apnea G47.30 Diastolic heart failure I50.30 (1) Hypothyroid Hypothyroidism type: unspecified Qualified Code(s): E03.9 - Hypothyroidism, unspecified (2) Chest pain Chest pain type: unspecified Qualified Code(s): R07.9 - Chest pain, unspeci fied
[2020-11-11] MEDS ORDERED: GLUCOSE 10 TABS/TUBE PO PRN (07:38)
[2020-11-11] MEDS ORDERED: GLUCAGON FOR INJ 1 MG VIAL SQ PRN (07:38)
[2020-11-11] MEDS ORDERED: CARBOHYDRATES FOR HYPOGLYCEMIA PO PRN (07:38)
[2020-11-11] MEDS ORDERED: DEXTROSE 50% 50 ML SYRINGE IV PRN (07:38)
[2020-11-11] MEDS ORDERED: GLUCOSE 40% GEL 15 GM TUBE PO PRN (07:38)
[2020-11-11] MEDS ORDERED: ALUMINUM/MAGNESIUM SUSP 18 ML, LIDOCAINE VISCOUS 2% SOLN 6 ML, BARCODE IDENTIFIER 1 EA PO PRN (07:39)
[2020-11-11] MEDS: ALPRAZolam 0.5 MG TABLET PO PRN ×3 (07:54→18:19)
[2020-11-11] MEDS: APIXABAN 5 MG TABLET PO SCH ×2 (07:55→21:57)
[2020-11-11] MEDS ORDERED: metFORMIN HCL 500 MG TAB PO SCH (08:00)
--- NOTE | 2020-11-11 08:30 | XRay Report ---
XR chest 1V portable CLINICAL HISTORY: Chest Pain COMPARISON STUDY: March 21, 2020 FINDINGS: No pneumothorax. Possible minimal left pleural effusion is seen. Diffuse prominence of pulmonary interstitium and reticular opacities at bilateral bases appear more p rominent since prior study. Cardiomediastinal silhouette is within normal limits in size. No significant pulmonary vascular congestion.. Aorta is tortuous. Osseous structures: Degenerative changes of the spine. IMPRESSION: 1. Possible small left pleural effusion. 2. Reticular opacities at bilateral bases could represent scattered atelectasis or infiltrates. ACT 112: Negative or not required by law. The above report was generated using voice recognition software. It may contain grammatical, syntax o r spelling errors. Electronically signed by: Fior Kelley DO 11/11/2020 8:28 AM
[2020-11-11] MEDS ORDERED: BUMETANIDE 1 MG TAB PO SCH (09:00)
--- NOTE | 2020-11-11 10:24 | Electrocardiogram Report ---
Test Reason : Blood Pressure : / mmHG Vent. Rate : 090 BPM Atrial Rate : 090 BPM P-R Int : 156 ms QRS Dur : 072 ms QT Int : 360 ms P-R-T Axes : 052 -05 043 degrees QTc Int : 440 ms Normal sinus rhythm Low voltage QRS Poor R wave progression, consider anterior TX vs. lead placement vs. LVH Abnormal ECG When compared with ECG of 10-NOV-2020 22:18, No significant change was found Confirmed by Chano Toledo ([id number]) on 11/11/2020 10:24:45 AM Referred By: REFERRED SELF Confirmed By:Uvaldo Toledo
--- NOTE | 2020-11-11 10:35 | Ultrasound Report ---
ULTRASOUND BILATERAL LOWER EXTREMITY VENOUS CLINICAL HISTORY: Atypical chest pain. COMPARISON STUDY: Left lower extremity venous ultrasound dated 10/04/2018 and right lower extremity enrrique ous ultrasound dated 09/16/2016 TECHNIQUE: Real-time, grayscale, and color Doppler sonography of the deep veins of the right and left lower extremity was performed from the inguinal crease to the calf. The patient was unable to tolera te full compressions. FINDINGS: There is no sonographic evidence of deep venous thrombosis identified in the right or left lower extremity. The common femoral, superficial femoral, and popliteal veins are patent and normally compressible bilaterally. The greater saphenous vein and the profunda femoris vein at the junction w ith the common femoral vein are clear in both legs. The visualized calf veins are patent bilaterally. IMPRESSION: There is no sonographic evidence of deep venous thrombosis identified in the right or lef t lower extremity. ACT 112: Negative or not required by law. Electronically signed by: Jose Curtis M.D. 11/11/2020 10:33 AM
[2020-11-11] MEDS: INSULIN ASPART 100 UNITS/ML 3 ML PEN SC SCH ×3 (12:01→22:08)
[2020-11-11] MEDS ORDERED: DICLOFENAC SOD 1% GEL 100 GM TUBE EXT PRN (12:08)
[2020-11-11] MEDS: KETOROLAC TROMETHAMINE 15 MG/ML VIAL IV PRN ×2 (12:15→20:06)
[2020-11-11] MEDS: LIDOCAINE 5% 1 PATCH TD SCH (12:40)
[2020-11-11] MEDS: BUMETANIDE 2 MG in SYRINGE 0 ML IV SCH (16:56)
[2020-11-11] MEDS: PANTOprazole 40 MG in SYRINGE 0 ML IV SCH (21:57)
[2020-11-12] MEDS: MoRPHine SULFATE IR 15 MG TAB (IMMEDIATE RELEASE) PO PRN ×5 (00:58→19:46)
[2020-11-12] MEDS: ACETAMINOPHEN 325 MG TAB PO PRN ×3 (01:01→19:45)
[2020-11-12] MEDS: KETOROLAC TROMETHAMINE 15 MG/ML VIAL IV PRN (02:16)
[2020-11-12] MEDS: LEVOTHYROXINE SODIUM 150 MCG TABLET PO SCH (05:59)
[2020-11-12 07:48] LABS: Estimated Average Glucose 166 mg/dl; Hemoglobin A1C 7.4 % (4.5-5.6)
[2020-11-12] MEDS: APIXABAN 5 MG TABLET PO SCH ×2 (08:28→20:47)
[2020-11-12] MEDS: PANTOprazole 40 MG in SYRINGE 0 ML IV SCH ×2 (08:28→20:47)
[2020-11-12] MEDS: INSULIN ASPART 100 UNITS/ML 3 ML PEN SC SCH ×4 (08:28→20:34)
[2020-11-12] MEDS: BUMETANIDE 2 MG in SYRINGE 0 ML IV SCH ×2 (08:28→17:35)
[2020-11-12] MEDS: LIDOCAINE 5% 1 PATCH TD SCH (08:28)
[2020-11-12 08:29] LABS: BUN Creatinine Ratio 18.3 (10-20); Calcium 9.2 mg/dl (8.5-10.1); Creatinine Clr Calc Pharmacy 58.3 ml/min; Est GFR (African American) 63.5 ml/min; Est GFR (Non-African American) 54.8 ml/min; Potassium 3.2 mmol/L (3.5-5.1)
[2020-11-12 08:39] LABS: Thyroid Stimulating Hormone 0.126 uIu/ml (0.300-4.500)
[2020-11-12 08:52] LABS: T4 Free Thyroxine 1.94 ng/dl (0.8-1.6)
[2020-11-12] MEDS ORDERED: MAGNESIUM SULFATE / D5W 1 GM/100 ML BAG IV ONE (09:02)
--- NOTE | 2020-11-12 09:07 | Hospitalist Progress Note ---
Date of Service November 12, 2020 Assessment & Plan (1) Chest pain: Plan: Mrs. Jose is a 70 yo woman who presented for evaluation of sudden onset central chest pain, admitted for ACS rule out. 2 troponin are negative, pt refuses CTA due to dye allergy and back pain. Cannot identify a VQ scan . 2EKG without acute ST segment changes. - given history of multiple PEs in the past and ongoing tachycardia, lower risk as pt is on eliquis for anticoagulation, ordered a V/Q which she cannot tolerate and LE dopplers are currently negative for DVT She does describe the fact that she may have had arterial Dopplers in [facility] she does have discordant pulses to her lower extremities she states that the arterial Dopplers were without significant concern we are awaiting records -Consider for chest pain complexes secondary to acid reflux/peptic ulcer disease is origin, GI cocktail offered in transit improves her symptoms her symptoms were then improved significantly as we have continued on IV Protonix Patient cannot recall having an EGD in her recent past we will treat her medically and if improves may be have an EGD as an outpatient for follow-up with your family doctor (2) Diastolic heart failure: Plan: Patient fits the profile for having some right-sided diastolic heart failure given the fact that she is got peripheral edema she is obese and likely has some nocturnal hypoventilation and she states she recently had a prolonged hospital course in [facility] for diuresis of significant edema. She reportedly sees a physician in [place] and was considered for heart catheterization. Patient was seen by heart failure physicians information assistant Faith Sanchez but she still wishes to follow with [place]. Doing diuresis pending echocardiogram (3) Dyslipidemia: Plan: - am lipid panel ordered - not currently on a cholestrol lowering agent (4) Type 2 diabetes mellitus: Plan: - most recent HbA1c was at goal at 7.2 in 07/2020 (per [facility] records). Goal < 7.5. - repeat HbA1c in am - stopping metformin with ssi to cover patient request education and consider instituting insulin therapy at home - diabetic diet - continue ayden inhibitor - patient is not on a statin (5) Pulmonary embolism: Plan: - history of x 2 - on chronic anticoagulation with eliquis no evidence of current issues we will continue her Eliquis therapy - non-contrast chest CT as above -Negative b/l venous duplex and VQ scan attempted but unable to be tolerated by patient (6) Metabolic alkalosis: Plan: - serum bicarb mildly elevated to 34 continues likely from contraction alkalosis - suspect this is due to chronic loop diuretic therapy (on Bumex) vs. compensatory to a possible respiratory acidosis prior to admission (patient reported shallow breathing due to worsening pain on inspiration). No history of diarrhea. BUN not elevated, contraction alkalosis unlikely. - trend BMP (7) Fibromyalgia: Plan: - chronic - continue home morphine regimen - dilaudid prn for breaththrough pain Lidoderm patch to back (8) Hypothyroid: Plan: - continue home dose levothyroxine, l TSH is low T4 is high reduce levothyroxine dose (9) Sleep apnea: Plan: - CPAP qhs DVT ppx: On eliqus Diet: Heart Healthy, Carb Consistent DM2 Dispo: Med/tele Code: Full, I discussed with patient Admission and Anticipated Discharge Date Admission Date: November 11, 2020 Subjective Patient is much satisfied with improvement of her chest pain she remains on proton pump inhibitor. An echocardiogram is pending. She cannot tolerate VQ scan due to her inability to lay flat due to back pain. We discussed alternative modalities to treat her back pain. Review of Systems Review of Systems: Mild distress and fatigue no headache, no visual changes no speech or swallowing issues Improving centralized chest pain but is still positional Dyspnea on exertion without cough or wheezes no abdominal pain, nausea or vomiting, diarrhea or constipation no dysuria, hematuria or frequency no focal joint pain significant bilateral lower extremity swelling is present no back pain, CVA tenderness or radicular pain no bruising, bleeding or rashes no focal signs of weakness or numbness or altered sensation no complaints of anxiety or depression.. Physical Exam Physical Exam: The patient appeared well nourished and normally developed. She still appears to be slightly volume overloaded Vital signs as documented. Head exam is normocephalic atraumatic Neck is with 2 cm JVD, no thyromegaly, or carotid bruits. Lungs are clear to auscultation, initially the bases Cardiac exam, Rhythm is regular.. No murmurs, rubs or gallops. Abdominal exam reveals normal bowel sounds, soft non tender, no masses Extremities are 1-2+ bilaterally edematous and both pedal pulses are present however right stronger than left Neurologic exam is alert and oriented, no focal loss of strength or sensation Skin is without bruises or rashes Psychologically is without concerns for anxiety or depression Results & Data Results & Data ([facility]) Vital Signs (Past 12 Hours) Vital Signs Temp Pulse Pulse Resp BP Pulse Ox 11/12/20 07:00 97.7 F 82 20 115/72 97 11/12/20 03:26 98.1 F 90 20 111/68 93 11/12/20 00:30 93 H 11/11/20 22:38 98.2 F 93 H 18 114/67 92 PG Care Time/CCT Total # of Minutes Spent Total Time Spent with Patient: Total time spent is greater than 50% in coordination of care (as documented) at patient's floor/unit and/or counseling patient: Coding Level of Care Code 63353 Subseq Hosp Care Lvl 3 Diagnoses Chest pain R07.9 Chest pain type: unspecified Diastolic heart failure I50.30 Dyslipidemia E78.5 Type 2 diabetes mellitus E11.9 Pulmonary embolism I26.99 Metabolic alkalosis E87.3 Fibromyalgia M79.7 Hypothyroid E03.9 Hypothyroidism type: unspecified Sleep apnea G47.30 (1) Hypothyroid Hypothyroidism type: unspecified Qualified Code(s): E03.9 - Hypothyroidism, unspecified (2) Chest pain Chest pain type: unspecified Qualified Code(s): R07.9 - Chest pain, unspecified
--- NOTE | 2020-11-12 15:18 | Heart Failure Consultation ---
Date of Consultation November 12, 2020 Assessment & Plan (1) Lower extremity edema: Patient has chronic lower extremity edema. BNP is 17 and there is minimal congestion on her CXR. Her weight is down 40 lb from her previous baseline. Echocardiogram from 2019 with preserved EF and no valvular abnormalities. Edema seems more consistent with venous insufficiency. She follows with a vascular physician. She is scheduled for upcoming venous insufficiency studies. She may have already had arterial studies by her description- results not readily available. Recommend elevation and ongoing diuresis. (2) Chest pain: Likely noncardiac. Troponin negative. EKG without ST changes. Considering GI vs PE. Patient unable to have CTA scan due to allergy and is unable to lay down for V/Q scan. She is already anticoagulated with Eliquis. Being treated with IV Pantoprazole. Could be from fluid retention however CXR without evidence of congestion. Would continue to optimize her volume status as long as her creatinine is normal. Patient scheduled for cardiac catheterization at the end of the month with her primary rent collector. Symptoms are improving. (3) Sleep apnea: Continue CPAP. (4) Morbid obesity: Likely a contributing factor to her ongoing dyspnea. Diet and exercise as tolerated. Patient does not have a prior history of heart failure. Her symptoms are likely multi-factorial- OHS/KEILY, fibromyalgia, deconditioning, venous insufficiency. She currently follows with Dr. Coronel in [place] and prefers to continue follow up with him as her primary rent collector. We discussed some general heart failure recommendations that may help with fluid retention. She is going to start documenting her daily weights. Recommend low sodium diet. If patient decides she prefers to transition her cardiology care to [facility] we are happy to see her. Would need to establish care with primary rent collector in the group. Disposition: Will continue to follow during hospitalization. Will plan to do follow up discharge calls through the heart failure program. Will also have [facility] care coordination on board. History of Present Illness Attending Physician: Didier Bush MD History of Present Illness Ms. Jose is a 70 year old female with a history of DMII, morbid obesity, h/o PE, hypertension, hypothyroidism, KEILY/OHS, and fibromyalgia. Recent cardiac studies: 1. Echo 04/29/2018: Normal LV size, mild concentric LVH. LVEF 60-65%. No RWMA. No significant valvular pathology. She is currently following with Dr. Coronel in [place] for cardiology. She was recently hospitalized in [place] for 11 days "to remove fluid." We do not have any recent records available. She was evaluated recently and is scheduled for cardiac catheterization later this month. Patient presented 11/10/20 with chest pain. She describes this as substernal and radiates to her shoulders. She states it came on very acutely while she was sitting at home crocheting. There is a pleuritic component and she was having trouble with conversation due to the pain. After 2 hours she decided to call 911.Troponin was negative. ProBNP 17. CXR with no significant pulmonary congestion. Small left pleural effusion. Doppler negative for DVT. CTA unable to be done due to her iodine allergy. V/Q considered but patient is unable to lay flat due to her chronic spine issues. Today patient is sitting in a chair at the bedside. She continues to have symptoms but feels they are improving. She is able to talk more easily today. She denies worsening shortness of breath. She is on O2, 2L. Her edema is at baseline. She denies orthopnea but chronically sleeps in her recliner due to back pain. She denies PND, palpitations, melena. Allergies Allergy/AdvReac Type Severity Reaction Status Date / Time adhesive Allergy Severe SKIN Verified 11/11/20 00:38 BLISTERS/RED-AND WITH EKG STICKERS latex Allergy Severe BLISTERS/RED Verified 11/11/20 00:38 SKIN meperidine Allergy Severe CAN NOT Verified 11/11/20 00:38 FUNCTION Bactrim Allergy Unknown THROAT AND Verified 10/26/17 13:37 TONGUE SWELL Cipro Allergy Unknown UNKNOWN Verified 10/26/17 13:37 REACTION ciprofloxacin Allergy Unknown UNKNOWN Verified 11/11/20 00:38 REACTION Iodinated Contrast Media Allergy Unknown REDNESS Verified 11/11/20 00:38 AND SWELLING iodine Allergy Unknown Swelling/Red Verified 11/11/20 00:38 Skin-TOPICAL OK sulfamethoxazole Allergy Unknown THROAT AND Verified 07/02/20 14:49 TONGUE SWELL trimethoprim Allergy Unknown THROAT AND Verified 07/02/20 14:49 TONGUE SWELL clindamycin Allergy Unknown Verified 11/12/20 09:23 erythromycin base Allergy MEDS Verified 11/12/20 09:24 ENDING IN "MYCIN" diazepam AdvReac Severe CAN NOT Verified 07/02/20 14:49 FUNCTION MEDS ENDING IN MYCIN Allergy Severe ITCHING, Uncoded 11/11/20 00:37 SWELLING Unclassified Drugs Allergy Unknown ANY Uncoded 07/02/20 14:49 MYCINS-ITCHY THROAT SWELLING Home Medications Medication Instructions Recorded Confirmed Type albuterol sulfate 90 mcg/actuation 1 - 2 puff INHALATION Q6H PRN 02/17/18 11/11/20 History aerosol inhaler (ProAir HFA) alprazolam 0.5 mg tablet (Xanax) 0.5 mg PO QID PRN 02/17/18 11/11/20 History cholecalciferol (vitamin D3) 50 3,000 unit PO DAILY 02/17/18 11/11/20 History mcg (2,000 unit) capsule (Vitamin D3) fluticasone propionate 50 1 spray INTRANASAL HS PRN 02/17/18 11/11/20 History mcg/actuation nasal spray,suspension (Flonase Allergy Relief) acetaminophen 650 mg 1,300 mg PO BID 10/04/18 11/11/20 History tablet,extended release (Tylenol 8 Hour) loratadine-pseudoephedrine ER 10 1 tab PO HS 10/04/18 11/11/20 History mg-240 mg tablet,extended [id number] (Claritin-D 24 Hour) apixaban 5 mg tablet (Eliquis) 5 mg PO BID 07/02/20 11/11/20 History vitamin B complex (B 1 tab PO DAILY 07/02/20 11/11/20 History Complex-Vitamin B12) bumetanide 1 mg tablet 1 mg PO BID 11/11/20 11/11/20 History clobetasol 0.05 % topical cream 1 applic TOPICAL UD 11/11/20 11/11/20 History cyanocobalamin (vitamin B-12) 0 mcg PO DAILY 11/11/20 11/11/20 History 1,000 mcg tablet (Vitamin B-12) ipratropium 20 mcg-albuterol 100 1 puff INHALATION QID PRN 11/11/20 11/11/20 History mcg/actuation mist for inhalation (Combivent Respimat) ketoconazole 2 % topical cream 1 applic TOPICAL BID PRN 11/11/20 11/11/20 History levothyroxine 300 mcg tablet 300 mcg PO DAILY 11/11/20 11/11/20 History metformin 500 mg tablet 500 mg PO BIDM 11/11/20 11/11/20 History morphine 30 mg immediate release 30 mg PO Q4 11/11/20 11/11/20 History tablet sodium chloride 0.65 % nasal spray 2 spray INTRANASAL Q24W PRN 11/11/20 11/11/20 History aerosol (Saline Mist) triamcinolone acetonide 0.1 % 1 applic TOPICAL UD PRN 11/11/20 11/11/20 History topical ointment Patient History Medical History (Updated 11/12/20 @ 15:04 by Faith Sanchez PA-C) Anxiety Bronchitis CPAP (continuous positive airway pressure) dependence Diabetes mellitus, type 2 Elevated d-dimer Hepatitis C Hx of blood clots Hx of cancer of uterus Hx of sleep apnea Hypertension Hypothyroidism Lump/cyst? 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) don't know if the right twiested kideny functions Surgical History Hx of hysterectomy Family History Other Family history non-contributory Social History Smoking Status: Never smoker Second Hand Exposure: No; Hx Alcohol Use: No Hx Substance Use: No Preferred Language: Romanian Communication Ability: Effective Visual Impairment: Limited Hearing Ability: Normal Wad Lubricator Required: No Beliefs That Will Affect Care: None marital status: Current Living Situation: Alone Current Living Situation Comment: helder comes 3 times a week for a couple of hours current occupational status: retired How many Children do You have: 1 Feels Safe at Home: Yes Childhood Exposure to Second-Hand Smoke: Yes (father smoked) caffeine: Yes (tea in morning ) Dental Care, Regularly: No Physical Activity Frequency: Does not Exercise Physical Activity Frequency Comment: states she wants to try to be more active Seatbelt Use: always Sunscreen Use: No (doesn't go in sun ) Assistive Devices: Cane and Glasses Physical Exam Physical Exam: Constitutional: Alert, oriented, in no acute distress. Morbidly obese. HEENT: Head is atraumatic and normocephalic. EOMs intact. Sclera anicteric. Face is symmetric. No perioral cyanosis. Mucous membranes moist. Neck: Supple, JVD noted just above the clavicle sitting upright. - HJR Pulmonary: Normal respiratory effort, clear to auscultation bilaterally Cardiac: Regular rate and rhythm. Normal S1 and S2, no gallops, no rubs, no murmurs Extremities: 2+ radial pulses bilaterally. 2+ posterior tibialis pulses bilaterally. 2+ generalized, nonpitting lower extremity edema. No cyanosis or clubbing. Abdomen: Normal bowel sounds, soft, non-tender, no abdominal mass palpated Skin: Normal skin color, turgor, no rash, no skin lesions. Lower extremity varicosities. Discoloration noted of the feet and toes. Ecchymosis posterior left thigh. Neurological: Patient is awake, alert, and oriented. Pleasant and cooperative. Answers questions appropriately. Speech is clear. Normal movement in all 4 extremities. Gait pattern not assessed Results & Data ([facility]) Vital Signs (Past 12 Hours) Vital Signs Temp Pulse Pulse Resp BP Pulse Ox 11/12/20 11:00 97.5 F L 83 22 124/75 96 11/12/20 08:00 82 11/12/20 07:00 97.7 F 82 20 115/72 97 11/12/20 03:26 98.1 F 90 20 111/68 93 Coding Level of Care Code 49803 Initial Inpt Care Lvl 3 Diagnoses Morbid obesity E66.01 Sleep apnea G47.30 Lower extremity edema R60.0 Chest pain R07.9 Chest pain type: unspecified (1) Chest pain Chest pain type: unspecified Qualified Code(s): R07.9 - Chest pain, unspecified
[2020-11-12] MEDS: POTASSIUM CHLORIDE CRTAB 20 MEQ TABCR PO SCH (20:47)
[2020-11-13] MEDS: MoRPHine SULFATE IR 15 MG TAB (IMMEDIATE RELEASE) PO PRN ×3 (00:07→09:18)
[2020-11-13] MEDS ORDERED: LEVOTHYROXINE SODIUM 125 MCG TABLET PO SCH (06:30)
[2020-11-13 08:41] LABS: BUN Creatinine Ratio 18.9 (10-20); Calcium 8.9 mg/dl (8.5-10.1); Creatinine Clr Calc Pharmacy 67.3 ml/min; Est GFR (African American) 75.6 ml/min; Est GFR (Non-African American) 65.2 ml/min; Magnesium 2.2 mg/dl (1.8-2.4); Potassium 3.6 mmol/L (3.5-5.1)
[2020-11-13] MEDS: BUMETANIDE 2 MG in SYRINGE 0 ML IV SCH (09:16)
[2020-11-13] MEDS: APIXABAN 5 MG TABLET PO SCH (09:16)
[2020-11-13] MEDS: PANTOprazole 40 MG in SYRINGE 0 ML IV SCH (09:17)
[2020-11-13] MEDS: LIDOCAINE 5% 1 PATCH TD SCH (09:17)
[2020-11-13] MEDS: POTASSIUM CHLORIDE CRTAB 20 MEQ TABCR PO SCH (09:17)
[2020-11-13] MEDS: ACETAMINOPHEN 325 MG TAB PO PRN (09:18)
[2020-11-13] MEDS: INSULIN ASPART 100 UNITS/ML 3 ML PEN SC SCH ×2 (09:22→12:32)
--- NOTE | 2020-11-13 10:26 | Billing Data ---
Date of Service November 13, 2020 Coding Level of Care Code 04302 Initial Inpt Care Lvl 3
--- NOTE | 2020-11-13 14:43 | XCELERA ---
[id number]
--- NOTE | 2020-11-13 18:20 | Discharge Summary ---
Date of Service November 13, 2020 Admission HPI Per Admitting Provider Ms. Jose is a 70 yo woman with a PMHx of type II diabetes mellitus, HLD, and morbid obesity who presents today for evaluation of sudden onset central chest pain. The pain came on ~ 5pm last night, about a half hour after eating dinner, when she was sitting in a chair crocheting. She describes it as substernal, radiating to the back between her shoulder blades. Does not travel up to the jaw or down the arm. She states that ambulating and attempting to take a deep breath make the pain worse. For this reason, she has been intentionally trying to take shallow breaths. She was given nitroglycerin on her way to the hospital, but it did not result in any improvement. She was in her usual state of health prior to the onset of the pain - ie no fevers/chills, cold symptoms. She has been seen by Dr. Coronel at [facility] in [place]. She states she has "fluid around her heart." She has a planned cardiac catheterization on 11/27/20 with him. She does have a history of pulmonary emboli x 2 - she is anticoagulated on Eliquis. She denies any history of acid reflux/gastric ulcers. She is on chronic morphine therapy for her history of fibromyalgia. Social Hx: No etoh, lifetime non-smoker. Family Hx: sister had a heart attack, she is unsure of at what age In the ED, she was afebrile with a tachycardic rate; BP 157/80 Breathing well on room air. Her WBC was mildly elevated to 13. Her CBC was otherwise WNL. Her kidney function was normal. Bicarb was mildly increased to 34. Trop was undetectable. D-Dimer not elevated. Lipase not elevated. COVID 19 neg. EKG showing sinus tachycardia, poor R wave progression, but no acute ST segment changes. CXR showing no pneumothorax, no consolidation. She was given 4mg IV morphine and a dose of Zofran, without improvement in her pain. Principal Diagnosis Atypical chest pain felt felt to be secondary to esophageal issues reflux or gastritis Previous history of pulmonary embolism on chronic anticoagulation Diabetes in poor control Acute diastolic heart failure with treatment diuretics Discharge Exam The patient appeared well Vital signs as documented. Lungs are clear to auscultation and appear unlabored Cardiac exam, Rhythm is regular.. No murmurs, rubs or gallops. Abdominal exam reveals normal bowel sounds, soft non tender, no masses Extremities are 1-2+ edematous and actually improved from previous and pedal pulses diminished but capillary refill is intact Neurologic exam is alert and oriented, no focal loss of strength or sensation Skin is with venous stasis changes Psychologically is without concerns for anxiety or depression. Discharge Data Allergies Allergy/AdvReac Type Severity Reaction Status Date / Time adhesive Allergy Severe SKIN Verified 11/11/20 00:38 BLISTERS/RED-AND WITH EKG STICKERS latex Allergy Severe BLISTERS/RED Verified 11/11/20 00:38 SKIN meperidine Allergy Severe CAN NOT Verified 11/11/20 00:38 FUNCTION Bactrim Allergy Unknown THROAT AND Verified 10/26/17 13:37 TONGUE SWELL Cipro Allergy Unknown UNKNOWN Verified 10/26/17 13:37 REACTION ciprofloxacin Allergy Unknown UNKNOWN Verified 11/11/20 00:38 REACTION Iodinated Contrast Media Allergy Unknown REDNESS Verified 11/11/20 00:38 AND SWELLING iodine Allergy Unknown Swelling/Red Verified 11/11/20 00:38 Skin-TOPICAL OK sulfamethoxazole Allergy Unknown THROAT AND Verified 07/02/20 14:49 TONGUE SWELL trimethoprim Allergy Unknown THROAT AND Verified 07/02/20 14:49 TONGUE SWELL clindamycin Allergy Unknown Verified 11/12/20 09:23 erythromycin base Allergy MEDS Verified 11/12/20 09:24 ENDING IN "MYCIN" diazepam AdvReac Severe CAN NOT Verified 07/02/20 14:49 FUNCTION MEDS ENDING IN MYCIN Allergy Severe ITCHING, Uncoded 11/11/20 00:37 SWELLING Unclassified Drugs Allergy Unknown ANY Uncoded 07/02/20 14:49 MYCINS-ITCHY THROAT SWELLING Consultations 11/11/20 00:12 ED Decision to Admit Stat 11/11/20 09:56 Consult Health Information Management Routine 11/12/20 09:01 [facility] Referral Routine Ordered Studies 11/11/20 05:18 US venous doppler LE Routine Hospital Course (1) Chest pain: Mrs. Jose is a 70 yo woman who presented for evaluation of sudden onset central chest pain, admitted for ACS rule out. - Etiology considered gastrointestinal as improved with gi cocktail and protonix bid - Heart Score of 4, moderate risk. Initial trop undetectable. trend serial trops. EKG without acute ST segment changes. Will hold off on Echo/cards consult on admission - add if patient bumps a trop or has ST segment changes. - unable to perform chest CT (cannot order a CTA as patient as iodinated contrast allergy) to assess for possible recurrent pulmonary embolism given history of multiple PEs in the past and ongoing tachycardia (although on anticoagulation, it is possible patient has failure of eliquis). also unable to tolerate laying flat for V/Q, will just keep on chronic Anticoagulation and does not seem to have an activ eGI bleed -protonix acid reflux/peptic ulcer disease is origin (2) Type 2 diabetes mellitus: - most recent HbA1c was at goal at 7.2 in 07/2020 (per [facility] records). Goal < 7.5. 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 to consider insulin therapy (3) Pulmonary embolism: - history of x 2 - on chronic anticoagulation with eliquis - b/l venous duplex negative for VTE and VQ scan refused by patient (4) Metabolic alkalosis: - serum bicarb mildly elevated to 34 - suspect this is due to chronic loop diuretic therapy (on Bumex) (5) Fibromyalgia: - chronic - continue home morphine regimen - dilaudid prn for breaththrough pain (6) Hypothyroid: - continue home dose levothyroxine (7) Sleep apnea: - CPAP qhs DVT ppx: On eliqus full code (8) Dyslipidemia: - am lipid panel ordered - not currently on a cholestrol lowering agent Total Time Total Time Spent Total Time Spent (In Minutes): It required greater than 30 minutes to prepare this patient for discharge Discharge Plan Discharge Items Patient Disposition: Home - Self-Care Reason For Visit: CHEST PAIN Discharge Diagnosis: atypical chest pain suspect from esophageal reflux acute on chronic diastolic heart failure diabetes Condition on Discharge: Good Activity: Per Instructions section Activity Comment: elevted legs when resting Non-emergency contact: Primary Care Provider and Leader Tier Call non-emergency contact if: your symptoms worsen and you have a fever Follow-up/Referrals: PCP,NO [Physician] - Diet: Carb Consistent or DM2 and Low Sodium (2gm) Addtl Attending Provider Instructions: please elevate legs when resting, and restrict your salt in your diet discuss with Dr Coronel, to have evaluating of your legs circulation Call 911 and go to the Emergency Room if: * You have tightness or pain in your chest that does not go away with rest or Nitroglycerin * You are very short of breath even with rest Call your doctor if any of the following symptoms or problems start or get worse: * Shortness of breath or difficulty breathing * Wake up at night short of breath * Chest pain * Cough * Swelling of your hands, fee, or legs * More fatigued or tired with your normal activity * Palpitations - sudden fast heart beats WEIGHT * Weigh yourself every morning after using the bathroom. * Use the same scale. * Wear the same amount of clothing. * Write your weight down on your chart. * Call your doctor if you gain more than 2-3 pounds in 1-2 days. MEDICATIONS * Use this discharge instruction sheet for instructions. * Take your medications at the time your doctor ordered. * Do not skip a dose of your medicines. * If you miss a dose of medicine, take as soon as possible, but DO NOT DOUBLE A DOSE. * Read your medicine information when you get home. * Know all of the side effects of your medicine. * Call your doctor's office if you have any side effects. * Be sure all of your doctors know what medicine and herbs you take (including cold, flu, and herbal medicine). * Pain Medicine: If you do not get relief from your pain, please call your doctor for help. Take the following with you to your follow-up doctor appointments: * Weight Chart * Medication List * List of questions Do not drink excessive alcohol, beer or wine. Pending Studies at Discharge: No Stand-Alone Forms: My [facility] [employer], Smoking Cessation Medications and DC Order Prescriptions: New omeprazole 20 mg capsule,delayed release(DR/EC) 20 mg PO BID 40 Days Qty: 80 RF: 0 Continued vitamin B complex [B Complex-Vitamin B12] Tablet 1 tab PO DAILY RF: 0 Eliquis 5 mg tablet 5 mg PO BID RF: 0 alprazolam [Xanax] 0.5 mg Tablet 0.5 mg PO QID PRN (Reason: Anxiety) RF: 0 albuterol sulfate [ProAir HFA] 90 mcg/actuation Hfa Aerosol Inhaler 1 - 2 puff INHALATION Q6H PRN (Reason: Shortness Of Breath) RF: 0 fluticasone propionate [Flonase Allergy Relief] 50 mcg/actuation Mcdougal,Suspension 1 spray INTRANASAL HS PRN (Reason: Nasal Congestion) RF: 0 cholecalciferol (vitamin D3) [Vitamin D3] 2,000 unit Capsule 3,000 unit PO DAILY RF: 0 acetaminophen [Tylenol 8 Hour] 650 mg Tablet Extended Release 1,300 mg PO BID RF: 0 metformin 500 mg tablet 500 mg PO BIDM RF: 0 levothyroxine 300 mcg tablet 300 mcg PO DAILY RF: 0 clobetasol 0.05 % Cream 1 applic TOPICAL UD RF: 0 cyanocobalamin (vitamin B-12) [Vitamin B-12] 1,000 mcg Tablet 0 mcg PO DAILY RF: 0 morphine 30 mg tablet 30 mg PO Q4 RF: 0 triamcinolone acetonide 0.1 % ointment 1 applic TOPICAL UD PRN (Reason: .[employer]ARE [employer]) RF: 0 bumetanide 1 mg tablet 1 mg PO BID RF: 0 ketoconazole 2 % Cream 1 applic TOPICAL BID PRN (Reason: ..) RF: 0 sodium chloride [Saline Mist] 0.65 % Aerosol,Mcdougal 2 spray INTRANASAL Q24W PRN (Reason: Nasal Congestion) RF: 0 Combivent Respimat 20-100 mcg/actuation Mist 1 puff INHALATION QID PRN (Reason: Shortness Of Breath Or Wheezing) RF: 0 Discontinued loratadine-pseudoephedrine [Claritin-D 24 Hour] 10-240 mg tablet extended release 24 hr 1 tab PO HS RF: 0 Discharge Orders: Discharge Order (Routine); Ordered 11/13/20 Ordered By: Didier Bush Admission Data Admit Date/Time: 11/12/20 18:01 Attending Provider: Didier Bush Admit Provider: Didier Bush Primary Care Provider: Aidan Ledbetter Other Providers: Wally Monique ; Faith Sanchez Other Interventions: Discharge Summary Assessment (RN) Last Done: 11/13/20 11:08 Coding Level of Care Code D/C DAY MANAGEMENT >30 MINS Diagnoses Chest pain R07.9 Chest pain type: unspecified Dyslipidemia E78.5 Type 2 diabetes mellitus E11.9 Pulmonary embolism I26.99 Metabolic alkalosis E87.3 Fibromyalgia M79.7 Hypothyroid E03.9 Hypothyroidism type: unspecified Sleep apnea G47.30
== END 2020-11-13 14:45 | disposition home or self-care (01) | DRG 391 ==
LOC: ED 21:57 → 2W 21:57 → SUATTDRO 11-11 00:43 → 2W 11-11 02:07
DX: K29.70 Gastritis, unspecified, without bleeding; Z88.1 Allergy status to other antibiotic agents; E03.9 Hypothyroidism, unspecified; Z91.041 Radiographic dye allergy status; I50.810 Right heart failure, unspecified; Z88.2 Allergy status to sulfonamides; Z91.040 Latex allergy status; Z99.81 Dependence on supplemental oxygen; I50.31 Acute diastolic (congestive) heart failure; G47.30 Sleep apnea, unspecified; E11.9 Type 2 diabetes mellitus without complications; E78.5 Hyperlipidemia, unspecified; Z79.01 Long term (current) use of anticoagulants; Z68.42 Body mass index [BMI] 45.0-49.9, adult; K22.9 Disease of esophagus, unspecified; I25.2 Old myocardial infarction; M79.7 Fibromyalgia; Z79.84 Long term (current) use of oral hypoglycemic drugs; Z86.711 Personal history of pulmonary embolism; E87.3 Alkalosis; R07.89 Other chest pain; E66.01 Morbid (severe) obesity due to excess calories